=== PATIENT | male | born 1975 | race Caucasian/White ===

== ENCOUNTER 2017-06-08 05:24 | Inpatient (IN) | payer OTHER ==
--- NOTE | 2017-06-08 05:36 | HP ---
COWS - Scale Resting Pulse: 2= [place] 101-120 Sweatin=Flushed/Facial Moisture Restless Observation: 1= Difficult to Sit Still Pupil Size: 1= Pupils >than Normal Bone or Joint Aches: 4=Acute Joint/Muscle Pain Runny Nose/ Eye Tearin= Runny Nose/Eyes GI Upset > 30mins: 1= Stomach Cramp Tremor Observation: 4= Gross Tremor/Twitching Yawning Observation: 1= 1-2x During Session Anxiety or Irritability: 2=Irritable/Anxious Goose Flesh Skin: 0=Smooth Skin COWS Score: 20 CIWA Score - CIWA Score Nausea/Vomitin-No Nausea/No Vomiting Muscle Tremors: 4-Moderate,w/Arms Extend Anxiety: 4-Mod. Anxious/Guarded Agitation: 1-Slight > Activity Paroxysmal Sweats: 2 Orientation: 1-Uncertain about Date Tacttile Disturbances: 0-None Auditory Disturbances: 0-None Visual Disturbances: 0-None Headache: 5-Severe CIWA-Ar Total Score: 17 Admission [facility] - HPI Chief Complaint: Alcohol and heroin withdrawal symptoms Allergies/Adverse Reactions: Allergies Allergy/AdvReac Type Severity Reaction Status Date / Time augumentin Allergy Severe Difficulty Uncoded 06/08/17 05:36 Breathing History of Present Illness: 42 years old male with a long history of alcohol and heroin dependence is seeking admission to detox. Patient has been in previous detox and reports 2 years of sobriety. He has medical history of asthma, emphysema, HTN, seizure disorder, GERD, depression and anxiety. He denies suicide attempt and suicidal ideation at this time. This is his first admission to [facility]. Exam Limitations: Intoxication - Ebola screening Have you traveled outside of the country in the last 21 days: No Have you had contact with anyone from an Ebola affected area: No Have you been sick,other than usual withdrawal symptoms: No Do you have a fever: No - Review of Systems Constitutional: Chills, Loss of Appetite, Malaise, Night Sweats, Changes in sleep EENT: reports: No Symptoms Reported, Nose Congestion, Sinus Pressure Respiratory: reports: No Symptoms reported Cardiac: reports: No Symptoms Reported GI: reports: Poor Appetite, Poor Fluid Intake, Abdominal cramping : reports: No Symptoms Reported Musculoskeletal: reports: Back Pain, Joint Pain, Muscle Pain, Muscle Weakness Integumentary: reports: Dryness, Flushing, Sweating Neuro: reports: Headache, Tremors, Weakness Endocrine: reports: No Symptoms Reported Hematology: reports: No Symptoms Reported Psychiatric: reports: Agitated, Anxious, Depressed Other Systems: Reviewed and Negative Patient History - Patient Medical History Hx Anemia: No Hx Asthma: Yes Hx Chronic Obstructive Pulmonary Disease (COPD): Yes (emphysema) Hx Cancer: No Hx Cardiac Disorders: No Hx Congestive Heart Failure: No Hx Hypertension: Yes Hx Hypercholesterolemia: No Hx Pacemaker: No HX Cerebrovascular Accident: No Hx Seizures: Yes Hx Dementia: No Hx Diabetes: No Hx Gastrointestinal Disorders: Yes (GERD) Hx Liver Disease: No Hx Genitourinary Disorders: No Hx Sexually Transmitted Disorders: No Hx Renal Disease (ESRD): No Hx Thyroid Disease: No Hx Human Immunodeficiency Virus (HIV): No (Negative 2016) Hx Hepatitis C: No (Negative 2016) Hx Depression: Yes Hx Suicide Attempt: No (Denies suicidal ideation at this time) Hx Bipolar Disorder: No Hx Schizophrenia: No Other Medical History: ANXIETY DISORDER - Patient Surgical History Past Surgical History: Yes Hx Neurologic Surgery: No Hx Cataract Extraction: No Hx Cardiac Surgery: No Hx Lung Surgery: No Hx Abdominal Surgery: No Hx Appendectomy: No Hx Cholecystectomy: No Hx Genitourinary Surgery: No Hx Orthopedic Surgery: No Other Surgical History: right arm abscess surgery secondary to heroin use Anesthesia Reaction: No - PPD History Previous Implant?: Yes Documented Results: Negative w/o proof Implanted On Prior [facility] Admission?: No PPD to be Administered?: Yes - Reproductive History Patient is a Female of Child Bearing Age (11 -55 yrs old): No (MALE) - Smoking Cessation Smoking history: Current every day smoker Have you smoked in the past 12 months: Yes Aproximately how many cigarettes per day: 20 Hx Chewing Tobacco Use: No Initiated information on smoking cessation: Yes 'Breaking Loose' booklet given: 06/08/17 - Substance & Tx. History Hx Alcohol Use: Yes Hx Substance Use: Yes Substance Use Type: Heroin, Opiates Hx Substance Use Treatment: Yes ([facility]) - Substances Abused Alcohol Route: Oral Frequency: Daily Amount used: LIQUOR-25 oz Age of first use: 9 Date of Last Use: 06/07/17 Heroin Route: Injection Frequency: Daily Amount used: 5 bags Age of first use: 37 Date of Last Use: 06/07/17 Cocaine Route: Injection Frequency: 3-6 times per week Amount used: 1 GRAM Age of first use: 10 Date of Last Use: 06/07/17 Family Disease History - Family Disease History Family History: Denies Family Disease History: Other: Father (Alcoholic) Admission Physical Exam [facility] - Physical General Appearance: Yes: Moderate Distress, Tremorous, Irritable, Sweating, Anxious HEENTM: Yes: Normal Voice, ALEXANDRA, Nasal Congestion Respiratory: Yes: Lungs Clear, Normal Breath Sounds, No Respiratory Distress Neck: Yes: Supple Breast: Yes: Breast Exam Deferred Cardiology: Yes: Tachycardia Abdominal: Yes: Normal Bowel Sounds Genitourinary: Yes: Within Normal Limits Back: Yes: Normal Inspection Musculoskeletal: Yes: Back pain, Muscle Pain, Muscle weakness Extremities: Yes: Tremors Neurological: Yes: Alert, Normal Mood/Affect, Normal Response Integumentary: Yes: Warm Lymphatic: Yes: Within Normal Limits - Diagnostic (1) Alcohol dependence with uncomplicated withdrawal Current Visit: Yes Status: Chronic (2) Opioid dependence with withdrawal Current Visit: Yes Status: Chronic (3) Cocaine dependence with withdrawal Current Visit: Yes Status: Chronic (4) Emphysema lung Current Visit: Yes Status: Chronic (5) Seizures Current Visit: Yes Status: Chronic (6) GERD (gastroesophageal reflux disease) Current Visit: Yes Status: Chronic (7) HTN (hypertension) Current Visit: Yes Status: Chronic (8) Depression Current Visit: Yes Status: Chronic Qualifiers: Depression Type: unspecified Qualified Code(s): F32.9 - Major depressive disorder, single episode, unspecified Cleared for Admission [facility] - Detox or Rehab [facility] Level of Care: Medically Managed Detox Regimen/Protocol: Methadone/Librium [facility] Breath Alcohol Content Breath Alcohol Content: 0.224 Vital Signs - Vital Signs Vital Signs Refused: Yes Temperature: 97.8 F Temperature Source: Oral Pulse Rate: 105 Respiratory Rate: 20 Blood Pressure: 129/89 BP Location: Left Arm - Height Height: 5 ft 6 in - Weight Weight: 198 lb Weight Measurement Method: Standing Scale Body Mass Index (BMI): 31.9 - Bowel Function Bowel Movement: No Urine Drug Screen - Test Device Lot Number: [id number] Expiration Date: 01/30/19 - Control Is Test Valid: Yes - Results Drug Screen Negative: No Urine Drug Screen Results: JULIAN-Cocaine, OPI-Opiates, BZO-Benzodiazepines ( STATES HIS HEROIN MAY HAVE BEEN TAINTED WITH BENZO. DENIES BZO USE), TCA- Tricyclic Antidepress, OXY-Oxycodone
[2017-06-08] MEDS ORDERED: MENTHOL/PHENOL 1 EACH UD MM PRN (06:03)
[2017-06-08] MEDS ORDERED: IBUPROFEN 400 MG TABLET (FP) PO PRN (06:03)
[2017-06-08] MEDS ORDERED: LOPERAMIDE HCL 2 MG CAPSULE PO PRN (06:03)
[2017-06-08] MEDS ORDERED: MAGNESIUM HYDROX 2400MG/30ML ORAL SUSPENSION 30 ML CUP PO PRN (06:03)
[2017-06-08] MEDS ORDERED: METHADONE HCL 10 MG TABLET (FOR DETOX USE ONLY) PO ONE ×3 (06:03→23:00)
[2017-06-08] MEDS ORDERED: P-EPHED 60MG/TRIPROLIDI 2.5MG TABLET PO PRN (06:03)
[2017-06-08] MEDS ORDERED: guaiFENesin/D-METHORPHAN HB 10 ML UNIT-DOSE CUPS PO PRN (06:03)
[2017-06-08] MEDS ORDERED: MAGNESIUM CITRATE 300 ML BOTTLE PO PRN (06:03)
[2017-06-08] MEDS ORDERED: chlordiazePOXIDE HCL 25 MG CAPSULE PO ONE (06:03)
[2017-06-08] MEDS ORDERED: MAG HYDROX/AL HYDROX/SIMETH 30 ML UNIT-DOSE CUP PO PRN (06:03)
[2017-06-08 06:29] VITALS: BMI 31.9
--- NOTE | 2017-06-08 09:06 | EKG ---
Test Reason : Blood Pressure : / mmHG Vent. Rate : 092 BPM Atrial Rate : 092 BPM P-R Int : 160 ms QRS Dur : 084 ms QT Int : 342 ms P-R-T Axes : 065 034 044 degrees QTc Int : 422 ms NORMAL SINUS RHYTHM NONSPECIFIC T WAVE ABNORMALITY ABNORMAL ECG NO PREVIOUS ECGS AVAILABLE Confirmed by Clint Edwards ([id number]) on 06/08/2017 9:06:20 AM Referred By: Confirmed By:Clint Edwards
[2017-06-08] MEDS: ACETAMINOPHEN 325 MG TABLET (FP) PO PRN ×3 (09:16→22:43)
--- NOTE | 2017-06-08 09:56 | PN ---
S CIWA - CIWA Score Nausea/Vomitin-Mild Nausea/No Vomiting Muscle Tremors: 4-Moderate,w/Arms Extend Anxiety: 4-Mod. Anxious/Guarded Agitation: 4-Moderately Restless Paroxysmal Sweats: 1-Minimal Palms Moist Orientation: 0-Oriented Tacttile Disturbances: 0-None Auditory Disturbances: 0-None Visual Disturbances: 0-None Headache: 0-None Present CIWA-Ar Total Score: 14 [facility] COWS - Scale Resting Pulse: 1= [place] 81-100 Sweatin= Chills/Flushing Restless Observation: 3= Extraneous Movement Pupil Size: 0= Normal to Room Light Bone or Joint Aches: 2= Severe Diffuse Aches Runny Nose/ Eye Tearin= Runny Nose/Eyes GI Upset > 30mins: 2= Nausea/Diarrhea Tremor Observation of Outstretched Hands: 2= Slight Tremor Visible Yawning Observation: 1= 1-2x During Session Anxiety or Irritability: 2=Irritable/Anxious Goose Flesh Skin: 0=Smooth Skin COWS Score: 16 S Progress Note (SOAP) Subjective: joint ache sweat tremor chill yawning nausea headaches Objective: 06/08/17 09:56 Vital Signs Temperature 97.9 F 06/08/17 06:30 Pulse Rate 101 H 06/08/17 06:30 Respiratory Rate 20 06/08/17 06:30 Blood Pressure 140/98 06/08/17 06:30 O2 Sat by Pulse Oximetry (%) lab not available Assessment: 06/08/17 09:57 withdrawal sx Plan: continue detox
[2017-06-08 10:19] LABS: HEMATOCRIT 46.6 % (35.4-49); HEMOGLOBIN 15.4 GM/dL (11.7-16.9); MCH 28.8 pg (25.7-33.7); MEAN CELL VOLUME 87.4 fl (80-96); MEAN PLT VOLUME 8.5 fl (7.5-11.1); PLATELET COUNT 224 K/MM3 (134-434); RBC 5.33 M/mm3 (4.00-5.60); RDW 13.5 % (11.9-15.9); WHITE BLOOD COUNT 10.1 K/mm3 (4.0-10.0)
[2017-06-08 10:23] LABS: URINE APPEARANCE CLEAR; URINE BILIRUBIN NEGATIVE (NEGATIVE); URINE BLOOD NEGATIVE (NEGATIVE); URINE COLOR LTYELLOW; URINE GLUCOSE (UA) NEGATIVE (NEGATIVE); URINE KETONE NEGATIVE (NEGATIVE); URINE LEUK ESTERASE NEGATIVE (NEGATIVE); URINE NITRITE NEGATIVE (NEGATIVE); URINE PROTEIN NEGATIVE (NEGATIVE); URINE UROBILINOGEN NEGATIVE mg/dL (0.2-1.0)
[2017-06-08] MEDS: amLODIPine BESYLATE 5 MG TABLET (FP) PO SCH ×2 (10:30→22:29)
[2017-06-08] MEDS: chlordiazePOXIDE HCL 25 MG CAPSULE PO SCH ×3 (10:30→22:28)
[2017-06-08] MEDS: PRENATAL VITAMINS W/ FOLIC ACID TABLET (FP) PO SCH (10:30)
[2017-06-08] MEDS: NICOTINE 14 MG/24 HOURS TOPICAL PATCH TD SCH (10:30)
[2017-06-08 10:34] LABS: CHLORIDE 103 mmol/L (98-107); POTASSIUM 3.7 mmol/L (3.5-5.1); SODIUM 141 mmol/L (136-145)
[2017-06-08 10:55] LABS: ALBUMIN 4.1 g/dl (3.4-5.0); ALK PHOS 155 U/L (45-117); ANION GAP 11 (8-16); BILIRUBIN,TOTAL 0.4 mg/dL (0.2-1.0); BLOOD UREA NITROGEN 12 mg/dL (7-18); CALCIUM 9.2 mg/dL (8.5-10.1); CO2 27 mmol/L (21-32); CREATININE 1.1 mg/dL (0.7-1.3); GLUCOSE,RANDOM 102 mg/dL (74-106); SGOT/AST 25 U/L (15-37); SGPT/ALT 25 U/L (12-78); TOT PROT 7.6 g/dl (6.4-8.2)
[2017-06-08] MEDS ORDERED: GABAPENTIN 100 MG CAPSULE (FP) PO SCH (11:00)
--- NOTE | 2017-06-08 11:57 | CONSULT ---
[facility] Psychiatric Consult - Data Date of interview: 06/08/17 Admission source: [facility] Identifying data: Pt. is a 42 year old single male, without kids, unemployed and currently homeless. This is patient's first admission to [facility]. Pt. admitted to for alcohol, cocaine and opiate dependence. Substance Abuse History: Following information confirmed with Mr. Berman: - Smoking Cessation. Smoking history: Current every day smoker. Have you smoked in the past 12 months: Yes. Aproximately how many cigarettes per day: 20. Hx Chewing Tobacco Use: No. Initiated information on smoking cessation: Yes. ' Breaking Loose' booklet given: 06/08/17. - Substance & Tx. History. Hx Alcohol Use: Yes. Hx Substance Use: Yes. Substance Use Type: Heroin, Opiates. Hx Substance Use Treatment: Yes ([facility]). - Substances Abused. Alcohol. Route: Oral. Frequency: Daily. Amount used: LIQUOR-25 oz. Age of first use: 9. Date of Last Use: 06/07/17. Heroin. Route: Injection. Frequency: Daily. Amount used: 5 bags. Age of first use: 37. Date of Last Use: 06/07/17. Cocaine. Route: Injection. Frequency: 3-6 times per week. Amount used: 1 GRAM. Age of first use: 10. Date of Last Use: 06/07/17 Medical History: Emphysema, hypertension, and Seizures Psychiatric History: Pt. reports multiple psychiatric hospitalizations, most recent hospitalization occured in 1999. Pt unable to recall the facility. Currently, patient does not have an outpatient psychiatrist. Reports last seeing a psychitrist approximately 4-5 months ago. States he has a diagnosis of ADHD, CONCEPCION, and MDD. States he is prescribed traozodone 100mg, vistaril 50mg qhs , and is unable to recall the other medications. Pt. states he takes the trazodone "sporadically" and vistaril for sleep. Pt. denies h/o suicide attempt. Physical/Sexual Abuse/Trauma History: Denies. Mental Status Exam - Mental Status Exam Alert and Oriented to: Time, Place, Person Cognitive Function: Good Patient Appearance: Unkempt Mood: Withdrawn Affect: Mood Congruent Patient Behavior: Fatigued, Cooperative Speech Pattern: Delayed Voice Loudness: Normal Thought Process: Goal Oriented Thought Disorder: Not Present Hallucinations: Denies Suicidal Ideation: Denies Homicidal Ideation: Denies Insight/Judgement: Poor Sleep: Poorly Appetite: Fair Muscle strength/Tone: Normal Gait/Station: Other (Did not observe patient's gait.) Psychiatric Findings - Problem List ([place] 1, 2,3) (1) CONCEPCION (generalized anxiety disorder) Current Visit: Yes Status: Chronic Comment: Self reports. Will order vistaril for anxiety. (2) MDD (major depressive disorder) Current Visit: Yes Status: Chronic Comment: Self reports. Will order trazodone (3) ADHD Current Visit: No Status: Chronic Comment: Self reports. (4) Alcohol dependence with uncomplicated withdrawal Current Visit: Yes Status: Acute (5) Cocaine dependence with withdrawal Current Visit: Yes Status: Acute (6) Opioid dependence with withdrawal Current Visit: Yes Status: Acute - Initial Treatment Plan Initial Treatment Plan: Psychoeducation provided. Detoxification provided. Trazodone 100mg qhs + Vistaril 50mg q4h ordered. Benefits and side effects ( Priapism) discussed. Verbal consent given. Will continue to monitor.
[2017-06-08] MEDS ORDERED: PNEUMOCOCCAL 23 VACCINE 0.5 ML VIAL IM ONE (12:00)
[2017-06-08] MEDS ORDERED: PNEUMOC 13-VAL CONJ-DIP CRM/PF 0.5 ML DISP.SYRIN IM ONE (12:00)
[2017-06-08] MEDS: hydrOXYzine PAMOATE 50 MG CAPSULE (FP) PO PRN (12:23)
[2017-06-08] MEDS: RANITIDINE HCL 150 MG TABLET (FP) PO SCH ×2 (12:23→22:29)
[2017-06-08] MEDS: GABAPENTIN 100 MG CAPSULE (FP) PO SCH ×2 (14:21→22:29)
[2017-06-08] MEDS: chlordiazePOXIDE HCL 25 MG CAPSULE PO PRN (14:25)
[2017-06-08] MEDS ORDERED: traZODone HCL 50 MG TABLET (FP) PO SCH (22:00)
[2017-06-08] MEDS: traZODone HCL 50 MG TABLET (FP) PO SCH (22:29)
[2017-06-08] MEDS: THIAMINE HCL 100 MG TABLET (FP) PO SCH (22:30)
[2017-06-09] MEDS: GABAPENTIN 100 MG CAPSULE (FP) PO SCH ×3 (05:16→22:39)
[2017-06-09] MEDS: chlordiazePOXIDE HCL 25 MG CAPSULE PO SCH ×4 (05:16→22:41)
[2017-06-09] MEDS ORDERED: cloNIDine HCL 0.1 MG TABLET PO ONE (06:32)
--- NOTE | 2017-06-09 09:47 | PN ---
[facility] CIWA - CIWA Score Nausea/Vomitin-Mild Nausea/No Vomiting Muscle Tremors: 3 Anxiety: 4-Mod. Anxious/Guarded Agitation: 3 Paroxysmal Sweats: 1-Minimal Palms Moist Orientation: 0-Oriented Tacttile Disturbances: 0-None Auditory Disturbances: 0-None Visual Disturbances: 0-None Headache: 0-None Present CIWA-Ar Total Score: 12 [facility] COWS - Scale Resting Pulse: 0= [place] 80 or Below Sweatin= Chills/Flushing Restless Observation: 3= Extraneous Movement Pupil Size: 0= Normal to Room Light Bone or Joint Aches: 2= Severe Diffuse Aches Runny Nose/ Eye Tearin= Nasal Congestion GI Upset > 30mins: 2= Nausea/Diarrhea Tremor Observation of Outstretched Hands: 2= Slight Tremor Visible Yawning Observation: 1= 1-2x During Session Anxiety or Irritability: 1=Feels Anxious/Irritable Goose Flesh Skin: 0=Smooth Skin COWS Score: 13 [facility] Progress Note (SOAP) Subjective: sweat tremor anxiety irritability agitation gi distress running nose Objective: 06/09/17 09:41 Vital Signs Temperature 97.7 F 06/09/17 06:21 Pulse Rate 68 06/09/17 06:21 Respiratory Rate 16 06/09/17 06:21 Blood Pressure 155/110 06/09/17 06:21 O2 Sat by Pulse Oximetry (%) Laboratory Last Values WBC 10.1 K/mm3 (4.0-10.0) H 06/08/17 07:00 RBC 5.33 M/mm3 (4.00-5.60) 06/08/17 07:00 Hgb 15.4 GM/dL (11.7-16.9) 06/08/17 07:00 Hct 46.6 % (35.4-49) 06/08/17 07:00 MCV 87.4 fl (80-96) 06/08/17 07:00 MCH 28.8 pg (25.7-33.7) 06/08/17 07:00 MCHC 33.0 g/dl (32.0-35.9) 06/08/17 07:00 RDW 13.5 % (11.9-15.9) 06/08/17 07:00 Plt Count 224 K/MM3 (134-434) 06/08/17 07:00 MPV 8.5 fl (7.5-11.1) 06/08/17 07:00 Sodium 141 mmol/L (136-145) 06/08/17 07:00 Potassium 3.7 mmol/L (3.5-5.1) 06/08/17 07:00 Chloride 103 mmol/L (98-107) 06/08/17 07:00 Carbon Dioxide 27 mmol/L (21-32) 06/08/17 07:00 Anion Gap 11 (8-16) 06/08/17 07:00 BUN 12 mg/dL (7-18) 06/08/17 07:00 Creatinine 1.1 mg/dL (0.7-1.3) 06/08/17 07:00 Creat Clearance w eGFR > 60 (>60) 06/08/17 07:00 Random Glucose 102 mg/dL (74-106) 06/08/17 07:00 Calcium 9.2 mg/dL (8.5-10.1) 06/08/17 07:00 Total Bilirubin 0.4 mg/dL (0.2-1.0) 06/08/17 07:00 AST 25 U/L (15-37) 06/08/17 07:00 ALT 25 U/L (12-78) 06/08/17 07:00 Alkaline Phosphatase 155 U/L (45-117) H 06/08/17 07:00 Total Protein 7.6 g/dl (6.4-8.2) 06/08/17 07:00 Albumin 4.1 g/dl (3.4-5.0) 06/08/17 07:00 Urine Color Ltyellow 06/08/17 08:00 Urine Appearance Clear 06/08/17 08:00 Urine pH 5.0 (5.0-8.0) 06/08/17 08:00 Ur Specific [place] 1.014 (1.001-1.035) 06/08/17 08:00 Urine Protein Negative (NEGATIVE) 06/08/17 08:00 Urine Glucose (UA) Negative (NEGATIVE) 06/08/17 08:00 Urine Ketones Negative (NEGATIVE) 06/08/17 08:00 Urine Blood Negative (NEGATIVE) 06/08/17 08:00 Urine Nitrite Negative (NEGATIVE) 06/08/17 08:00 Urine Bilirubin Negative (NEGATIVE) 06/08/17 08:00 Urine Urobilinogen Negative mg/dL (0.2-1.0) 06/08/17 08:00 Ur Leukocyte Esterase Negative (NEGATIVE) 06/08/17 08:00 RPR Titer Nonreactive (NONREACTIVE) 06/08/17 07:00 Hepatitis C Antibody <0.1 s/co ratio (0.0-0.9) 06/08/17 07:00 HIV 1&2 Antibody Screen Negative 06/08/17 07:00 HIV P24 Antigen Negative 06/08/17 07:00 lab noted Assessment: 06/09/17 09:47 withdrawal sx rule out hypertension Plan: continue detox started amlodipin
[2017-06-09] MEDS ORDERED: METHADONE HCL 10 MG TABLET (FOR DETOX USE ONLY) PO SCH (10:00)
[2017-06-09] MEDS: LISINOPRIL 5 MG TABLET (FP) PO SCH ×2 (10:23→22:40)
[2017-06-09] MEDS: IBUPROFEN 400 MG TABLET (FP) PO PRN ×3 (10:23→22:40)
[2017-06-09] MEDS: PRENATAL VITAMINS W/ FOLIC ACID TABLET (FP) PO SCH (10:23)
[2017-06-09] MEDS: amLODIPine BESYLATE 5 MG TABLET (FP) PO SCH ×2 (10:23→22:39)
[2017-06-09] MEDS: NICOTINE 14 MG/24 HOURS TOPICAL PATCH TD SCH (10:24)
[2017-06-09] MEDS: chlordiazePOXIDE HCL 25 MG CAPSULE PO PRN ×2 (14:20→19:18)
[2017-06-09] MEDS: hydrOXYzine PAMOATE 50 MG CAPSULE (FP) PO PRN ×2 (14:20→22:39)
[2017-06-09] MEDS: ACETAMINOPHEN 325 MG TABLET (FP) PO PRN (19:19)
[2017-06-09] MEDS: traZODone HCL 50 MG TABLET (FP) PO SCH (22:39)
[2017-06-09] MEDS: THIAMINE HCL 100 MG TABLET (FP) PO SCH (22:39)
[2017-06-10] MEDS: chlordiazePOXIDE HCL 25 MG CAPSULE PO PRN ×3 (02:20→20:45)
[2017-06-10] MEDS: chlordiazePOXIDE HCL 25 MG CAPSULE PO SCH (07:38)
[2017-06-10] MEDS: GABAPENTIN 100 MG CAPSULE (FP) PO SCH ×3 (07:38→22:16)
[2017-06-10] MEDS: hydrOXYzine PAMOATE 50 MG CAPSULE (FP) PO PRN ×3 (08:54→22:17)
[2017-06-10] MEDS ORDERED: METHOCARBAMOL 500 MG TABLET PO ONE (08:54)
[2017-06-10] MEDS: IBUPROFEN 400 MG TABLET (FP) PO PRN ×3 (08:54→20:45)
--- NOTE | 2017-06-10 10:12 | PN ---
[facility] Progress Note (SOAP) Subjective: joint aches sweat tremor anxiety Objective: 06/10/17 10:11 Vital Signs Temperature 96.4 F L 06/10/17 07:30 Pulse Rate 57 L 06/10/17 07:30 Respiratory Rate 16 06/10/17 07:30 Blood Pressure 100/50 06/10/17 07:30 O2 Sat by Pulse Oximetry (%) Laboratory Last Values WBC 10.1 K/mm3 (4.0-10.0) H 06/08/17 07:00 RBC 5.33 M/mm3 (4.00-5.60) 06/08/17 07:00 Hgb 15.4 GM/dL (11.7-16.9) 06/08/17 07:00 Hct 46.6 % (35.4-49) 06/08/17 07:00 MCV 87.4 fl (80-96) 06/08/17 07:00 MCH 28.8 pg (25.7-33.7) 06/08/17 07:00 MCHC 33.0 g/dl (32.0-35.9) 06/08/17 07:00 RDW 13.5 % (11.9-15.9) 06/08/17 07:00 Plt Count 224 K/MM3 (134-434) 06/08/17 07:00 MPV 8.5 fl (7.5-11.1) 06/08/17 07:00 Sodium 141 mmol/L (136-145) 06/08/17 07:00 Potassium 3.7 mmol/L (3.5-5.1) 06/08/17 07:00 Chloride 103 mmol/L (98-107) 06/08/17 07:00 Carbon Dioxide 27 mmol/L (21-32) 06/08/17 07:00 Anion Gap 11 (8-16) 06/08/17 07:00 BUN 12 mg/dL (7-18) 06/08/17 07:00 Creatinine 1.1 mg/dL (0.7-1.3) 06/08/17 07:00 Creat Clearance w eGFR > 60 (>60) 06/08/17 07:00 Random Glucose 102 mg/dL (74-106) 06/08/17 07:00 Calcium 9.2 mg/dL (8.5-10.1) 06/08/17 07:00 Total Bilirubin 0.4 mg/dL (0.2-1.0) 06/08/17 07:00 AST 25 U/L (15-37) 06/08/17 07:00 ALT 25 U/L (12-78) 06/08/17 07:00 Alkaline Phosphatase 155 U/L (45-117) H 06/08/17 07:00 Total Protein 7.6 g/dl (6.4-8.2) 06/08/17 07:00 Albumin 4.1 g/dl (3.4-5.0) 06/08/17 07:00 Urine Color Ltyellow 06/08/17 08:00 Urine Appearance Clear 06/08/17 08:00 Urine pH 5.0 (5.0-8.0) 06/08/17 08:00 Ur Specific [place] 1.014 (1.001-1.035) 06/08/17 08:00 Urine Protein Negative (NEGATIVE) 06/08/17 08:00 Urine Glucose (UA) Negative (NEGATIVE) 06/08/17 08:00 Urine Ketones Negative (NEGATIVE) 06/08/17 08:00 Urine Blood Negative (NEGATIVE) 06/08/17 08:00 Urine Nitrite Negative (NEGATIVE) 06/08/17 08:00 Urine Bilirubin Negative (NEGATIVE) 06/08/17 08:00 Urine Urobilinogen Negative mg/dL (0.2-1.0) 06/08/17 08:00 Ur Leukocyte Esterase Negative (NEGATIVE) 06/08/17 08:00 RPR Titer Nonreactive (NONREACTIVE) 06/08/17 07:00 Hepatitis C Antibody <0.1 s/co ratio (0.0-0.9) 06/08/17 07:00 HIV 1&2 Antibody Screen Negative 06/08/17 07:00 HIV P24 Antigen Negative 06/08/17 07:00 lab noted Assessment: 06/10/17 10:12 withdrawal sx Plan: continue detox
[2017-06-10] MEDS: METHADONE HCL 5 MG TABLET (FOR DETOX USE ONLY) PO SCH (10:23)
[2017-06-10] MEDS: PRENATAL VITAMINS W/ FOLIC ACID TABLET (FP) PO SCH (10:24)
[2017-06-10] MEDS: NICOTINE 14 MG/24 HOURS TOPICAL PATCH TD SCH (10:24)
[2017-06-10] MEDS: chlordiazePOXIDE 5 MG CAPSULE PO SCH ×3 (10:25→22:16)
[2017-06-10] MEDS: amLODIPine BESYLATE 5 MG TABLET (FP) PO SCH (10:27)
[2017-06-10] MEDS: ACETAMINOPHEN 325 MG TABLET (FP) PO PRN (16:58)
[2017-06-10] MEDS: traZODone HCL 50 MG TABLET (FP) PO SCH (22:15)
[2017-06-10] MEDS: THIAMINE HCL 100 MG TABLET (FP) PO SCH (22:16)
[2017-06-11] MEDS: chlordiazePOXIDE 5 MG CAPSULE PO SCH (05:02)
[2017-06-11] MEDS: IBUPROFEN 400 MG TABLET (FP) PO PRN ×2 (05:02→16:27)
[2017-06-11] MEDS: GABAPENTIN 100 MG CAPSULE (FP) PO SCH ×3 (05:02→22:35)
[2017-06-11] MEDS ORDERED: ALBUTEROL SO4 0.083% IH SOL 2.5 MG/3 ML VIAL.NEB. NEB ONE (08:46)
[2017-06-11] MEDS: PRENATAL VITAMINS W/ FOLIC ACID TABLET (FP) PO SCH (10:08)
[2017-06-11] MEDS: METHADONE HCL 5 MG TABLET (FOR DETOX USE ONLY) PO SCH (10:08)
[2017-06-11] MEDS: METHOCARBAMOL 500 MG TABLET PO SCH ×4 (10:09→22:35)
[2017-06-11] MEDS: chlordiazePOXIDE HCL 10 MG CAPSULE PO SCH ×3 (10:09→22:35)
[2017-06-11] MEDS: hydrOXYzine PAMOATE 50 MG CAPSULE (FP) PO PRN ×4 (10:09→22:35)
--- NOTE | 2017-06-11 10:50 | PN ---
[facility] Progress Note (SOAP) Subjective: sweats muscle aches chest congestion body aches Objective: 06/11/17 10:48 Vital Signs Temperature 96.8 F L 06/11/17 06:10 Pulse Rate 64 06/11/17 06:10 Respiratory Rate 16 06/11/17 06:10 Blood Pressure 132/79 06/11/17 06:10 O2 Sat by Pulse Oximetry (%) Laboratory Tests 06/08/17 06/08/17 06/08/17 07:00 07:00 07:00 WBC 10.1 H RBC 5.33 Hgb 15.4 Hct 46.6 MCV 87.4 MCH 28.8 MCHC 33.0 RDW 13.5 Plt Count 224 MPV 8.5 Sodium 141 Potassium 3.7 Chloride 103 Carbon Dioxide 27 Anion Gap 11 BUN 12 Creatinine 1.1 Creat Clearance w eGFR > 60 Random Glucose 102 Calcium 9.2 Total Bilirubin 0.4 AST 25 ALT 25 Alkaline Phosphatase 155 H Total Protein 7.6 Albumin 4.1 Urine Color Urine Appearance Urine pH Ur Specific [place] Urine Protein Urine Glucose (UA) Urine Ketones Urine Blood Urine Nitrite Urine Bilirubin Urine Urobilinogen Ur Leukocyte Esterase RPR Titer Nonreactive Hepatitis C Antibody HIV 1&2 Antibody Screen HIV P24 Antigen 06/08/17 06/08/17 06/08/17 07:00 07:00 08:00 WBC RBC Hgb Hct MCV MCH MCHC RDW Plt Count MPV Sodium Potassium Chloride Carbon Dioxide Anion Gap BUN Creatinine Creat Clearance w eGFR Random Glucose Calcium Total Bilirubin AST ALT Alkaline Phosphatase Total Protein Albumin Urine Color Ltyellow Urine Appearance Clear Urine pH 5.0 Ur Specific [place] 1.014 Urine Protein Negative Urine Glucose (UA) Negative Urine Ketones Negative Urine Blood Negative Urine Nitrite Negative Urine Bilirubin Negative Urine Urobilinogen Negative Ur Leukocyte Esterase Negative RPR Titer Hepatitis C Antibody <0.1 HIV 1&2 Antibody Screen Negative HIV P24 Antigen Negative aaox3 ambulating no acute distress Assessment: 06/11/17 10:49 withdrawal sx Plan: continue detox increase fluids flexiril 10mg prn roboxin 500 mg qid
[2017-06-11] MEDS: NICOTINE 14 MG/24 HOURS TOPICAL PATCH TD SCH (11:05)
[2017-06-11] MEDS ORDERED: LIDOCAINE 5% TOPICAL PATCH TP ONE (12:30)
[2017-06-11] MEDS: NICOTINE POLACRILEX 2 MG GUM BC PRN (16:28)
[2017-06-11] MEDS: THIAMINE HCL 100 MG TABLET (FP) PO SCH (22:35)
[2017-06-11] MEDS: traZODone HCL 50 MG TABLET (FP) PO SCH (22:35)
[2017-06-11] MEDS: LIDOCAINE PATCH REMOVAL MC SCH (22:39)
[2017-06-12] MEDS: chlordiazePOXIDE HCL 10 MG CAPSULE PO SCH (05:31)
[2017-06-12] MEDS: GABAPENTIN 100 MG CAPSULE (FP) PO SCH ×3 (05:31→22:31)
[2017-06-12] MEDS: IBUPROFEN 400 MG TABLET (FP) PO PRN ×2 (09:03→15:59)
[2017-06-12] MEDS ORDERED: METHADONE HCL 10 MG TABLET (FOR DETOX USE ONLY) PO SCH (10:00)
[2017-06-12] MEDS: METHOCARBAMOL 500 MG TABLET PO SCH ×4 (10:20→22:31)
[2017-06-12] MEDS: NICOTINE 14 MG/24 HOURS TOPICAL PATCH TD SCH (10:20)
[2017-06-12] MEDS: NICOTINE POLACRILEX 2 MG GUM BC PRN ×3 (10:20→22:31)
[2017-06-12] MEDS: PRENATAL VITAMINS W/ FOLIC ACID TABLET (FP) PO SCH (10:20)
[2017-06-12] MEDS: hydrOXYzine PAMOATE 50 MG CAPSULE (FP) PO PRN ×4 (10:23→22:31)
[2017-06-12] MEDS ORDERED: chlordiazePOXIDE HCL 25 MG CAPSULE PO ONE ×2 (10:31→11:00)
--- NOTE | 2017-06-12 15:14 | PN ---
B[facility] Progress Note (SOAP) Subjective: generalized aches shakes Objective: 06/12/17 15:13 anxious irritable Vital Signs Temperature 98.4 F 06/12/17 14:52 Pulse Rate 84 06/12/17 14:52 Respiratory Rate 18 06/12/17 14:52 Blood Pressure 142/74 06/12/17 14:52 O2 Sat by Pulse Oximetry (%) Assessment: 06/12/17 15:13 withdrawal sx Plan: continue detox D/c for tomorrow
[2017-06-12] MEDS ORDERED: LIDOCAINE 5% TOPICAL PATCH TP ONE (15:59)
[2017-06-12] MEDS ORDERED: LIDOCAINE PATCH REMOVAL MC SCH (22:00)
[2017-06-12] MEDS: traZODone HCL 50 MG TABLET (FP) PO SCH (22:31)
[2017-06-12] MEDS: THIAMINE HCL 100 MG TABLET (FP) PO SCH (22:31)
[2017-06-12] MEDS: LIDOCAINE PATCH REMOVAL MC SCH (22:32)
[2017-06-13] MEDS: GABAPENTIN 100 MG CAPSULE (FP) PO SCH (05:40)
[2017-06-13] MEDS: hydrOXYzine PAMOATE 50 MG CAPSULE (FP) PO PRN (05:41)
[2017-06-13] MEDS ORDERED: METHADONE HCL 5 MG TABLET (FOR DETOX USE ONLY) PO SCH (06:00)
[2017-06-13 06:37] VITALS: BP 141/72; PULSE 64; TEMP 97.7
[2017-06-13] MEDS: IBUPROFEN 400 MG TABLET (FP) PO PRN (08:55)
--- NOTE | 2017-06-13 09:20 | DS ---
[facility] Detox Discharge Summary Admission Date: 06/08/17 Discharge Date: 06/13/17 - History Present History: Alcohol Dependence, Opioid Dependence - Physical Exam Results Vital Signs: Vital Signs Temperature 97.7 F 06/13/17 06:00 Pulse Rate 64 06/13/17 06:00 Respiratory Rate 18 06/13/17 06:00 Blood Pressure 141/72 06/13/17 06:00 O2 Sat by Pulse Oximetry (%) Pertinent Admission Physical Exam Findings: withdrawal sx Vital Signs Temperature 97.7 F 06/13/17 06:00 Pulse Rate 64 06/13/17 06:00 Respiratory Rate 18 06/13/17 06:00 Blood Pressure 141/72 06/13/17 06:00 O2 Sat by Pulse Oximetry (%) Laboratory Last Values WBC 10.1 K/mm3 (4.0-10.0) H 06/08/17 07:00 RBC 5.33 M/mm3 (4.00-5.60) 06/08/17 07:00 Hgb 15.4 GM/dL (11.7-16.9) 06/08/17 07:00 Hct 46.6 % (35.4-49) 06/08/17 07:00 MCV 87.4 fl (80-96) 06/08/17 07:00 MCH 28.8 pg (25.7-33.7) 06/08/17 07:00 MCHC 33.0 g/dl (32.0-35.9) 06/08/17 07:00 RDW 13.5 % (11.9-15.9) 06/08/17 07:00 Plt Count 224 K/MM3 (134-434) 06/08/17 07:00 MPV 8.5 fl (7.5-11.1) 06/08/17 07:00 Sodium 141 mmol/L (136-145) 06/08/17 07:00 Potassium 3.7 mmol/L (3.5-5.1) 06/08/17 07:00 Chloride 103 mmol/L (98-107) 06/08/17 07:00 Carbon Dioxide 27 mmol/L (21-32) 06/08/17 07:00 Anion Gap 11 (8-16) 06/08/17 07:00 BUN 12 mg/dL (7-18) 06/08/17 07:00 Creatinine 1.1 mg/dL (0.7-1.3) 06/08/17 07:00 Creat Clearance w eGFR > 60 (>60) 06/08/17 07:00 Random Glucose 102 mg/dL (74-106) 06/08/17 07:00 Calcium 9.2 mg/dL (8.5-10.1) 06/08/17 07:00 Total Bilirubin 0.4 mg/dL (0.2-1.0) 06/08/17 07:00 AST 25 U/L (15-37) 06/08/17 07:00 ALT 25 U/L (12-78) 06/08/17 07:00 Alkaline Phosphatase 155 U/L (45-117) H 06/08/17 07:00 Total Protein 7.6 g/dl (6.4-8.2) 06/08/17 07:00 Albumin 4.1 g/dl (3.4-5.0) 06/08/17 07:00 Urine Color Ltyellow 06/08/17 08:00 Urine Appearance Clear 06/08/17 08:00 Urine pH 5.0 (5.0-8.0) 06/08/17 08:00 Ur Specific [place] 1.014 (1.001-1.035) 06/08/17 08:00 Urine Protein Negative (NEGATIVE) 06/08/17 08:00 Urine Glucose (UA) Negative (NEGATIVE) 06/08/17 08:00 Urine Ketones Negative (NEGATIVE) 06/08/17 08:00 Urine Blood Negative (NEGATIVE) 06/08/17 08:00 Urine Nitrite Negative (NEGATIVE) 06/08/17 08:00 Urine Bilirubin Negative (NEGATIVE) 06/08/17 08:00 Urine Urobilinogen Negative mg/dL (0.2-1.0) 06/08/17 08:00 Ur Leukocyte Esterase Negative (NEGATIVE) 06/08/17 08:00 RPR Titer Nonreactive (NONREACTIVE) 06/08/17 07:00 Hepatitis C Antibody <0.1 s/co ratio (0.0-0.9) 06/08/17 07:00 HIV 1&2 Antibody Screen Negative 06/08/17 07:00 HIV P24 Antigen Negative 06/08/17 07:00 lab noted - Treatment Hospital Course: Detox Protocol Followed, Detoxed Safely, Responded well, Discharged Condition Good, Rehab Referral Accepted Patient has Accepted a Rehab Referral to: as per counselor arranged - Medication Discharge Medications: Ambulatory Orders Dextroamphetamine/Amphetamine [Adderall 10 mg Tablet] 10 mg PO DAILY 06/08/17 Trazodone HCl 50 mg PO HS 06/08/17 - Diagnosis (1) Alcohol dependence with uncomplicated withdrawal Current Visit: Yes Status: Acute (2) Opioid dependence with withdrawal Current Visit: Yes Status: Acute (3) ADHD Current Visit: Yes Status: Suspected Qualifiers: Attention deficit-hyperactivity disorder type: unspecified Qualified Code(s ): F90.9 - Attention-deficit hyperactivity disorder, unspecified type - AMA Did Patient Leave Against Medical Advice: No
== END 2017-06-13 09:11 | disposition home or self-care (01) | DRG 773 ==
LOC: YASAS 05:24 → Y6N 05:32
PROVIDERS: ADMIT Internal Medicine; ATTEND Internal Medicine
PROC: HZ2ZZZZ Detoxification Services for Substance Abuse Treatment (ICD-10-PCS; principal; 2017-06-08)
DX: F11.23 Opioid dependence with withdrawal (principal); F10.230 Alcohol dependence with withdrawal, uncomplicated; F14.20 Cocaine dependence, uncomplicated; F17.210 Nicotine dependence, cigarettes, uncomplicated; F90.9 Attention-deficit hyperactivity disorder, unspecified type; F33.9 Major depressive disorder, recurrent, unspecified; F41.1 Generalized anxiety disorder; J45.909 Unspecified asthma, uncomplicated; J43.9 Emphysema, unspecified; K21.9 Gastro-esophageal reflux disease without esophagitis; I10 Essential (primary) hypertension; G40.909 Epilepsy, unspecified, not intractable, without status epilepticus; R00.0 Tachycardia, unspecified; Z88.1 Allergy status to other antibiotic agents; Z59.0 Homelessness
CPT/HCPCS: 36415; 80053; 81003; 85027; 86593; 86803; 87389; 90732; 93005; 93010; 94640; G0009; J0735

== ENCOUNTER 2017-07-27 08:34 | Inpatient (IN) | payer OTHER ==
[2017-07-27 08:41] VITALS: BMI 32.1
[2017-07-27] MEDS ORDERED: guaiFENesin/D-METHORPHAN HB 10 ML UNIT-DOSE CUPS PO PRN (10:28)
[2017-07-27] MEDS ORDERED: MAGNESIUM HYDROX 2400MG/30ML ORAL SUSPENSION 30 ML CUP PO PRN (10:28)
[2017-07-27] MEDS ORDERED: P-EPHED 60MG/TRIPROLIDI 2.5MG TABLET PO PRN (10:28)
[2017-07-27] MEDS ORDERED: MAGNESIUM CITRATE 300 ML BOTTLE PO PRN (10:28)
[2017-07-27] MEDS ORDERED: MENTHOL/PHENOL 1 EACH UD MM PRN (10:28)
[2017-07-27] MEDS ORDERED: MAG HYDROX/AL HYDROX/SIMETH 30 ML UNIT-DOSE CUP PO PRN (10:28)
--- NOTE | 2017-07-27 10:28 | HP ---
COWS - Scale Resting Pulse: 0= [place] 80 or Below Sweatin= Chills/Flushing Restless Observation: 1= Difficult to Sit Still Pupil Size: 1= Pupils >than Normal Bone or Joint Aches: 1= Mild Discomfort Runny Nose/ Eye Tearin= Nasal Congestion GI Upset > 30mins: 5=Frequent Vomit/Diarrhea Tremor Observation: 1= Tremor [place], Not Seen Yawning Observation: 1= 1-2x During Session Anxiety or Irritability: 2=Irritable/Anxious Goose Flesh Skin: 3=Piloerection COWS Score: 17 Admission ROS S - [facility] Chief Complaint: herion and benzodiazepine withdrawal sx Allergies/Adverse Reactions: Allergies Allergy/AdvReac Type Severity Reaction Status Date / Time amoxicillin [From Augmentin] Allergy Severe Difficulty Verified 07/27/17 09:55 Breathing clavulanic acid Allergy Severe Difficulty Verified 07/27/17 09:55 [From Augmentin] Breathing Fish Containing Products Allergy Verified 07/27/17 09:55 augumentin Allergy Severe Difficulty Uncoded 07/27/17 09:55 Breathing History of Present Illness: 42 yo m with h/o opioid use diorder, severe and benzodiazepine dependence with h /o withdrawl sx, smokes 1PPD [id number] inpatient detoification because f withdrawawl sx. PMHX withdrwal seiures, anxiety, depression adn insomnia, thriisty. no DTs or SI. Exam Limitations: No Limitations - Ebola screening Have you traveled outside of the country in the last 21 days: No Have you had contact with anyone from an Ebola affected area: No Have you been sick,other than usual withdrawal symptoms: No Do you have a fever: No - Review of Systems Constitutional: Chills, Diaphoresis, Night Sweats, Changes in sleep, Weight Stable EENT: reports: Tearing, Nose Congestion Respiratory: reports: No Symptoms reported Cardiac: reports: No Symptoms Reported GI: reports: Diarrhea, Nausea, Poor Appetite, Poor Fluid Intake, Indigestion, Abdominal cramping : reports: No Symptoms Reported Musculoskeletal: reports: Back Pain, Joint Pain, Muscle Pain Integumentary: reports: Flushing, Sweating Neuro: reports: Numbness, Seizure (x1 from withdrwal last month, first), Tingling, Tremors Endocrine: reports: Increased Thirst Hematology: reports: No Symptoms Reported Psychiatric: reports: Judgement Intact, Mood/Affect Appropiate, Orientated x3, Anxious, Depressed Other Systems: Reviewed and Negative Patient History - Patient Medical History Hx Anemia: No Hx Asthma: No Hx Chronic Obstructive Pulmonary Disease (COPD): No Hx Cancer: No Hx Cardiac Disorders: No Hx Congestive Heart Failure: No Hx Hypertension: No Hx Hypercholesterolemia: No Hx Pacemaker: No HX Cerebrovascular Accident: No Hx Seizures: Yes (drug related once in 06/2017) Hx Dementia: No Hx Diabetes: No Hx Gastrointestinal Disorders: Yes (acid reflux) Hx Liver Disease: No Hx Genitourinary Disorders: No Hx Sexually Transmitted Disorders: No Hx Renal Disease (ESRD): No Hx Thyroid Disease: No Hx Human Immunodeficiency Virus (HIV): No (Negative 2016) Hx Hepatitis C: No (Negative 2016) Hx Depression: Yes (no si at this time reported) Hx Suicide Attempt: No Hx Bipolar Disorder: No Hx Schizophrenia: No - Patient Surgical History Past Surgical History: Yes Hx Neurologic Surgery: No Hx Cataract Extraction: No Hx Cardiac Surgery: No Hx Lung Surgery: No Hx Breast Surgery: No Hx Breast Biopsy: No Hx Abdominal Surgery: No Hx Appendectomy: No Hx Cholecystectomy: No Hx Genitourinary Surgery: No Hx Section: No Hx Orthopedic Surgery: No Other Surgical History: right arm abscess surgery secondary to heroin use Anesthesia Reaction: No - PPD History Previous Implant?: Yes Documented Results: Negative w/proof Implanted On Prior R Admission?: Yes Date: 06/10/17 Results: 0 mm PPD to be Administered?: No - Reproductive History Patient is a Female of Child Bearing Age (11 -55 yrs old): No Patient : No - Smoking Cessation Smoking history: Current every day smoker Have you smoked in the past 12 months: Yes Aproximately how many cigarettes per day: 20 Hx Chewing Tobacco Use: No Initiated information on smoking cessation: Yes 'Breaking Loose' booklet given: 07/27/17 - Substance & Tx. History Hx Alcohol Use: Yes Hx Substance Use: Yes Substance Use Type: Cocaine, Heroin, Opiates, Prescribed, Tranquilizers Hx Substance Use Treatment: Yes (previous detox [facility]) - Substances Abused Heroin Route: Injection Frequency: Daily Amount used: 5 bags Age of first use: 37 Date of Last Use: 07/26/17 Crack Route: Smoking Frequency: 3-6 times per week Amount used: $20 Age of first use: 31 Date of Last Use: 07/26/17 Klonopi or Xanax Route: Oral Frequency: 3-6 times per week Amount used: 4-6 mg. Age of first use: 41 Date of Last Use: 07/26/17 Family Disease History - Family Disease History Family Disease History: Other: Father (Alcoholic) Admission Physical Exam [facility] - Vital Signs Vital Signs: Vital Signs - 24 hr 07/27/17 08:40 Temperature 97 F L Pulse Rate 77 Respiratory 18 Rate Blood Pressure 142/72 - Physical General Appearance: Yes: Nourished, Appropriately Dressed, Disheveled, Mild Distress, Tremorous, Irritable, Sweating, Anxious HEENTM: Yes: EOMI, Hearing grossly Normal, Normocephalic, Normal Voice, ALEXANDRA, Pharynx Normal Respiratory: Yes: Within Normal Limits, Chest Non-Tender, Lungs Clear, Normal Breath Sounds, No Respiratory Distress, No Accessory Muscle Use Neck: Yes: Within Normal Limits, No masses,lesions,Nodules, Supple, Trachea in good position Breast: Yes: Breast Exam Deferred Cardiology: Yes: Within Normal Limits, Regular Rhythm, Regular Rate, S1, S2 Abdominal: Yes: Within Normal Limits, Normal Bowel Sounds, Non Tender, Soft, Increased Bowel Sounds, Protuberent, Distended Genitourinary: Yes: Within Normal Limits Back: Yes: Muscle Spasm Musculoskeletal: Yes: full range of Motion, Gait Steady, Pelvis Stable, Back pain, Muscle Pain Extremities: Yes: Normal Capillary Refill, Normal Range of Motion, Non-Tender, Tremors Neurological: Yes: cone baker machine II-XII NML intact, Fully Oriented, Alert, Motor Strength 5/5, Normal Response, Depressed Affect Integumentary: Yes: Normal Color, Warm, Diaphoresis, Moist, Track Poon (no infection noted), Other (scar from previous abscess left arm) Lymphatic: Yes: Within Normal Limits - Addiitonal Findings: withdrawal sx - Diagnostic (1) Opioid dependence with withdrawal Current Visit: No Status: Acute (2) CONCEPCION (generalized anxiety disorder) Current Visit: No Status: Chronic Comment: Self reports. Will order vistaril for anxiety. (3) GERD (gastroesophageal reflux disease) Current Visit: No Status: Chronic (4) MDD (major depressive disorder) Current Visit: No Status: Chronic Comment: Self reports. Will order trazodone (5) Seizures Current Visit: No Status: Chronic (6) ADHD Current Visit: No Status: Suspected Qualifiers: Attention deficit-hyperactivity disorder type: unspecified Qualified Code(s ): F90.9 - Attention-deficit hyperactivity disorder, unspecified type Comment: Self reports. (7) Cocaine dependence Current Visit: Yes Status: Acute (8) Sedative, hypnotic or anxiolytic dependence with withdrawal, uncomplicated Current Visit: Yes Status: Acute (9) Dehydration Current Visit: Yes Status: Acute Cleared for Admission S - Detox or Rehab [facility] Level of Care: Medically Managed Detox Regimen/Protocol: Methadone/Valium [facility] Breath Alcohol Content Breath Alcohol Content: 0 Urine Drug Screen - Results Drug Screen Negative: No Urine Drug Screen Results: JULIAN-Cocaine, OPI-Opiates
[2017-07-27] MEDS ORDERED: NICOTINE POLACRILEX 2 MG GUM BUC PRN (10:29)
[2017-07-27] MEDS ORDERED: diazePAM 5 MG TABLET PO ONE (11:05)
[2017-07-27] MEDS ORDERED: METHADONE HCL 10 MG TABLET (FOR DETOX USE ONLY) PO ONE ×2 (11:05→23:00)
[2017-07-27] MEDS: NICOTINE 14 MG/24 HOURS TOPICAL PATCH TD SCH (11:48)
[2017-07-27] MEDS: IBUPROFEN 400 MG TABLET (FP) PO PRN ×2 (12:18→17:47)
--- NOTE | 2017-07-27 12:47 | CONSULT ---
[facility] Psychiatric Consult - Data Date of interview: 07/27/17 Admission source: [facility] Identifying data: Readmission to [facility] for this 42 y/o male seeking detox treatment on for heroin,cocaine (crack) and benzodiazepine dependence.Patient is single without chidren,domiciled, unemployed and supported by relatives. Substance Abuse History: Discussed with the patient.Mr Berman endorses a 10+ year history of substabce abuse as detailled in the current [facility] report drawn on admission : Smoking history: Current every day smoker. Have you smoked in the past 12 months: Yes. Aproximately how many cigarettes per day: 20. Hx Chewing Tobacco Use: No. Initiated information on smoking cessation: Yes. 'Breaking Loose' booklet given: 07/27/17. - Substance & Tx. History. Hx Alcohol Use: Yes. Hx Substance Use: Yes. Substance Use Type: Cocaine, Heroin, Opiates, Prescribed, Tranquilizers. Hx Substance Use Treatment: Yes (previous detox [facility]). - Substances Abused. Heroin. Route: Injection. Frequency: Daily. Amount used: 5 bags. Age of first use: 37. Date of Last Use: 07/26/17. Crack. Route: Smoking. Frequency: 3-6 times per week. Amount used: $20. Age of first use: 31. Date of Last Use: 07/26/17. Klonopi or Xanax. Route: Oral. Frequency: 3-6 times per week. Amount used: 4-6 mg. Age of first use: 41. Date of Last Use: 07/26/17 Medical History: GERD,withdrawal-related seizures,hypertension and emphysema. Psychiatric History: Onset of psychiatric disturbances : age 11. Diagnosed with ADHD,MDD and Anxiety Disorder.Patient admits to a remote history of one psychiatric hospitalization, " 30 years ago ", for behavioral issues.Questionable historian in view of his approximate answers and variable self-reports to different clinicians (admitted to several hospitalizations to another desktop support consultant seen last month here at [facility]).No current affiliation with psychiatric OPD care providers.Mr Berman indicates that he last saw a psychiatrist, four months ago, at the [facility].Medicated with trazodone 100 mg/hs + vistaril 50 mg/hs.Last taken a month ago,as per self- report.Patient denies history of suicide attempts. Physical/Sexual Abuse/Trauma History: Patient denies. Additional Comment: Urine Drug Screen Results: JULIAN-Cocaine, OPI-Opiates.Noted. Mental Status Exam - Mental Status Exam Alert and Oriented to: Time, Place, Person Cognitive Function: Good Patient Appearance: Unkempt, Disheveled Mood: Nervous, Anxious Affect: Mood Congruent Patient Behavior: Fatigued, Cooperative (medication-seeking) Speech Pattern: Clear Voice Loudness: Normal Thought Process: Intact, Goal Oriented Thought Disorder: Not Present Hallucinations: Denies Suicidal Ideation: Denies Homicidal Ideation: Denies Insight/Judgement: Poor Sleep: Poorly, Difficulty falling asleep Appetite: Good Muscle strength/Tone: Normal Gait/Station: Normal Psychiatric Findings - Problem List ([place] 1, 2,3) (1) Opioid dependence with withdrawal Current Visit: Yes Status: Acute (2) Sedative, hypnotic or anxiolytic dependence with withdrawal, uncomplicated Current Visit: Yes Status: Acute (3) Cocaine dependence Current Visit: Yes Status: Acute (4) Nicotine dependence Current Visit: Yes Status: Acute (5) Substance induced mood disorder Current Visit: Yes Status: Acute (6) Insomnia Current Visit: Yes Status: Acute - Initial Treatment Plan Initial Treatment Plan: Records reviewed.Sleep hygiene.psychoeducation.Detoxification in progress.Trazodone 50 mg po hs.Ordered.Patient is made aware of risk of priapism." I never experienced that problem and I have used that medication for months." Consent (verbal) given.Observation.
[2017-07-27] MEDS: diazePAM 5 MG TABLET PO SCH ×2 (13:57→22:16)
[2017-07-27] MEDS: ACETAMINOPHEN 325 MG TABLET (FP) PO PRN ×2 (14:54→18:55)
[2017-07-27] MEDS: hydrOXYzine PAMOATE 50 MG CAPSULE (FP) PO PRN ×2 (15:51→19:59)
[2017-07-27 16:19] LABS: URINE APPEARANCE CLEAR; URINE BILIRUBIN NEGATIVE (<2.0 mg/dL); URINE BLOOD NEGATIVE (NEGATIVE); URINE COLOR YELLOW; URINE GLUCOSE (UA) NEGATIVE (NEGATIVE); URINE KETONE NEGATIVE (NEGATIVE); URINE LEUK ESTERASE NEGATIVE (NEGATIVE); URINE NITRITE NEGATIVE (NEGATIVE); URINE PROTEIN NEGATIVE (NEGATIVE); URINE UROBILINOGEN NEGATIVE mg/dL (0.2-1.0)
--- NOTE | 2017-07-27 16:44 | EKG ---
Test Reason : Blood Pressure : / mmHG Vent. Rate : 068 BPM Atrial Rate : 068 BPM P-R Int : 162 ms QRS Dur : 082 ms QT Int : 400 ms P-R-T Axes : 063 035 022 degrees QTc Int : 425 ms NORMAL SINUS RHYTHM WITH SINUS ARRHYTHMIA NONSPECIFIC T WAVE ABNORMALITY ABNORMAL ECG WHEN COMPARED WITH ECG OF 08-JUN-2017 06:41, NONSPECIFIC T WAVE ABNORMALITY NOW EVIDENT IN INFERIOR LEADS Confirmed by MD Any, Geovanny ([id number]) on 07/27/2017 4:43:39 PM Referred By: Confirmed By:Geovanny Agarwal MD
[2017-07-27] MEDS: diazePAM 5 MG TABLET PO PRN (17:47)
[2017-07-27] MEDS ORDERED: traZODone HCL 50 MG TABLET (FP) PO SCH (22:00)
[2017-07-27] MEDS: THIAMINE HCL 100 MG TABLET (FP) PO SCH (22:16)
[2017-07-27] MEDS: MELATONIN 5 MG TABLETS PO PRN (22:17)
[2017-07-28] MEDS: diazePAM 5 MG TABLET PO PRN ×4 (00:32→20:52)
[2017-07-28] MEDS: IBUPROFEN 400 MG TABLET (FP) PO PRN ×3 (00:33→20:52)
[2017-07-28] MEDS: hydrOXYzine PAMOATE 50 MG CAPSULE (FP) PO PRN ×2 (00:33→10:27)
[2017-07-28] MEDS: diazePAM 5 MG TABLET PO SCH ×3 (05:38→22:29)
[2017-07-28] MEDS ORDERED: METHADONE HCL 10 MG TABLET (FOR DETOX USE ONLY) PO SCH (10:00)
[2017-07-28] MEDS: PRENATAL VITAMINS W/ FOLIC ACID TABLET (FP) PO SCH (10:26)
[2017-07-28] MEDS: NICOTINE 14 MG/24 HOURS TOPICAL PATCH TD SCH (10:26)
[2017-07-28 10:28] LABS: CHLORIDE 106 mmol/L (98-107); POTASSIUM 4.1 mmol/L (3.5-5.1); SODIUM 139 mmol/L (136-145)
[2017-07-28 10:35] LABS: HEMATOCRIT 44.3 % (35.4-49); HEMOGLOBIN 14.8 GM/dL (11.7-16.9); MCHC 33.4 g/dl (32.0-35.9); MEAN CELL VOLUME 86.8 fl (80-96); MEAN PLT VOLUME 9.1 fl (7.5-11.1); PLATELET COUNT 212 K/MM3 (134-434); RDW 13.4 % (11.9-15.9); WHITE BLOOD COUNT 6.9 K/mm3 (4.0-10.0)
[2017-07-28 10:47] LABS: ALK PHOS 170 U/L (45-117); ANION GAP 11 (8-16); BILIRUBIN,TOTAL 0.3 mg/dL (0.2-1.0); BLOOD UREA NITROGEN 18 mg/dL (7-18); CALCIUM 9.3 mg/dL (8.5-10.1); CO2 22 mmol/L (21-32); CREATININE 1.3 mg/dL (0.7-1.3); GLUCOSE,RANDOM 87 mg/dL (74-106); SGOT/AST 23 U/L (15-37); SGPT/ALT 21 U/L (12-78); TOT PROT 7.9 g/dl (6.4-8.2)
--- NOTE | 2017-07-28 11:12 | PN ---
BHS COWS - Scale Resting Pulse: 0= [place] 80 or Below Sweatin= Chills/Flushing Restless Observation: 3= Extraneous Movement Pupil Size: 2= Moderately Dilated Bone or Joint Aches: 4=Acute Joint/Muscle Pain Runny Nose/ Eye Tearin= Nasal Congestion GI Upset > 30mins: 1= Stomach Cramp Tremor Observation of Outstretched Hands: 1= Tremor [place], Not Seen Yawning Observation: 1= 1-2x During Session Anxiety or Irritability: 2=Irritable/Anxious Goose Flesh Skin: 0=Smooth Skin COWS Score: 16 BHS Progress Note (SOAP) Subjective: ANXIETY,IRRITABILITY,RESTLESSNESS,MUSCLE ACHE/SPASMS,INSOMNIA. Objective: 07/28/17 11:10 Vital Signs Temperature 97.7 F 07/28/17 09:23 Pulse Rate 69 07/28/17 09:23 Respiratory Rate 18 07/28/17 09:23 Blood Pressure 133/85 07/28/17 09:23 O2 Sat by Pulse Oximetry (%) Laboratory Last Values WBC 6.9 K/mm3 (4.0-10.0) D 07/28/17 05:45 RBC 5.10 M/mm3 (4.00-5.60) 07/28/17 05:45 Hgb 14.8 GM/dL (11.7-16.9) 07/28/17 05:45 Hct 44.3 % (35.4-49) 07/28/17 05:45 MCV 86.8 fl (80-96) 07/28/17 05:45 MCH 29.0 pg (25.7-33.7) 07/28/17 05:45 MCHC 33.4 g/dl (32.0-35.9) 07/28/17 05:45 RDW 13.4 % (11.9-15.9) 07/28/17 05:45 Plt Count 212 K/MM3 (134-434) 07/28/17 05:45 MPV 9.1 fl (7.5-11.1) 07/28/17 05:45 Sodium 139 mmol/L (136-145) 07/28/17 05:45 Potassium 4.1 mmol/L (3.5-5.1) 07/28/17 05:45 Chloride 106 mmol/L (98-107) 07/28/17 05:45 Carbon Dioxide 22 mmol/L (21-32) 07/28/17 05:45 Anion Gap 11 (8-16) 07/28/17 05:45 BUN 18 mg/dL (7-18) D 07/28/17 05:45 Creatinine 1.3 mg/dL (0.7-1.3) 07/28/17 05:45 Creat Clearance w eGFR > 60 (>60) 07/28/17 05:45 Random Glucose 87 mg/dL (74-106) 07/28/17 05:45 Calcium 9.3 mg/dL (8.5-10.1) 07/28/17 05:45 Total Bilirubin 0.3 mg/dL (0.2-1.0) D 07/28/17 05:45 AST 23 U/L (15-37) 07/28/17 05:45 ALT 21 U/L (12-78) 07/28/17 05:45 Alkaline Phosphatase 170 U/L (45-117) H 07/28/17 05:45 Total Protein 7.9 g/dl (6.4-8.2) 07/28/17 05:45 Albumin 4.0 g/dl (3.4-5.0) 07/28/17 05:45 Urine Color Yellow 07/27/17 11:40 Urine Appearance Clear 07/27/17 11:40 Urine pH 6.0 (5.0-8.0) 07/27/17 11:40 Ur Specific [place] 1.026 (1.001-1.035) 07/27/17 11:40 Urine Protein Negative (NEGATIVE) 07/27/17 11:40 Urine Glucose (UA) Negative (NEGATIVE) 07/27/17 11:40 Urine Ketones Negative (NEGATIVE) 07/27/17 11:40 Urine Blood Negative (NEGATIVE) 07/27/17 11:40 Urine Nitrite Negative (NEGATIVE) 07/27/17 11:40 Urine Bilirubin Negative (<2.0 mg/dL) 07/27/17 11:40 Urine Urobilinogen Negative mg/dL (0.2-1.0) 07/27/17 11:40 Ur Leukocyte Esterase Negative (NEGATIVE) 07/27/17 11:40 HIV 1&2 Antibody Screen Negative 07/27/17 11:40 HIV P24 Antigen Negative 07/27/17 11:40 RPR PENDING Assessment: 07/28/17 11:10 WITHDRAWAL SX Plan: CONTINUE DETOX FLEXERIL DIRECTED FOR MUSCLE ACHE/SPASMS
[2017-07-28] MEDS: CYCLOBENZAPRINE HCL 10 MG TABLET (FP) PO SCH ×2 (13:07→22:29)
[2017-07-28] MEDS: LOPERAMIDE HCL 2 MG CAPSULE PO PRN ×2 (14:05→20:52)
[2017-07-28] MEDS: traZODone HCL 100 MG TABLET (FP) PO SCH (22:29)
[2017-07-28] MEDS: THIAMINE HCL 100 MG TABLET (FP) PO SCH (22:29)
[2017-07-29] MEDS: hydrOXYzine PAMOATE 50 MG CAPSULE (FP) PO PRN ×4 (00:02→22:32)
[2017-07-29] MEDS: diazePAM 5 MG TABLET PO PRN ×3 (05:40→17:16)
[2017-07-29] MEDS: CYCLOBENZAPRINE HCL 10 MG TABLET (FP) PO SCH ×3 (05:40→22:31)
[2017-07-29] MEDS: IBUPROFEN 400 MG TABLET (FP) PO PRN (08:42)
[2017-07-29] MEDS: NICOTINE 14 MG/24 HOURS TOPICAL PATCH TD SCH (10:16)
[2017-07-29] MEDS: PRENATAL VITAMINS W/ FOLIC ACID TABLET (FP) PO SCH (10:16)
[2017-07-29] MEDS: diazePAM 5 MG TABLET PO SCH ×2 (10:16→22:31)
[2017-07-29] MEDS: METHADONE HCL 5 MG TABLET (FOR DETOX USE ONLY) PO SCH (10:16)
[2017-07-29] MEDS: LIDOCAINE 5% TOPICAL PATCH TP SCH (10:17)
[2017-07-29] MEDS: NAPROXEN 500 MG TABLET (FP) PO SCH ×2 (10:17→22:30)
--- NOTE | 2017-07-29 11:08 | PN ---
S COWS - Scale Resting Pulse: 0= [place] 80 or Below Sweatin= Chills/Flushing Restless Observation: 3= Extraneous Movement Pupil Size: 2= Moderately Dilated Bone or Joint Aches: 4=Acute Joint/Muscle Pain Runny Nose/ Eye Tearin= None GI Upset > 30mins: 0= None Tremor Observation of Outstretched Hands: 1= Tremor [place], Not Seen Yawning Observation: 1= 1-2x During Session Anxiety or Irritability: 2=Irritable/Anxious Goose Flesh Skin: 0=Smooth Skin COWS Score: 14 BHS Progress Note (SOAP) Subjective: PT C/O BACKPAIN AND LOWER EXTREMETIES PAIN/SPASMS. VERY ANXIOUS AND OOB AROUND THE UNIT. Objective: 07/29/17 11:07 Vital Signs Temperature 97 F L 07/29/17 09:37 Pulse Rate 71 07/29/17 09:37 Respiratory Rate 18 07/29/17 09:37 Blood Pressure 126/78 07/29/17 09:37 O2 Sat by Pulse Oximetry (%) Laboratory Last Values WBC 6.9 K/mm3 (4.0-10.0) D 07/28/17 05:45 RBC 5.10 M/mm3 (4.00-5.60) 07/28/17 05:45 Hgb 14.8 GM/dL (11.7-16.9) 07/28/17 05:45 Hct 44.3 % (35.4-49) 07/28/17 05:45 MCV 86.8 fl (80-96) 07/28/17 05:45 MCH 29.0 pg (25.7-33.7) 07/28/17 05:45 MCHC 33.4 g/dl (32.0-35.9) 07/28/17 05:45 RDW 13.4 % (11.9-15.9) 07/28/17 05:45 Plt Count 212 K/MM3 (134-434) 07/28/17 05:45 MPV 9.1 fl (7.5-11.1) 07/28/17 05:45 Sodium 139 mmol/L (136-145) 07/28/17 05:45 Potassium 4.1 mmol/L (3.5-5.1) 07/28/17 05:45 Chloride 106 mmol/L (98-107) 07/28/17 05:45 Carbon Dioxide 22 mmol/L (21-32) 07/28/17 05:45 Anion Gap 11 (8-16) 07/28/17 05:45 BUN 18 mg/dL (7-18) D 07/28/17 05:45 Creatinine 1.3 mg/dL (0.7-1.3) 07/28/17 05:45 Creat Clearance w eGFR > 60 (>60) 07/28/17 05:45 Random Glucose 87 mg/dL (74-106) 07/28/17 05:45 Calcium 9.3 mg/dL (8.5-10.1) 07/28/17 05:45 Total Bilirubin 0.3 mg/dL (0.2-1.0) D 07/28/17 05:45 AST 23 U/L (15-37) 07/28/17 05:45 ALT 21 U/L (12-78) 07/28/17 05:45 Alkaline Phosphatase 170 U/L (45-117) H 07/28/17 05:45 Total Protein 7.9 g/dl (6.4-8.2) 07/28/17 05:45 Albumin 4.0 g/dl (3.4-5.0) 07/28/17 05:45 Urine Color Yellow 07/27/17 11:40 Urine Appearance Clear 07/27/17 11:40 Urine pH 6.0 (5.0-8.0) 07/27/17 11:40 Ur Specific [place] 1.026 (1.001-1.035) 07/27/17 11:40 Urine Protein Negative (NEGATIVE) 07/27/17 11:40 Urine Glucose (UA) Negative (NEGATIVE) 07/27/17 11:40 Urine Ketones Negative (NEGATIVE) 07/27/17 11:40 Urine Blood Negative (NEGATIVE) 07/27/17 11:40 Urine Nitrite Negative (NEGATIVE) 07/27/17 11:40 Urine Bilirubin Negative (<2.0 mg/dL) 07/27/17 11:40 Urine Urobilinogen Negative mg/dL (0.2-1.0) 07/27/17 11:40 Ur Leukocyte Esterase Negative (NEGATIVE) 07/27/17 11:40 RPR Titer Nonreactive (NONREACTIVE) 07/28/17 05:45 HIV 1&2 Antibody Screen Negative 07/27/17 11:40 HIV P24 Antigen Negative 07/27/17 11:40 Assessment: 07/29/17 11:07 WITHDRAWAL SX Plan: CONTINUE DETOX NAPROSYN A500 MG PO BID D/C IBUPROFEN LIDOCAINE PATCH 5% TD DAILY
--- NOTE | 2017-07-29 11:18 | PN ---
BHS CIWA - CIWA Score Nausea/Vomitin Muscle Tremors: 3 Anxiety: 3 Agitation: 3 Paroxysmal Sweats: 3 Orientation: 0-Oriented Tacttile Disturbances: 0-None Auditory Disturbances: 0-None Visual Disturbances: 0-None Headache: 0-None Present CIWA-Ar Total Score: 15
[2017-07-29] MEDS: ACETAMINOPHEN 325 MG TABLET (FP) PO PRN (14:17)
[2017-07-29] MEDS: THIAMINE HCL 100 MG TABLET (FP) PO SCH (22:30)
[2017-07-29] MEDS: traZODone HCL 100 MG TABLET (FP) PO SCH (22:30)
[2017-07-29] MEDS: LIDOCAINE PATCH REMOVAL MC SCH (23:02)
[2017-07-30] MEDS: diazePAM 5 MG TABLET PO PRN ×2 (01:39→05:50)
[2017-07-30] MEDS: CYCLOBENZAPRINE HCL 10 MG TABLET (FP) PO SCH ×3 (05:50→22:11)
[2017-07-30] MEDS: hydrOXYzine PAMOATE 50 MG CAPSULE (FP) PO PRN ×3 (08:56→22:12)
[2017-07-30] MEDS: NICOTINE 14 MG/24 HOURS TOPICAL PATCH TD SCH (10:23)
[2017-07-30] MEDS: diazePAM 5 MG TABLET PO SCH ×2 (10:23→22:12)
[2017-07-30] MEDS: PRENATAL VITAMINS W/ FOLIC ACID TABLET (FP) PO SCH (10:23)
[2017-07-30] MEDS: LIDOCAINE 5% TOPICAL PATCH TP SCH (10:23)
[2017-07-30] MEDS: NAPROXEN 500 MG TABLET (FP) PO SCH ×2 (10:23→22:11)
[2017-07-30] MEDS: METHADONE HCL 5 MG TABLET (FOR DETOX USE ONLY) PO SCH (10:23)
--- NOTE | 2017-07-30 11:38 | PN ---
BHS Progress Note (SOAP) Subjective: ANXIETY,IRRITABILITY,RESTLESSNESS,SWEATS,INTERMITTENT SLEEP. Objective: 07/30/17 11:37 Vital Signs Temperature 97.2 F L 07/30/17 09:16 Pulse Rate 80 07/30/17 09:16 Respiratory Rate 16 07/30/17 09:16 Blood Pressure 121/77 07/30/17 09:16 O2 Sat by Pulse Oximetry (%) Laboratory Last Values WBC 6.9 K/mm3 (4.0-10.0) D 07/28/17 05:45 RBC 5.10 M/mm3 (4.00-5.60) 07/28/17 05:45 Hgb 14.8 GM/dL (11.7-16.9) 07/28/17 05:45 Hct 44.3 % (35.4-49) 07/28/17 05:45 MCV 86.8 fl (80-96) 07/28/17 05:45 MCH 29.0 pg (25.7-33.7) 07/28/17 05:45 MCHC 33.4 g/dl (32.0-35.9) 07/28/17 05:45 RDW 13.4 % (11.9-15.9) 07/28/17 05:45 Plt Count 212 K/MM3 (134-434) 07/28/17 05:45 MPV 9.1 fl (7.5-11.1) 07/28/17 05:45 Sodium 139 mmol/L (136-145) 07/28/17 05:45 Potassium 4.1 mmol/L (3.5-5.1) 07/28/17 05:45 Chloride 106 mmol/L (98-107) 07/28/17 05:45 Carbon Dioxide 22 mmol/L (21-32) 07/28/17 05:45 Anion Gap 11 (8-16) 07/28/17 05:45 BUN 18 mg/dL (7-18) D 07/28/17 05:45 Creatinine 1.3 mg/dL (0.7-1.3) 07/28/17 05:45 Creat Clearance w eGFR > 60 (>60) 07/28/17 05:45 Random Glucose 87 mg/dL (74-106) 07/28/17 05:45 Calcium 9.3 mg/dL (8.5-10.1) 07/28/17 05:45 Total Bilirubin 0.3 mg/dL (0.2-1.0) D 07/28/17 05:45 AST 23 U/L (15-37) 07/28/17 05:45 ALT 21 U/L (12-78) 07/28/17 05:45 Alkaline Phosphatase 170 U/L (45-117) H 07/28/17 05:45 Total Protein 7.9 g/dl (6.4-8.2) 07/28/17 05:45 Albumin 4.0 g/dl (3.4-5.0) 07/28/17 05:45 Urine Color Yellow 07/27/17 11:40 Urine Appearance Clear 07/27/17 11:40 Urine pH 6.0 (5.0-8.0) 07/27/17 11:40 Ur Specific [place] 1.026 (1.001-1.035) 07/27/17 11:40 Urine Protein Negative (NEGATIVE) 07/27/17 11:40 Urine Glucose (UA) Negative (NEGATIVE) 07/27/17 11:40 Urine Ketones Negative (NEGATIVE) 07/27/17 11:40 Urine Blood Negative (NEGATIVE) 07/27/17 11:40 Urine Nitrite Negative (NEGATIVE) 07/27/17 11:40 Urine Bilirubin Negative (<2.0 mg/dL) 07/27/17 11:40 Urine Urobilinogen Negative mg/dL (0.2-1.0) 07/27/17 11:40 Ur Leukocyte Esterase Negative (NEGATIVE) 07/27/17 11:40 RPR Titer Nonreactive (NONREACTIVE) 07/28/17 05:45 HIV 1&2 Antibody Screen Negative 07/27/17 11:40 HIV P24 Antigen Negative 07/27/17 11:40 Assessment: 07/30/17 11:37 WITHDRAWAL SX Plan: CONTINUE DETOX
[2017-07-30] MEDS: traZODone HCL 100 MG TABLET (FP) PO SCH (22:11)
[2017-07-30] MEDS: LIDOCAINE PATCH REMOVAL MC SCH (22:12)
[2017-07-30] MEDS: THIAMINE HCL 100 MG TABLET (FP) PO SCH (22:13)
[2017-07-31] MEDS: hydrOXYzine PAMOATE 50 MG CAPSULE (FP) PO PRN ×3 (05:47→22:09)
[2017-07-31] MEDS: CYCLOBENZAPRINE HCL 10 MG TABLET (FP) PO SCH ×3 (05:47→22:08)
[2017-07-31] MEDS: NAPROXEN 500 MG TABLET (FP) PO SCH ×2 (09:57→22:08)
[2017-07-31] MEDS: PRENATAL VITAMINS W/ FOLIC ACID TABLET (FP) PO SCH (09:57)
[2017-07-31] MEDS ORDERED: diazePAM 5 MG TABLET PO SCH (10:00)
[2017-07-31] MEDS ORDERED: METHADONE HCL 10 MG TABLET (FOR DETOX USE ONLY) PO SCH (10:00)
[2017-07-31] MEDS: LIDOCAINE 5% TOPICAL PATCH TP SCH (10:06)
[2017-07-31] MEDS: NICOTINE 14 MG/24 HOURS TOPICAL PATCH TD SCH (10:06)
[2017-07-31] MEDS ORDERED: LIDOCAINE 5% TOPICAL PATCH TP SCH ×2 (13:00)
--- NOTE | 2017-07-31 15:26 | PN ---
BHS Progress Note (SOAP) Subjective: Anxious, Interrupted Sleep, Body Aches. Objective: PATIENT A & O X 3, OBSERVED AMBULATING ON UNIT. NO ACUTE DISTRESS. 07/31/17 15:24 Vital Signs Temperature 96.4 F L 07/31/17 14:24 Pulse Rate 89 07/31/17 14:24 Respiratory Rate 20 07/31/17 14:24 Blood Pressure 119/74 07/31/17 14:24 O2 Sat by Pulse Oximetry (%) Laboratory Tests 07/27/17 07/27/17 07/28/17 11:40 11:40 05:45 WBC 6.9 D RBC 5.10 Hgb 14.8 Hct 44.3 MCV 86.8 MCH 29.0 MCHC 33.4 RDW 13.4 Plt Count 212 MPV 9.1 Sodium Potassium Chloride Carbon Dioxide Anion Gap BUN Creatinine Creat Clearance w eGFR Random Glucose Calcium Total Bilirubin AST ALT Alkaline Phosphatase Total Protein Albumin Urine Color Yellow Urine Appearance Clear Urine pH 6.0 Ur Specific [place] 1.026 Urine Protein Negative Urine Glucose (UA) Negative Urine Ketones Negative Urine Blood Negative Urine Nitrite Negative Urine Bilirubin Negative Urine Urobilinogen Negative Ur Leukocyte Esterase Negative RPR Titer HIV 1&2 Antibody Screen Negative HIV P24 Antigen Negative 07/28/17 07/28/17 05:45 05:45 WBC RBC Hgb Hct MCV MCH MCHC RDW Plt Count MPV Sodium 139 Potassium 4.1 Chloride 106 Carbon Dioxide 22 Anion Gap 11 BUN 18 D Creatinine 1.3 Creat Clearance w eGFR > 60 Random Glucose 87 Calcium 9.3 Total Bilirubin 0.3 D AST 23 ALT 21 Alkaline Phosphatase 170 H Total Protein 7.9 Albumin 4.0 Urine Color Urine Appearance Urine pH Ur Specific [place] Urine Protein Urine Glucose (UA) Urine Ketones Urine Blood Urine Nitrite Urine Bilirubin Urine Urobilinogen Ur Leukocyte Esterase RPR Titer Nonreactive HIV 1&2 Antibody Screen HIV P24 Antigen LABS NOTED. Assessment: 07/31/17 15:24 WITHDRAWAL SYMPTOMS. Plan: CONTINUE DETOX. DUE TO PRESENCE / SEVERITY OF LINGERING DETOX SYMPTOMS, PATIENT PERMITTED TO REMAIN ON DETOX UNIT UNTIL 08/02/2017, AT WHICH TIME HE WILL BE DISCHARGED SO THAT HE MAY GO TO [facility] FOR AFTERCARE.
[2017-07-31] MEDS ORDERED: LIDOCAINE PATCH REMOVAL MC SCH ×2 (22:00)
[2017-07-31] MEDS: MELATONIN 5 MG TABLETS PO PRN (22:07)
[2017-07-31] MEDS: THIAMINE HCL 100 MG TABLET (FP) PO SCH (22:08)
[2017-07-31] MEDS: traZODone HCL 100 MG TABLET (FP) PO SCH (22:08)
[2017-07-31] MEDS: LIDOCAINE PATCH REMOVAL MC SCH (22:38)
[2017-08-01] MEDS: LIDOCAINE PATCH REMOVAL MC SCH (00:01)
[2017-08-01] MEDS: CYCLOBENZAPRINE HCL 10 MG TABLET (FP) PO SCH ×3 (05:46→21:57)
[2017-08-01] MEDS: hydrOXYzine PAMOATE 50 MG CAPSULE (FP) PO PRN ×4 (05:46→21:57)
[2017-08-01] MEDS ORDERED: METHADONE HCL 5 MG TABLET (FOR DETOX USE ONLY) PO SCH (06:00)
[2017-08-01] MEDS ORDERED: LIDOCAINE 5% TOPICAL PATCH TP SCH (10:00)
[2017-08-01] MEDS: NAPROXEN 500 MG TABLET (FP) PO SCH ×2 (10:04→21:57)
[2017-08-01] MEDS: PRENATAL VITAMINS W/ FOLIC ACID TABLET (FP) PO SCH (10:04)
[2017-08-01] MEDS: NICOTINE 14 MG/24 HOURS TOPICAL PATCH TD SCH (10:05)
--- NOTE | 2017-08-01 11:52 | PN ---
S Progress Note (SOAP) Subjective: achy knees Objective: 08/01/17 11:51 Vital Signs Temperature 96.7 F L 08/01/17 11:03 Pulse Rate 90 08/01/17 11:03 Respiratory Rate 20 08/01/17 11:03 Blood Pressure 140/86 08/01/17 11:03 O2 Sat by Pulse Oximetry (%) aaox3 ambulating no acute distress Assessment: 08/01/17 11:51 feeling good minimal withdrawals Plan: d/c in am lidocaine patches for both knees only
[2017-08-01] MEDS: traZODone HCL 100 MG TABLET (FP) PO SCH (21:57)
[2017-08-01] MEDS: THIAMINE HCL 100 MG TABLET (FP) PO SCH (21:57)
[2017-08-01] MEDS ORDERED: LIDOCAINE PATCH REMOVAL MC SCH (22:00)
[2017-08-02] MEDS: hydrOXYzine PAMOATE 50 MG CAPSULE (FP) PO PRN ×2 (02:17→07:06)
[2017-08-02] MEDS: CYCLOBENZAPRINE HCL 10 MG TABLET (FP) PO SCH (05:47)
[2017-08-02 06:19] VITALS: BP 119/75; PULSE 66; TEMP 97
--- NOTE | 2017-08-02 16:59 | PN ---
S Progress Note (SOAP) Subjective: Patient denies any current detox symptoms and reports that he is feeling well overall. Objective: PATIENT A & O X 3, OBSERVED AMBULATING ON UNIT. NO ACUTE DISTRESS. 08/02/17 16:57 Vital Signs Temperature 97.0 F L 08/02/17 06:19 Pulse Rate 66 08/02/17 06:19 Respiratory Rate 18 08/02/17 06:19 Blood Pressure 119/75 08/02/17 06:19 O2 Sat by Pulse Oximetry (%) Laboratory Tests 07/27/17 07/27/17 07/28/17 11:40 11:40 05:45 WBC 6.9 D RBC 5.10 Hgb 14.8 Hct 44.3 MCV 86.8 MCH 29.0 MCHC 33.4 RDW 13.4 Plt Count 212 MPV 9.1 Sodium Potassium Chloride Carbon Dioxide Anion Gap BUN Creatinine Creat Clearance w eGFR Random Glucose Calcium Total Bilirubin AST ALT Alkaline Phosphatase Total Protein Albumin Urine Color Yellow Urine Appearance Clear Urine pH 6.0 Ur Specific [place] 1.026 Urine Protein Negative Urine Glucose (UA) Negative Urine Ketones Negative Urine Blood Negative Urine Nitrite Negative Urine Bilirubin Negative Urine Urobilinogen Negative Ur Leukocyte Esterase Negative RPR Titer HIV 1&2 Antibody Screen Negative HIV P24 Antigen Negative 07/28/17 07/28/17 05:45 05:45 WBC RBC Hgb Hct MCV MCH MCHC RDW Plt Count MPV Sodium 139 Potassium 4.1 Chloride 106 Carbon Dioxide 22 Anion Gap 11 BUN 18 D Creatinine 1.3 Creat Clearance w eGFR > 60 Random Glucose 87 Calcium 9.3 Total Bilirubin 0.3 D AST 23 ALT 21 Alkaline Phosphatase 170 H Total Protein 7.9 Albumin 4.0 Urine Color Urine Appearance Urine pH Ur Specific [place] Urine Protein Urine Glucose (UA) Urine Ketones Urine Blood Urine Nitrite Urine Bilirubin Urine Urobilinogen Ur Leukocyte Esterase RPR Titer Nonreactive HIV 1&2 Antibody Screen HIV P24 Antigen LABS NOTED. Assessment: 08/02/17 16:58 COMPLETION OF DETOX REGIMEN. Plan: PATIENT SCHEDULED FOR DISCHARGE FROM DETOX TODAY. PATIENT SCHEDULED TO GO TO [facility] MMTP PROGRAM AND [facility] OUTPATIENT SUBSTANCE USE TREATMENT PROGRAM FOR AFTERCARE.
--- NOTE | 2017-08-02 17:02 | DS ---
[facility] Detox Discharge Summary Admission Date: 07/27/17 Discharge Date: 08/02/17 - History Present History: Cocaine Dependence, Opioid Dependence, Sedative Dependence Additional Comments: PATIENT SCHEDULED TO GO TO [facility] MMTP PROGRAM (Sarah JONES) AND [facility] OUTPATIENT SUBSTANCE USE TREATMENT PROGRAM (Frank JONES.) FOR AFTERCARE. PATIENT LEFT DETOX UNIT IN STABLE MEDICAL CONDITION. Pertinent Past History: Generalized Anxiety Disorder, Major Depressive disorder, Nicotine Dependence, GERD, Insomnia, Dehydration, ADHD. - Physical Exam Results Vital Signs: Vital Signs Temperature 97.0 F L 08/02/17 06:19 Pulse Rate 66 08/02/17 06:19 Respiratory Rate 18 08/02/17 06:19 Blood Pressure 119/75 08/02/17 06:19 O2 Sat by Pulse Oximetry (%) Pertinent Admission Physical Exam Findings: WITHDRAWAL SYMPTOMS. Laboratory Tests 07/27/17 07/27/17 07/28/17 11:40 11:40 05:45 WBC 6.9 D RBC 5.10 Hgb 14.8 Hct 44.3 MCV 86.8 MCH 29.0 MCHC 33.4 RDW 13.4 Plt Count 212 MPV 9.1 Sodium Potassium Chloride Carbon Dioxide Anion Gap BUN Creatinine Creat Clearance w eGFR Random Glucose Calcium Total Bilirubin AST ALT Alkaline Phosphatase Total Protein Albumin Urine Color Yellow Urine Appearance Clear Urine pH 6.0 Ur Specific [place] 1.026 Urine Protein Negative Urine Glucose (UA) Negative Urine Ketones Negative Urine Blood Negative Urine Nitrite Negative Urine Bilirubin Negative Urine Urobilinogen Negative Ur Leukocyte Esterase Negative RPR Titer HIV 1&2 Antibody Screen Negative HIV P24 Antigen Negative 07/28/17 07/28/17 05:45 05:45 WBC RBC Hgb Hct MCV MCH MCHC RDW Plt Count MPV Sodium 139 Potassium 4.1 Chloride 106 Carbon Dioxide 22 Anion Gap 11 BUN 18 D Creatinine 1.3 Creat Clearance w eGFR > 60 Random Glucose 87 Calcium 9.3 Total Bilirubin 0.3 D AST 23 ALT 21 Alkaline Phosphatase 170 H Total Protein 7.9 Albumin 4.0 Urine Color Urine Appearance Urine pH Ur Specific [place] Urine Protein Urine Glucose (UA) Urine Ketones Urine Blood Urine Nitrite Urine Bilirubin Urine Urobilinogen Ur Leukocyte Esterase RPR Titer Nonreactive HIV 1&2 Antibody Screen HIV P24 Antigen LABS NOTED. - Treatment Hospital Course: Detox Protocol Followed, Detoxed Safely, Responded well, Discharged Condition Good Patient has Accepted a Rehab Referral to: PT [facility] (Chucky JONES.Steffen.). - Medication Discharge Medications: Ambulatory Orders Trazodone HCl 50 mg PO HS 06/08/17 Trazodone HCl 100 mg PO HS #30 tablet 07/28/17 - Diagnosis (1) Cocaine dependence Status: Acute Qualifiers: Substance use status: uncomplicated Qualified Code(s): F14.20 - Cocaine dependence, uncomplicated (2) Dehydration Status: Acute (3) Insomnia Status: Acute Qualifiers: Insomnia type: unspecified Qualified Code(s): G47.00 - Insomnia, unspecified (4) Opioid dependence with withdrawal Status: Acute (5) GERD (gastroesophageal reflux disease) Status: Chronic Qualifiers: Esophagitis presence: esophagitis presence not specified Qualified Code(s) : K21.9 - Gastro-esophageal reflux disease without esophagitis (6) CONCEPCION (generalized anxiety disorder) Status: Chronic (7) Sedative, hypnotic or anxiolytic dependence with withdrawal, uncomplicated Status: Acute (8) MDD (major depressive disorder) Status: Chronic Qualifiers: Major depression recurrence: recurrent Active/Remission status: remission status unspecified Qualified Code(s): F33.9 - Major depressive disorder, recurrent, unspecified (9) ADHD Status: Suspected Qualifiers: Attention deficit-hyperactivity disorder type: unspecified Qualified Code(s ): F90.9 - Attention-deficit hyperactivity disorder, unspecified type (10) Substance induced mood disorder Status: Acute (11) Nicotine dependence Status: Acute Qualifiers: Nicotine product type: cigarettes Substance use status: in withdrawal Qualified Code(s): F17.213 - Nicotine dependence, cigarettes, with withdrawal - AMA Did Patient Leave Against Medical Advice: No
== END 2017-08-02 08:50 | disposition home or self-care (01) | DRG 773 ==
LOC: YASAS 08:34 → Y3N 11:01
PROVIDERS: ADMIT Internal Medicine; ATTEND Internal Medicine
PROC: HZ2ZZZZ Detoxification Services for Substance Abuse Treatment (ICD-10-PCS; principal; 2017-07-27)
DX: F11.23 Opioid dependence with withdrawal (principal); F13.230 Sedative, hypnotic or anxiolytic dependence with withdrawal, uncomplicated; F14.20 Cocaine dependence, uncomplicated; F17.210 Nicotine dependence, cigarettes, uncomplicated; F19.24 Other psychoactive substance dependence with psychoactive substance-induced mood disorder; F33.9 Major depressive disorder, recurrent, unspecified; F41.1 Generalized anxiety disorder; F90.9 Attention-deficit hyperactivity disorder, unspecified type; G47.00 Insomnia, unspecified; E86.0 Dehydration; G40.509 Epileptic seizures related to external causes, not intractable, without status epilepticus; K21.9 Gastro-esophageal reflux disease without esophagitis
CPT/HCPCS: 36415; 80053; 81003; 85027; 86593; 87389; 93005; 93010

== ENCOUNTER 2018-03-21 10:10 | Inpatient (IN) | payer OTHER ==
[2018-03-21 10:25] VITALS: BMI 28.8
--- NOTE | 2018-03-21 12:36 | HP ---
CIWA Score - Admission Criteria OASAS Guidelines: Admission for Medically Managed Detox: Requires at least one of the followin. CIWA greater than 12 2. Seizures within the past 24 hours 3. Delirium tremens within the past 24 hours 4. Hallucinations within the past 24 hours 5. Acute intervention needed for co occurring medical disorder 6. Acute intervention needed for co occurring psychiatric disorder 7. Severe withdrawal that cannot be handled at a lower level of care (continued vomiting, continued diarrhea, abnormal vital signs) requiring intravenous medication and/or fluids 8. Admission ROS S - HPI Chief Complaint: i need help to come in for rehab from heroin, Allergies/Adverse Reactions: Allergies Allergy/AdvReac Type Severity Reaction Status Date / Time amoxicillin [From Augmentin] Allergy Severe Difficulty Verified 03/21/18 11:55 Breathing clavulanic acid Allergy Severe Difficulty Verified 03/21/18 11:55 [From Augmentin] Breathing Fish Containing Products Allergy Severe Difficulty Verified 03/21/18 11:55 Breathing augumentin Allergy Severe Difficulty Uncoded 03/21/18 11:55 Breathing History of Present Illness: this 43 years old with heroin dependence,seeking rehab,used to be on methadone maintenance 70 mgs/day for 08/18 to 01/18. but went to senior living from from 01/14/18 to 03/16/18 not on methadone since then, fear of relapsing if not in control history of copd on albuterol inhaler nicotine dependence anxiety,depression,adhd last medicated wednesday under task pain in both knees and hands arthritis Exam Limitations: No Limitations - Ebola screening Have you traveled outside of the country in the last 21 days: No Have you been sick,other than usual withdrawal symptoms: No - Review of Systems Constitutional: No Symptoms Reported EENT: reports: No Symptoms Reported Respiratory: reports: No Symptoms reported Cardiac: reports: No Symptoms Reported GI: reports: No Symptoms Reported : reports: No Symptoms Reported Musculoskeletal: reports: No Symptoms Reported, Joint Pain Integumentary: reports: No Symptoms Reported Neuro: reports: No Symptoms reported Endocrine: reports: No Symptoms Reported Hematology: reports: No Symptoms Reported Psychiatric: reports: No Sypmtoms Reported, Judgement Intact, Mood/Affect Appropiate, Orientated x3, Anxious, Depressed (insomnia) Patient History - Patient Medical History Hx Anemia: No Hx Asthma: No Hx Chronic Obstructive Pulmonary Disease (COPD): No Hx Cancer: No Hx Cardiac Disorders: No Hx Congestive Heart Failure: No Hx Hypertension: No Hx Hypercholesterolemia: No Hx Pacemaker: No HX Cerebrovascular Accident: No Hx Seizures: No Hx Dementia: No Hx Diabetes: No Hx Gastrointestinal Disorders: Yes (acid reflux no med) Hx Liver Disease: No Hx Genitourinary Disorders: No Hx Sexually Transmitted Disorders: No Hx Renal Disease (ESRD): No Hx Thyroid Disease: No Hx Human Immunodeficiency Virus (HIV): No (01/18 negative) Hx Hepatitis C: No (negative in 01/18) Hx Depression: Yes (anxiety) Hx Suicide Attempt: No Hx Bipolar Disorder: No Hx Schizophrenia: No Other Medical History: no sucidal,no homicidal - Patient Surgical History Past Surgical History: Yes Hx Neurologic Surgery: No Hx Cataract Extraction: No Hx Cardiac Surgery: No Hx Lung Surgery: No Hx Breast Surgery: No Hx Breast Biopsy: No Hx Abdominal Surgery: No Hx Appendectomy: No Hx Cholecystectomy: No Hx Genitourinary Surgery: No Hx Section: No Hx Orthopedic Surgery: No Other Surgical History: left arm abscess surgery secondary to heroin use Anesthesia Reaction: No - PPD History Previous Implant?: Yes Documented Results: Negative w/proof Implanted On Prior [facility] Admission?: Yes Date: 06/10/17 Results: 0 mm PPD to be Administered?: No - Smoking Cessation Smoking history: Current every day smoker Have you smoked in the past 12 months: Yes Aproximately how many cigarettes per day: 20 Hx Chewing Tobacco Use: No Initiated information on smoking cessation: Yes 'Breaking Loose' booklet given: 03/21/18 - Substance & Tx. History Hx Alcohol Use: No Hx Substance Use: Yes Substance Use Type: Heroin Hx Substance Use Treatment: Yes ([facility] 07/27/17 to 08/02/17 completed) - Substances Abused Heroin Route: Injection Frequency: Daily Amount used: 4 bags Age of first use: 35 Date of Last Use: 01/23/18 Family Disease History - Family Disease History Family Disease History: Other: Father (Alcoholic) Admission Physical Exam S - Vital Signs Vital Signs: Vital Signs - 24 hr 03/21/18 10:23 Temperature 97.6 F Pulse Rate 90 Respiratory 18 Rate Blood Pressure 161/89 - Physical General Appearance: Yes: Within Normal Limits HEENTM: Yes: Normocephalic, ALEXANDRA, Pharynx Normal, Other (por dental hygiene upper) Respiratory: Yes: Lungs Clear, Normal Breath Sounds, No Respiratory Distress Neck: Yes: Within Normal Limits, Supple, Trachea in good position Breast: Yes: Within Normal Limits Cardiology: Yes: Within Normal Limits, Regular Rhythm, Regular Rate, S1, S2 Abdominal: Yes: Within Normal Limits, Normal Bowel Sounds, Non Tender, Flat, Soft Genitourinary: Yes: Within Normal Limits Back: Yes: Within Normal Limits Extremities: Yes: Within Normal Limits Neurological: Yes: national investigative [employer] II-XII NML intact, Fully Oriented, Alert, Motor Strength 5/5 Integumentary: Yes: Within Normal Limits, Track [place] Lymphatic: Yes: Within Normal Limits - Diagnostic (1) Opioid dependence Current Visit: Yes Status: Acute (2) Anxiety and depression Current Visit: Yes Status: Acute (3) Insomnia Current Visit: No Status: Acute Qualifiers: Insomnia type: unspecified Qualified Code(s): G47.00 - Insomnia, unspecified (4) Nicotine dependence Current Visit: No Status: Acute Qualifiers: Nicotine product type: cigarettes Substance use status: in withdrawal Qualified Code(s): F17.213 - Nicotine dependence, cigarettes, with withdrawal (5) ADHD Current Visit: No Status: Suspected Qualifiers: Attention deficit-hyperactivity disorder type: unspecified Qualified Code(s ): F90.9 - Attention-deficit hyperactivity disorder, unspecified type Comment: Patient's self report. Cleared for Admission [facility] - Detox or Rehab Claeared for Rehab Admission: Yes [facility] Breath Alcohol Content Breath Alcohol Content: 0 Urine Drug Screen - Results Drug Screen Negative: Yes Inpatient Rehab Admission - Initial Determination Are CD services needed?: Yes Free of communicable disease: Yes Not in need of hospitalization: Yes - Rehab Admission Criteria Previous failed treatment: Yes Poor recovery environment: Yes Comorbidities: Yes Lacks judgement: No Patient is meeting Inpatient Rehab admission criteria:: Yes
[2018-03-21] MEDS ORDERED: guaiFENesin/D-METHORPHAN HB 10 ML UNIT-DOSE CUPS PO PRN (12:49)
[2018-03-21] MEDS ORDERED: MAG HYDROX/AL HYDROX/SIMETH 30 ML UNIT-DOSE CUP PO PRN (12:49)
[2018-03-21] MEDS ORDERED: P-EPHED 60MG/TRIPROLIDI 2.5MG TABLET PO PRN (12:49)
[2018-03-21] MEDS ORDERED: MAGNESIUM HYDROX 2400MG/30ML ORAL SUSPENSION 30 ML CUP PO PRN (12:49)
[2018-03-21] MEDS ORDERED: MAGNESIUM CITRATE 300 ML BOTTLE PO PRN (12:49)
[2018-03-21] MEDS ORDERED: LOPERAMIDE HCL 2 MG CAPSULE PO PRN (12:49)
[2018-03-21] MEDS: NICOTINE 21 MG/24 HOURS TOPICAL PATCH TD SCH (14:55)
[2018-03-21] MEDS: IBUPROFEN 400 MG TABLET (FP) PO PRN (15:19)
[2018-03-21 16:01] LABS: ALK PHOS 143 U/L (45-117); ANION GAP 9 MMOL/L (8-16); BILIRUBIN,TOTAL 0.3 mg/dL (0.2-1); BLOOD UREA NITROGEN 16 mg/dL (7-18); CALCIUM 9.2 mg/dL (8.5-10.1); CHLORIDE 105 mmol/L (98-107); CO2 28 mmol/L (21-32); CREATININE 1.2 mg/dL (0.55-1.3); GLUCOSE,RANDOM 131 mg/dL (74-106); SGOT/AST 17 U/L (15-37); SGPT/ALT 35 U/L (13-61); SODIUM 142 mmol/L (136-145); TOT PROT 7.3 g/dl (6.4-8.2)
[2018-03-21 16:19] LABS: HEMATOCRIT 41.7 % (35.4-49); HEMOGLOBIN 14.5 GM/dL (11.7-16.9); MCH 29.8 pg (25.7-33.7); MCHC 34.9 g/dl (32.0-35.9); MEAN CELL VOLUME 85.3 fl (80-96); MEAN PLT VOLUME 8.5 fl (7.5-11.1); PLATELET COUNT 235 K/MM3 (134-434); RBC 4.88 M/mm3 (4.00-5.60); RDW 14.9 % (11.9-15.9); WHITE BLOOD COUNT 7.5 K/mm3 (4.0-10.0)
[2018-03-21 17:37] LABS: URINE APPEARANCE CLEAR; URINE BILIRUBIN NEGATIVE (<2.0 mg/dL); URINE COLOR YELLOW; URINE GLUCOSE (UA) NEGATIVE (NEGATIVE); URINE KETONE NEGATIVE (NEGATIVE); URINE LEUK ESTERASE NEGATIVE (NEGATIVE); URINE NITRITE NEGATIVE (NEGATIVE); URINE PROTEIN NEGATIVE (NEGATIVE); URINE UROBILINOGEN NEGATIVE mg/dL (0.2-1.0)
--- NOTE | 2018-03-21 18:49 | PN ---
JAMEES Progress Note Note: Called by nursing staff to order medication for patient. Medication reconciliation done and Trazadone 100 mg po HS ordered for patient
[2018-03-21] MEDS: THIAMINE HCL 100 MG TABLET (FP) PO SCH (21:21)
[2018-03-21] MEDS: traZODone HCL 100 MG TABLET (FP) PO SCH (21:21)
[2018-03-21] MEDS: hydrOXYzine PAMOATE 50 MG CAPSULE (FP) PO PRN (21:21)
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
[2018-03-22] MEDS: hydrOXYzine PAMOATE 50 MG CAPSULE (FP) PO PRN ×3 (09:52→21:28)
[2018-03-22] MEDS: NICOTINE 21 MG/24 HOURS TOPICAL PATCH TD SCH (09:52)
[2018-03-22] MEDS: PRENATAL VITAMINS W/ FOLIC ACID TABLET (FP) PO SCH (09:52)
[2018-03-22] MEDS: IBUPROFEN 400 MG TABLET (FP) PO PRN (09:52)
--- NOTE | 2018-03-22 10:34 | EKG ---
Test Reason : Blood Pressure : / mmHG Vent. Rate : 080 BPM Atrial Rate : 080 BPM P-R Int : 138 ms QRS Dur : 082 ms QT Int : 360 ms P-R-T Axes : 061 032 -31 degrees QTc Int : 415 ms NORMAL SINUS RHYTHM WITH SINUS ARRHYTHMIA POSSIBLE LEFT ATRIAL ENLARGEMENT T WAVE ABNORMALITY, CONSIDER INFERIOR ISCHEMIA ABNORMAL ECG WHEN COMPARED WITH ECG OF 27-JUL-2017 11:52, NO SIGNIFICANT CHANGE WAS FOUND Confirmed by Melo Moreau MD ([id number]) on 03/22/2018 10:34:14 AM Referred By: Confirmed By:Melo Moreau MD
[2018-03-22] MEDS: SERTRALINE HCL 50 MG TABLET (FP) PO SCH (13:09)
[2018-03-22] MEDS: traZODone HCL 100 MG TABLET (FP) PO SCH (21:26)
[2018-03-22] MEDS: THIAMINE HCL 100 MG TABLET (FP) PO SCH (21:26)
[2018-03-23] MEDS: hydrOXYzine PAMOATE 50 MG CAPSULE (FP) PO PRN ×2 (10:11→21:12)
[2018-03-23] MEDS: PRENATAL VITAMINS W/ FOLIC ACID TABLET (FP) PO SCH (10:11)
[2018-03-23] MEDS: SERTRALINE HCL 50 MG TABLET (FP) PO SCH (10:11)
[2018-03-23] MEDS: NICOTINE 21 MG/24 HOURS TOPICAL PATCH TD SCH (10:12)
[2018-03-23] MEDS: IBUPROFEN 400 MG TABLET (FP) PO PRN ×2 (10:12→21:12)
--- NOTE | 2018-03-23 10:33 | PN ---
S Progress Note Note: PT C/O ITCHY FACIAL RASH. REPORTS NOT A NEW OUTBREAK-STATES "I WENT TO LONG TERM AND SEE WHAT HAPPENED(SHOWING HIS FACE AND HAIRLINE)". Vital Signs 03/23/18 03/23/18 03:30 06:46 Temperature 97.6 F Pulse Rate 64 Respiratory 18 18 Rate Blood Pressure 138/88 FACE:SLIGHTLY RED PAPULAR RASH AROUND NOSE,CHEEKS AND FOREHEAD. RASH,UNSPECIFIED ERUPTION PLAN:HYDROCORTISONE CREAM 1% APPLY DIRECTED.
[2018-03-23] MEDS: HYDROCORTISONE 1% TOPICAL CREAM 30 GM TUBE TP SCH ×2 (10:42→22:11)
[2018-03-23] MEDS ORDERED: PT OWN MED DRAWER 7, Y5N ONE (14:57)
[2018-03-23] MEDS: THIAMINE HCL 100 MG TABLET (FP) PO SCH (21:11)
[2018-03-23] MEDS: traZODone HCL 100 MG TABLET (FP) PO SCH (21:11)
[2018-03-24] MEDS: SERTRALINE HCL 50 MG TABLET (FP) PO SCH (09:33)
[2018-03-24] MEDS: PRENATAL VITAMINS W/ FOLIC ACID TABLET (FP) PO SCH (09:33)
[2018-03-24] MEDS: HYDROCORTISONE 1% TOPICAL CREAM 30 GM TUBE TP SCH ×2 (09:33→21:42)
[2018-03-24] MEDS: NICOTINE 21 MG/24 HOURS TOPICAL PATCH TD SCH (09:33)
[2018-03-24] MEDS: hydrOXYzine PAMOATE 50 MG CAPSULE (FP) PO PRN ×3 (09:34→21:42)
[2018-03-24] MEDS: IBUPROFEN 400 MG TABLET (FP) PO PRN (14:22)
[2018-03-24] MEDS: THIAMINE HCL 100 MG TABLET (FP) PO SCH (21:41)
[2018-03-24] MEDS: traZODone HCL 100 MG TABLET (FP) PO SCH (21:42)
[2018-03-25] MEDS: PRENATAL VITAMINS W/ FOLIC ACID TABLET (FP) PO SCH (10:00)
[2018-03-25] MEDS: NICOTINE 21 MG/24 HOURS TOPICAL PATCH TD SCH (10:00)
[2018-03-25] MEDS: SERTRALINE HCL 50 MG TABLET (FP) PO SCH (10:00)
[2018-03-25] MEDS: hydrOXYzine PAMOATE 50 MG CAPSULE (FP) PO PRN ×3 (10:00→21:24)
[2018-03-25] MEDS ORDERED: PT OWN MED DRAWER 7, Y5N ONE (10:01)
[2018-03-25] MEDS: HYDROCORTISONE 1% TOPICAL CREAM 30 GM TUBE TP SCH ×2 (10:02→21:25)
--- NOTE | 2018-03-25 12:30 | PN ---
S Progress Note (SOAP) Subjective: C/o opiate cravings. States unable to tolerate CloNidine. States attempts w/ Suboxone treatment were a failure. Was on MMTP and was incarcerated in January. Currently discharged from [facility] M[facility]. States unable to be outside w/o relapsing with opiates. States methadone is only treatment that worked. Objective: A&O x 3. Vital Signs - 24 hr 03/25/18 03/25/18 03:30 07:09 Pulse Rate 81 Respiratory 16 18 Rate Blood Pressure 143/93 Laboratory Last Values WBC 7.5 K/mm3 (4.0-10.0) 03/21/18 13:14 RBC 4.88 M/mm3 (4.00-5.60) 03/21/18 13:14 Hgb 14.5 GM/dL (11.7-16.9) 03/21/18 13:14 Hct 41.7 % (35.4-49) 03/21/18 13:14 MCV 85.3 fl (80-96) 03/21/18 13:14 MCH 29.8 pg (25.7-33.7) 03/21/18 13:14 MCHC 34.9 g/dl (32.0-35.9) 03/21/18 13:14 RDW 14.9 % (11.9-15.9) D 03/21/18 13:14 Plt Count 235 K/MM3 (134-434) 03/21/18 13:14 MPV 8.5 fl (7.5-11.1) 03/21/18 13:14 Sodium 142 mmol/L (136-145) 03/21/18 13:14 Potassium 4.0 mmol/L (3.5-5.1) 03/21/18 13:14 Chloride 105 mmol/L (98-107) 03/21/18 13:14 Carbon Dioxide 28 mmol/L (21-32) 03/21/18 13:14 Anion Gap 9 MMOL/L (8-16) 03/21/18 13:14 BUN 16 mg/dL (7-18) 03/21/18 13:14 Creatinine 1.2 mg/dL (0.55-1.3) 03/21/18 13:14 Creat Clearance w eGFR > 60 (>60) 03/21/18 13:14 Random Glucose 131 mg/dL (74-106) H 03/21/18 13:14 Calcium 9.2 mg/dL (8.5-10.1) 03/21/18 13:14 Total Bilirubin 0.3 mg/dL (0.2-1) 03/21/18 13:14 AST 17 U/L (15-37) 03/21/18 13:14 ALT 35 U/L (13-61) 03/21/18 13:14 Alkaline Phosphatase 143 U/L (45-117) H 03/21/18 13:14 Total Protein 7.3 g/dl (6.4-8.2) 03/21/18 13:14 Albumin 4.0 g/dl (3.4-5.0) 03/21/18 13:14 Urine Color Yellow 03/21/18 15:23 Urine Appearance Clear 03/21/18 15:23 Urine pH 5.0 (5.0-8.0) 03/21/18 15:23 Ur Specific [place] 1.026 (1.010-1.035) 03/21/18 15:23 Urine Protein Negative (NEGATIVE) 03/21/18 15:23 Urine Glucose (UA) Negative (NEGATIVE) 03/21/18 15:23 Urine Ketones Negative (NEGATIVE) 03/21/18 15:23 Urine Blood Negative (NEGATIVE) 03/21/18 15:23 Urine Nitrite Negative (NEGATIVE) 03/21/18 15:23 Urine Bilirubin Negative (<2.0 mg/dL) 03/21/18 15:23 Urine Urobilinogen Negative mg/dL (0.2-1.0) 03/21/18 15:23 Ur Leukocyte Esterase Negative (NEGATIVE) 03/21/18 15:23 RPR Titer Nonreactive (NONREACTIVE) 03/21/18 13:14 HIV 1&2 Antibody Screen Negative 03/21/18 13:14 HIV P24 Antigen Negative 03/21/18 13:14 Labs reviewed. Assessment: Early opiate remission w/ continued cravings. Plan: Spoke w/ DELFINA Cain at [facility]. Patient has been discharged from program and states unable to be re-admitted at this time because of waiting list. Encourage patient to meet w/ counselor and continue to try to make arrangements for a hand-off to an MMTP upon discharge..
[2018-03-25] MEDS: THIAMINE HCL 100 MG TABLET (FP) PO SCH (21:24)
[2018-03-25] MEDS: traZODone HCL 100 MG TABLET (FP) PO SCH (21:24)
[2018-03-26] MEDS: NICOTINE 21 MG/24 HOURS TOPICAL PATCH TD SCH (10:28)
[2018-03-26] MEDS: PRENATAL VITAMINS W/ FOLIC ACID TABLET (FP) PO SCH (10:28)
[2018-03-26] MEDS: SERTRALINE HCL 50 MG TABLET (FP) PO SCH (10:28)
[2018-03-26] MEDS: hydrOXYzine PAMOATE 50 MG CAPSULE (FP) PO PRN ×3 (10:28→21:45)
[2018-03-26] MEDS: HYDROCORTISONE 1% TOPICAL CREAM 30 GM TUBE TP SCH ×2 (10:29→21:46)
[2018-03-26] MEDS: traZODone HCL 100 MG TABLET (FP) PO SCH (21:45)
[2018-03-26] MEDS: IBUPROFEN 400 MG TABLET (FP) PO PRN (21:45)
[2018-03-26] MEDS: THIAMINE HCL 100 MG TABLET (FP) PO SCH (21:46)
[2018-03-27] MEDS: PRENATAL VITAMINS W/ FOLIC ACID TABLET (FP) PO SCH (10:11)
[2018-03-27] MEDS: hydrOXYzine PAMOATE 50 MG CAPSULE (FP) PO PRN ×3 (10:11→21:26)
[2018-03-27] MEDS: HYDROCORTISONE 1% TOPICAL CREAM 30 GM TUBE TP SCH ×2 (10:11→21:27)
[2018-03-27] MEDS: SERTRALINE HCL 50 MG TABLET (FP) PO SCH (10:11)
[2018-03-27] MEDS: NICOTINE 21 MG/24 HOURS TOPICAL PATCH TD SCH (10:11)
[2018-03-27] MEDS: IBUPROFEN 400 MG TABLET (FP) PO PRN ×2 (14:11→21:26)
[2018-03-27] MEDS: traZODone HCL 100 MG TABLET (FP) PO SCH (21:26)
[2018-03-27] MEDS: THIAMINE HCL 100 MG TABLET (FP) PO SCH (21:26)
[2018-03-28] MEDS: HYDROCORTISONE 1% TOPICAL CREAM 30 GM TUBE TP SCH ×2 (10:33→21:24)
[2018-03-28] MEDS: PRENATAL VITAMINS W/ FOLIC ACID TABLET (FP) PO SCH (10:33)
[2018-03-28] MEDS: SERTRALINE HCL 50 MG TABLET (FP) PO SCH (10:33)
[2018-03-28] MEDS: NICOTINE 21 MG/24 HOURS TOPICAL PATCH TD SCH (10:33)
[2018-03-28] MEDS: hydrOXYzine PAMOATE 50 MG CAPSULE (FP) PO PRN ×2 (11:27→21:25)
[2018-03-28] MEDS: IBUPROFEN 400 MG TABLET (FP) PO PRN (15:19)
[2018-03-28] MEDS: THIAMINE HCL 100 MG TABLET (FP) PO SCH (21:24)
[2018-03-28] MEDS: traZODone HCL 100 MG TABLET (FP) PO SCH (21:24)
[2018-03-29] MEDS: SERTRALINE HCL 50 MG TABLET (FP) PO SCH (10:43)
[2018-03-29] MEDS: NICOTINE 21 MG/24 HOURS TOPICAL PATCH TD SCH (10:43)
[2018-03-29] MEDS: PRENATAL VITAMINS W/ FOLIC ACID TABLET (FP) PO SCH (10:43)
[2018-03-29] MEDS: HYDROCORTISONE 1% TOPICAL CREAM 30 GM TUBE TP SCH ×2 (10:43→21:56)
[2018-03-29] MEDS: hydrOXYzine PAMOATE 50 MG CAPSULE (FP) PO PRN ×2 (11:52→21:55)
[2018-03-29] MEDS: THIAMINE HCL 100 MG TABLET (FP) PO SCH (21:55)
[2018-03-29] MEDS: traZODone HCL 100 MG TABLET (FP) PO SCH (21:55)
[2018-03-30] MEDS: SERTRALINE HCL 50 MG TABLET (FP) PO SCH (10:07)
[2018-03-30] MEDS: PRENATAL VITAMINS W/ FOLIC ACID TABLET (FP) PO SCH (10:07)
[2018-03-30] MEDS: hydrOXYzine PAMOATE 50 MG CAPSULE (FP) PO PRN ×3 (10:07→21:31)
[2018-03-30] MEDS: NICOTINE 21 MG/24 HOURS TOPICAL PATCH TD SCH (10:07)
[2018-03-30] MEDS ORDERED: PT OWN MED DRAWER 7, Y5N ONE (10:08)
[2018-03-30] MEDS: HYDROCORTISONE 1% TOPICAL CREAM 30 GM TUBE TP SCH ×2 (10:08→21:30)
--- NOTE | 2018-03-30 11:43 | PN ---
Psychiatric Progress Note Vital Signs: Vital Signs Period Temp Pulse Resp BP Sys/Hancock Pulse Ox Last 24 Hr 97.5 F 67 18-20 133/90 Date of Session: 03/30/18 Chief Complaint:: " I feel depressed ". HPI: Referred for psychiatric follow-up to address complain of dysphoria and anhedonia. ROS: Visible on unit, ambulatory and sociable. Intact cognition. Current Medications: Active Medications Generic Name Dose Route Start Last Admin Trade Name Freq PRN Reason Stop Dose Admin Acetaminophen 650 mg 03/21/18 12:49 Tylenol - PO Q4H PRN FEVER Al Hydroxide/Mg Hydroxide 30 ml 03/21/18 12:49 Mylanta Oral Suspension - PO Q6H PRN DYSPEPSIA Eucalyptus/Menthol/Phenol/Sorbitol 1 each 03/21/18 12:49 Cepastat Lozenge - MM Q4H PRN SORE THROAT Guaifenesin 10 ml 03/21/18 12:49 Robitussin Dm - PO Q6H PRN COUGH Hydrocortisone 1 applic 03/23/18 10:30 03/30/18 10:08 Hytone 1% Cream - TP 1 applic BID ABIMAEL Administration Hydroxyzine Pamoate 50 mg 03/21/18 12:49 03/30/18 10:07 Vistaril - PO 50 mg Q4H PRN Administration AGITATION Ibuprofen 400 mg 03/21/18 12:49 03/28/18 15:19 Motrin - PO 400 mg Q6H PRN Administration Pain level 4-6 Loperamide HCl 4 mg 03/21/18 12:49 Imodium - PO Q6H PRN DIARRHEA Magnesium Citrate 300 ml 03/21/18 12:49 Citroma - PO Q48H PRN CONSTIPATION Magnesium Hydroxide 30 ml 03/21/18 12:49 Milk Of Magnesia - PO DAILY PRN CONSTIPATION Melatonin 5 mg 03/21/18 22:00 Melatonin PO HS PRN INSOMNIA Nicotine 21 mg 03/21/18 14:15 03/30/18 10:07 Nicoderm Patch - TD 21 mg DAILY ABIMAEL Administration Multivit/Folic Acid/Iron 1 tab 03/22/18 10:00 03/30/18 10:07 Vitamins (Sjr) - PO 1 tab DAILY ABIMAEL Administration Pseudoephedrine/Triprolidine 1 combo 03/21/18 12:49 Actifed - PO TID PRN NASAL CONGESTION Sertraline HCl 50 mg 03/22/18 13:00 03/30/18 10:07 Zoloft - PO 50 mg DAILY ABIMAEL Administration Thiamine HCl 100 mg 03/21/18 22:00 03/29/18 21:55 Vitamin B1 - PO 100 mg HS ABIMAEL Administration Trazodone HCl 100 mg 03/21/18 22:00 03/29/18 21:55 Desyrel - PO 100 mg HS ABIMAEL Administration Medication(s) Change(s): Sertraline is raised to 100 mg po daily. Side effects/ benefits discussed with the patient. Made aware of potential of sexual dysfunction and suicidal ideation. Patient endorses good tolerability to sertraline. Agrees to this careplan. Unit psychiatrist will follow response. Current Side Effect: No Lab tests ordered: No Lab tests reviewed: Yes Provider note:: Chart reviewed. Met with patient for therapy session and re- assessment of current mental status. Mr Berman is found to be a pleasant individual, well-related, coherent and goal-directed. Feels moderately depressed but denies experiencing suicidal or homicidal thoughts, intent/plan. Reports decent appetite and fair sleep. Motivation is self-reported as low. Personal hygiene remains acceptable. Adherence to treatment plan : optimal. Patient indicates that he used to be on a " higher " dose of sertraline. Agrees to titration to 100 mg (from 50 mg). Mental status remains stable. No evidence of signs heralding imminent decompensation. Unremarkable hospital course. Reassurance and support provided in this session. Sleep hygiene reinforced. Socialization + active participation in groups : encouraged. Patient is receptive to teaching. Progress under daily monitoring and SSRI dose will be adjusted as clinically indicated. Total face to face time:: 35 Mental Status Exam - Mental Status Exam Alert and Oriented to: Time, Place, Person Cognitive Function: Good Patient Appearance: Well Groomed Mood: Apprehensive, Hopeful Affect: Normal Range Patient Behavior: Appropriate, Cooperative Speech Pattern: Clear, Appropriate Voice Loudness: Normal Thought Process: Intact, Goal Oriented Thought Disorder: Not Present Hallucinations: Denies Suicidal Ideation: Denies Homicidal Ideation: Denies Insight/Judgement: Fair Sleep: Fair Appetite: Good Muscle strength/Tone: Normal Gait/Station: Normal Psychiatric Treatment Plan - Problem List (1) Opioid dependence Current Visit: Yes Comment: . (2) Sedative hypnotic or anxiolytic dependence Current Visit: Yes Comment: . (3) Cocaine dependence Current Visit: Yes Qualifiers: Substance use status: uncomplicated Qualified Code(s): F14.20 - Cocaine dependence, uncomplicated Comment: . (4) Substance induced mood disorder Current Visit: Yes Comment: . (5) Nicotine dependence Current Visit: Yes Qualifiers: Nicotine product type: cigarettes Substance use status: in withdrawal Qualified Code(s): F17.213 - Nicotine dependence, cigarettes, with withdrawal Comment: . (6) MDD (major depressive disorder) Current Visit: Yes Qualifiers: Major depression recurrence: recurrent Active/Remission status: remission status unspecified Qualified Code(s): F33.9 - Major depressive disorder, recurrent, unspecified Comment: .
[2018-03-30] MEDS: IBUPROFEN 400 MG TABLET (FP) PO PRN ×2 (15:05→21:31)
[2018-03-30] MEDS: traZODone HCL 100 MG TABLET (FP) PO SCH (21:29)
[2018-03-30] MEDS: THIAMINE HCL 100 MG TABLET (FP) PO SCH (21:29)
[2018-03-31] MEDS: hydrOXYzine PAMOATE 50 MG CAPSULE (FP) PO PRN ×3 (02:49→21:42)
[2018-03-31] MEDS: ACETAMINOPHEN 325 MG TABLET (FP) PO PRN ×2 (02:49→14:04)
[2018-03-31] MEDS: NICOTINE 21 MG/24 HOURS TOPICAL PATCH TD SCH (10:07)
[2018-03-31] MEDS: HYDROCORTISONE 1% TOPICAL CREAM 30 GM TUBE TP SCH ×2 (10:07→22:00)
[2018-03-31] MEDS: PRENATAL VITAMINS W/ FOLIC ACID TABLET (FP) PO SCH (10:07)
[2018-03-31] MEDS: SERTRALINE HCL 50 MG TABLET (FP) PO SCH (10:07)
[2018-03-31] MEDS: IBUPROFEN 400 MG TABLET (FP) PO PRN (10:07)
[2018-03-31] MEDS ORDERED: BENZOYL PEROXIDE 5% 60 GM GEL..GRAM. TP ONE (12:04)
[2018-03-31] MEDS: THIAMINE HCL 100 MG TABLET (FP) PO SCH (21:42)
[2018-03-31] MEDS: traZODone HCL 100 MG TABLET (FP) PO SCH (21:42)
[2018-03-31] MEDS: IBUPROFEN 600 MG TABLET (FP) PO PRN (21:43)
[2018-04-01] MEDS ORDERED: PT OWN MED DRAWER 7, Y5N ONE (08:39)
[2018-04-01] MEDS: NICOTINE 21 MG/24 HOURS TOPICAL PATCH TD SCH (10:24)
[2018-04-01] MEDS: IBUPROFEN 600 MG TABLET (FP) PO PRN ×3 (10:26→21:46)
[2018-04-01] MEDS: hydrOXYzine PAMOATE 50 MG CAPSULE (FP) PO PRN ×2 (10:28→21:44)
[2018-04-01] MEDS: PRENATAL VITAMINS W/ FOLIC ACID TABLET (FP) PO SCH (10:28)
[2018-04-01] MEDS: SERTRALINE HCL 50 MG TABLET (FP) PO SCH (10:28)
[2018-04-01] MEDS: BENZOYL PEROXIDE 5% 60 GM GEL..GRAM. TP SCH (10:29)
[2018-04-01] MEDS: HYDROCORTISONE 1% TOPICAL CREAM 30 GM TUBE TP SCH ×2 (10:29→21:48)
[2018-04-01] MEDS: ACETAMINOPHEN 325 MG TABLET (FP) PO PRN (18:48)
[2018-04-01] MEDS: traZODone HCL 100 MG TABLET (FP) PO SCH (21:44)
[2018-04-01] MEDS: THIAMINE HCL 100 MG TABLET (FP) PO SCH (21:44)
[2018-04-01] MEDS: MELATONIN 5 MG TABLETS PO PRN (21:47)
[2018-04-02] MEDS ORDERED: PT OWN MED DRAWER 7, Y5N ONE (08:33)
[2018-04-02] MEDS: PRENATAL VITAMINS W/ FOLIC ACID TABLET (FP) PO SCH (09:51)
[2018-04-02] MEDS: SERTRALINE HCL 50 MG TABLET (FP) PO SCH (09:51)
[2018-04-02] MEDS: NICOTINE 21 MG/24 HOURS TOPICAL PATCH TD SCH (09:51)
[2018-04-02] MEDS: hydrOXYzine PAMOATE 50 MG CAPSULE (FP) PO PRN ×3 (09:52→21:38)
[2018-04-02] MEDS: BENZOYL PEROXIDE 5% 60 GM GEL..GRAM. TP SCH (09:52)
[2018-04-02] MEDS: HYDROCORTISONE 1% TOPICAL CREAM 30 GM TUBE TP SCH ×2 (09:52→21:38)
[2018-04-02] MEDS: IBUPROFEN 600 MG TABLET (FP) PO PRN ×2 (09:52→21:38)
[2018-04-02] MEDS: traZODone HCL 100 MG TABLET (FP) PO SCH (21:37)
[2018-04-02] MEDS: THIAMINE HCL 100 MG TABLET (FP) PO SCH (21:37)
[2018-04-03] MEDS: hydrOXYzine PAMOATE 50 MG CAPSULE (FP) PO PRN ×3 (06:19→21:47)
[2018-04-03] MEDS: HYDROCORTISONE 1% TOPICAL CREAM 30 GM TUBE TP SCH ×2 (09:40→22:25)
[2018-04-03] MEDS: NICOTINE 21 MG/24 HOURS TOPICAL PATCH TD SCH (09:40)
[2018-04-03] MEDS: PRENATAL VITAMINS W/ FOLIC ACID TABLET (FP) PO SCH (09:40)
[2018-04-03] MEDS: SERTRALINE HCL 50 MG TABLET (FP) PO SCH (09:40)
[2018-04-03] MEDS: BENZOYL PEROXIDE 5% 60 GM GEL..GRAM. TP SCH (09:40)
[2018-04-03] MEDS: IBUPROFEN 600 MG TABLET (FP) PO PRN ×2 (09:41→21:30)
--- NOTE | 2018-04-03 13:40 | PN ---
[facility] Progress Note Note: pt c/o sores to mouth. Vit c tablets and viscous lidocaine ordered to facilitate healing
[2018-04-03] MEDS: ASCORBIC ACID 250 MG TABLET (FP) PO SCH ×2 (15:54→21:47)
[2018-04-03] MEDS: LIDOCAINE VISCOUS 2% ORAL/TOP 20 ML UNIT-DOSE CUP MM PRN (15:55)
[2018-04-03] MEDS: THIAMINE HCL 100 MG TABLET (FP) PO SCH (21:47)
[2018-04-03] MEDS: traZODone HCL 100 MG TABLET (FP) PO SCH (21:47)
[2018-04-03] MEDS: MENTHOL/PHENOL 1 EACH UD MM PRN (23:45)
[2018-04-04] MEDS: hydrOXYzine PAMOATE 50 MG CAPSULE (FP) PO PRN ×3 (02:38→21:39)
[2018-04-04] MEDS: ACETAMINOPHEN 325 MG TABLET (FP) PO PRN (02:38)
[2018-04-04] MEDS: ASCORBIC ACID 250 MG TABLET (FP) PO SCH ×2 (09:48→21:39)
[2018-04-04] MEDS: SERTRALINE HCL 50 MG TABLET (FP) PO SCH (09:48)
[2018-04-04] MEDS: PRENATAL VITAMINS W/ FOLIC ACID TABLET (FP) PO SCH (09:48)
[2018-04-04] MEDS: NICOTINE 21 MG/24 HOURS TOPICAL PATCH TD SCH (09:49)
--- NOTE | 2018-04-04 09:50 | PN ---
[facility] Progress Note Note: PATIENT SEEN FOR C/O PRODUCTIVE COUGH, SORE THROAT AND CHEST CONGESTION. PATIENT DENIES FEVER, CP AND SOB. HAS H/O NICOTINE USE. Vital Signs Temperature 97.6 F 04/04/18 06:58 Pulse Rate 70 04/04/18 06:58 Respiratory Rate 18 04/04/18 06:58 Blood Pressure 123/81 04/04/18 06:58 O2 Sat by Pulse Oximetry (%) Laboratory Tests 03/21/18 03/21/18 03/21/18 13:14 13:14 13:14 WBC 7.5 RBC 4.88 Hgb 14.5 Hct 41.7 MCV 85.3 MCH 29.8 MCHC 34.9 RDW 14.9 D Plt Count 235 MPV 8.5 Sodium 142 Potassium 4.0 Chloride 105 Carbon Dioxide 28 Anion Gap 9 BUN 16 Creatinine 1.2 Creat Clearance w eGFR > 60 Random Glucose 131 H Calcium 9.2 Total Bilirubin 0.3 AST 17 ALT 35 Alkaline Phosphatase 143 H Total Protein 7.3 Albumin 4.0 Urine Color Urine Appearance Urine pH Ur Specific [place] Urine Protein Urine Glucose (UA) Urine Ketones Urine Blood Urine Nitrite Urine Bilirubin Urine Urobilinogen Ur Leukocyte Esterase RPR Titer HIV 1&2 Antibody Screen Negative HIV P24 Antigen Negative 03/21/18 03/21/18 13:14 15:23 WBC RBC Hgb Hct MCV MCH MCHC RDW Plt Count MPV Sodium Potassium Chloride Carbon Dioxide Anion Gap BUN Creatinine Creat Clearance w eGFR Random Glucose Calcium Total Bilirubin AST ALT Alkaline Phosphatase Total Protein Albumin Urine Color Yellow Urine Appearance Clear Urine pH 5.0 Ur Specific [place] 1.026 Urine Protein Negative Urine Glucose (UA) Negative Urine Ketones Negative Urine Blood Negative Urine Nitrite Negative Urine Bilirubin Negative Urine Urobilinogen Negative Ur Leukocyte Esterase Negative RPR Titer Nonreactive HIV 1&2 Antibody Screen HIV P24 Antigen PE: SKIN WARM AND DRY HEENT: +PERRLA, EOMS INTACT BL, + CHANCRE SORES ON INNER BOTTOM AND UPPER LIPS, MOIST, PHARYNX PINK NO VISIBLE EXUDATE CAR S1S2 RESP MILD RHONCHI, CLEARS WITH COUGHING, NO CRACKLES OR WHEEZES EXT FULL ROM, NO EDEMA A/P: COUGH/CHEST CONGESTION WILL START ZPAK INCREASE ORAL FLUIDS CONTINUE VISCOUS LIDOCAINE FOR ORAL SORES PAIN RELIEF CONTINUE TO MONITOR CLINICALLY
[2018-04-04] MEDS: BENZOYL PEROXIDE 5% 60 GM GEL..GRAM. TP SCH (09:51)
[2018-04-04] MEDS ORDERED: PT OWN MED DRAWER 7, Y5N ONE (09:52)
[2018-04-04] MEDS: HYDROCORTISONE 1% TOPICAL CREAM 30 GM TUBE TP SCH ×2 (09:52→21:40)
[2018-04-04] MEDS ORDERED: AZITHROMYCIN 250 MG TABLET PO ONE (10:15)
[2018-04-04] MEDS: IBUPROFEN 600 MG TABLET (FP) PO PRN (20:11)
[2018-04-04] MEDS: THIAMINE HCL 100 MG TABLET (FP) PO SCH (21:39)
[2018-04-04] MEDS: traZODone HCL 100 MG TABLET (FP) PO SCH (21:39)
[2018-04-05] MEDS: PRENATAL VITAMINS W/ FOLIC ACID TABLET (FP) PO SCH (10:19)
[2018-04-05] MEDS: hydrOXYzine PAMOATE 50 MG CAPSULE (FP) PO PRN ×2 (10:19→21:25)
[2018-04-05] MEDS: NICOTINE 21 MG/24 HOURS TOPICAL PATCH TD SCH (10:19)
[2018-04-05] MEDS: ASCORBIC ACID 250 MG TABLET (FP) PO SCH ×2 (10:19→21:25)
[2018-04-05] MEDS: SERTRALINE HCL 50 MG TABLET (FP) PO SCH (10:19)
[2018-04-05] MEDS: BENZOYL PEROXIDE 5% 60 GM GEL..GRAM. TP SCH (10:22)
[2018-04-05] MEDS ORDERED: PT OWN MED DRAWER 7, Y5N ONE (10:22)
[2018-04-05] MEDS: HYDROCORTISONE 1% TOPICAL CREAM 30 GM TUBE TP SCH ×2 (10:22→21:26)
[2018-04-05] MEDS: AZITHROMYCIN 250 MG TABLET PO SCH (10:43)
[2018-04-05] MEDS: MENTHOL/PHENOL 1 EACH UD MM PRN ×2 (11:10→16:53)
[2018-04-05] MEDS: IBUPROFEN 600 MG TABLET (FP) PO PRN (21:25)
[2018-04-05] MEDS: THIAMINE HCL 100 MG TABLET (FP) PO SCH (21:25)
[2018-04-05] MEDS: traZODone HCL 100 MG TABLET (FP) PO SCH (21:25)
[2018-04-05] MEDS: MELATONIN 5 MG TABLETS PO PRN (23:55)
[2018-04-06] MEDS: SERTRALINE HCL 50 MG TABLET (FP) PO SCH (10:23)
[2018-04-06] MEDS: AZITHROMYCIN 250 MG TABLET PO SCH (10:24)
[2018-04-06] MEDS: NICOTINE 21 MG/24 HOURS TOPICAL PATCH TD SCH (10:24)
[2018-04-06] MEDS: ASCORBIC ACID 250 MG TABLET (FP) PO SCH ×2 (10:24→21:33)
[2018-04-06] MEDS: PRENATAL VITAMINS W/ FOLIC ACID TABLET (FP) PO SCH (10:24)
[2018-04-06] MEDS: BENZOYL PEROXIDE 5% 60 GM GEL..GRAM. TP SCH (10:25)
[2018-04-06] MEDS: HYDROCORTISONE 1% TOPICAL CREAM 30 GM TUBE TP SCH ×2 (10:25→21:33)
[2018-04-06] MEDS: IBUPROFEN 600 MG TABLET (FP) PO PRN ×2 (10:25→16:06)
[2018-04-06] MEDS ORDERED: PT OWN MED DRAWER 7, Y5N ONE (20:47)
[2018-04-06] MEDS: traZODone HCL 100 MG TABLET (FP) PO SCH (21:33)
[2018-04-06] MEDS: THIAMINE HCL 100 MG TABLET (FP) PO SCH (21:33)
[2018-04-06] MEDS: hydrOXYzine PAMOATE 50 MG CAPSULE (FP) PO SCH (21:34)
[2018-04-07] MEDS: BENZOYL PEROXIDE 5% 60 GM GEL..GRAM. TP SCH (09:43)
[2018-04-07] MEDS: ASCORBIC ACID 250 MG TABLET (FP) PO SCH ×2 (09:44→21:21)
[2018-04-07] MEDS: hydrOXYzine PAMOATE 50 MG CAPSULE (FP) PO SCH ×2 (09:44→21:21)
[2018-04-07] MEDS: IBUPROFEN 600 MG TABLET (FP) PO PRN ×2 (09:44→19:27)
[2018-04-07] MEDS: SERTRALINE HCL 50 MG TABLET (FP) PO SCH (09:46)
[2018-04-07] MEDS: MENTHOL/PHENOL 1 EACH UD MM PRN (09:47)
--- NOTE | 2018-04-07 09:51 | PN ---
[facility] Progress Note Note: PATIENT SEEN FOR C/O PAINFUL MOUTH SORES AND SWOLLEN GLANDS. CURRENTLY TREATED WITH Z DARIAN AND VISCOUS LIDOCAINE TREATMENT. PATIENT DENIES FEVER, COUGH, EARACHE AND NASAL CONGESTION. +C/O SORE THROAT. Vital Signs Temperature 97.6 F 04/07/18 06:27 Pulse Rate 68 04/07/18 06:27 Respiratory Rate 18 04/07/18 06:27 Blood Pressure 120/93 04/07/18 06:27 O2 Sat by Pulse Oximetry (%) Laboratory Tests 03/21/18 03/21/18 03/21/18 13:14 13:14 13:14 WBC 7.5 RBC 4.88 Hgb 14.5 Hct 41.7 MCV 85.3 MCH 29.8 MCHC 34.9 RDW 14.9 D Plt Count 235 MPV 8.5 Sodium 142 Potassium 4.0 Chloride 105 Carbon Dioxide 28 Anion Gap 9 BUN 16 Creatinine 1.2 Creat Clearance w eGFR > 60 Random Glucose 131 H Calcium 9.2 Total Bilirubin 0.3 AST 17 ALT 35 Alkaline Phosphatase 143 H Total Protein 7.3 Albumin 4.0 Urine Color Urine Appearance Urine pH Ur Specific [place] Urine Protein Urine Glucose (UA) Urine Ketones Urine Blood Urine Nitrite Urine Bilirubin Urine Urobilinogen Ur Leukocyte Esterase RPR Titer HIV 1&2 Antibody Screen Negative HIV P24 Antigen Negative 03/21/18 03/21/18 13:14 15:23 WBC RBC Hgb Hct MCV MCH MCHC RDW Plt Count MPV Sodium Potassium Chloride Carbon Dioxide Anion Gap BUN Creatinine Creat Clearance w eGFR Random Glucose Calcium Total Bilirubin AST ALT Alkaline Phosphatase Total Protein Albumin Urine Color Yellow Urine Appearance Clear Urine pH 5.0 Ur Specific [place] 1.026 Urine Protein Negative Urine Glucose (UA) Negative Urine Ketones Negative Urine Blood Negative Urine Nitrite Negative Urine Bilirubin Negative Urine Urobilinogen Negative Ur Leukocyte Esterase Negative RPR Titer Nonreactive HIV 1&2 Antibody Screen HIV P24 Antigen PE: ALERT AND ORIENTED X 3 SKIN WARM AND DRY ORAL MUCOSA AND PHARYNX PINK AND MOIST. + MULTIPLE SORES ON BOTTOM/ UPPER LIPS AND INNER CHEEKS. NO ACTIVE BLEEDING OR ULCERATIONS NOTED. A/P: URI/PHARYNGITIS: CONTINUE ZPAK AND VISCOUS LIDOCAINE ?CHANCRE SORE VS HSV TYPE 1: WILL ORDER HSV 1/2 AB AND IGG VALTREX 1GM BID X ONE DAY CONTINUE TO MONITOR CLINICALLY
[2018-04-07] MEDS: NICOTINE 21 MG/24 HOURS TOPICAL PATCH TD SCH (10:08)
[2018-04-07] MEDS: PRENATAL VITAMINS W/ FOLIC ACID TABLET (FP) PO SCH (10:08)
[2018-04-07] MEDS: HYDROCORTISONE 1% TOPICAL CREAM 30 GM TUBE TP SCH ×2 (10:08→21:22)
[2018-04-07] MEDS: AZITHROMYCIN 250 MG TABLET PO SCH (11:41)
[2018-04-07] MEDS: valACYclovir HCL 500 MG TABLET (FP) PO SCH ×2 (11:41→21:21)
[2018-04-07] MEDS: ACETAMINOPHEN 325 MG TABLET (FP) PO PRN (14:24)
[2018-04-07] MEDS: THIAMINE HCL 100 MG TABLET (FP) PO SCH (21:20)
[2018-04-07] MEDS: traZODone HCL 100 MG TABLET (FP) PO SCH (21:21)
[2018-04-07] MEDS: MELATONIN 5 MG TABLETS PO PRN (21:22)
[2018-04-07] MEDS: LIDOCAINE VISCOUS 2% ORAL/TOP 20 ML UNIT-DOSE CUP MM PRN (23:57)
[2018-04-08] MEDS: IBUPROFEN 600 MG TABLET (FP) PO PRN ×2 (02:11→10:01)
[2018-04-08] MEDS ORDERED: PT OWN MED DRAWER 7, Y5N ONE (08:33)
[2018-04-08] MEDS: BENZOYL PEROXIDE 5% 60 GM GEL..GRAM. TP SCH (09:59)
[2018-04-08] MEDS: HYDROCORTISONE 1% TOPICAL CREAM 30 GM TUBE TP SCH ×2 (09:59→21:41)
[2018-04-08] MEDS: PRENATAL VITAMINS W/ FOLIC ACID TABLET (FP) PO SCH (10:00)
[2018-04-08] MEDS: SERTRALINE HCL 50 MG TABLET (FP) PO SCH (10:00)
[2018-04-08] MEDS: ASCORBIC ACID 250 MG TABLET (FP) PO SCH ×2 (10:00→21:40)
[2018-04-08] MEDS: hydrOXYzine PAMOATE 50 MG CAPSULE (FP) PO SCH ×2 (10:00→21:40)
[2018-04-08] MEDS: AZITHROMYCIN 250 MG TABLET PO SCH (10:01)
[2018-04-08] MEDS: NICOTINE 21 MG/24 HOURS TOPICAL PATCH TD SCH (10:02)
[2018-04-08] MEDS: LIDOCAINE VISCOUS 2% ORAL/TOP 20 ML UNIT-DOSE CUP MM PRN (10:59)
[2018-04-08] MEDS: THIAMINE HCL 100 MG TABLET (FP) PO SCH (21:40)
[2018-04-08] MEDS: MELATONIN 5 MG TABLETS PO PRN (21:40)
[2018-04-08] MEDS: traZODone HCL 100 MG TABLET (FP) PO SCH (21:41)
[2018-04-09] MEDS: hydrOXYzine PAMOATE 50 MG CAPSULE (FP) PO SCH ×2 (10:17→21:25)
[2018-04-09] MEDS: ASCORBIC ACID 250 MG TABLET (FP) PO SCH ×2 (10:17→21:25)
[2018-04-09] MEDS: PRENATAL VITAMINS W/ FOLIC ACID TABLET (FP) PO SCH (10:17)
[2018-04-09] MEDS: SERTRALINE HCL 50 MG TABLET (FP) PO SCH (10:17)
[2018-04-09] MEDS: NICOTINE 21 MG/24 HOURS TOPICAL PATCH TD SCH (10:17)
[2018-04-09] MEDS: HYDROCORTISONE 1% TOPICAL CREAM 30 GM TUBE TP SCH ×2 (10:18→21:26)
[2018-04-09] MEDS: IBUPROFEN 600 MG TABLET (FP) PO PRN (10:18)
[2018-04-09] MEDS: BENZOYL PEROXIDE 5% 60 GM GEL..GRAM. TP SCH (10:18)
[2018-04-09] MEDS: traZODone HCL 100 MG TABLET (FP) PO SCH (21:25)
[2018-04-09] MEDS: MELATONIN 5 MG TABLETS PO PRN (21:25)
[2018-04-09] MEDS: THIAMINE HCL 100 MG TABLET (FP) PO SCH (21:25)
[2018-04-10] MEDS: PRENATAL VITAMINS W/ FOLIC ACID TABLET (FP) PO SCH (09:56)
[2018-04-10] MEDS: NICOTINE 21 MG/24 HOURS TOPICAL PATCH TD SCH (09:56)
[2018-04-10] MEDS: ASCORBIC ACID 250 MG TABLET (FP) PO SCH ×2 (09:56→21:31)
[2018-04-10] MEDS: hydrOXYzine PAMOATE 50 MG CAPSULE (FP) PO SCH ×2 (09:56→21:30)
[2018-04-10] MEDS: SERTRALINE HCL 50 MG TABLET (FP) PO SCH (09:56)
[2018-04-10] MEDS: BENZOYL PEROXIDE 5% 60 GM GEL..GRAM. TP SCH (09:57)
[2018-04-10] MEDS: HYDROCORTISONE 1% TOPICAL CREAM 30 GM TUBE TP SCH ×2 (09:57→21:31)
[2018-04-10] MEDS: IBUPROFEN 600 MG TABLET (FP) PO PRN (09:57)
[2018-04-10] MEDS: traZODone HCL 100 MG TABLET (FP) PO SCH (21:30)
[2018-04-10] MEDS: THIAMINE HCL 100 MG TABLET (FP) PO SCH (21:30)
[2018-04-10] MEDS: MELATONIN 5 MG TABLETS PO PRN (21:30)
[2018-04-10] MEDS ORDERED: PT OWN MED DRAWER 7, Y5N ONE (22:06)
[2018-04-11] MEDS: SERTRALINE HCL 50 MG TABLET (FP) PO SCH (10:17)
[2018-04-11] MEDS: PRENATAL VITAMINS W/ FOLIC ACID TABLET (FP) PO SCH (10:17)
[2018-04-11] MEDS: BENZOYL PEROXIDE 5% 60 GM GEL..GRAM. TP SCH (10:17)
[2018-04-11] MEDS: NICOTINE 21 MG/24 HOURS TOPICAL PATCH TD SCH (10:17)
[2018-04-11] MEDS: ASCORBIC ACID 250 MG TABLET (FP) PO SCH ×2 (10:18→21:11)
[2018-04-11] MEDS: HYDROCORTISONE 1% TOPICAL CREAM 30 GM TUBE TP SCH ×2 (10:18→21:12)
[2018-04-11] MEDS: hydrOXYzine PAMOATE 50 MG CAPSULE (FP) PO SCH ×2 (10:18→21:12)
--- NOTE | 2018-04-11 10:52 | PN ---
[facility] Progress Note Note: LABS BELOW APPRECIATED. NO FURTHER TREATMENT WARRANTED. Laboratory Tests 03/21/18 03/21/18 03/21/18 13:14 13:14 13:14 WBC 7.5 RBC 4.88 Hgb 14.5 Hct 41.7 MCV 85.3 MCH 29.8 MCHC 34.9 RDW 14.9 D Plt Count 235 MPV 8.5 Sodium 142 Potassium 4.0 Chloride 105 Carbon Dioxide 28 Anion Gap 9 BUN 16 Creatinine 1.2 Creat Clearance w eGFR > 60 Random Glucose 131 H Calcium 9.2 Total Bilirubin 0.3 AST 17 ALT 35 Alkaline Phosphatase 143 H Total Protein 7.3 Albumin 4.0 Urine Color Urine Appearance Urine pH Ur Specific [place] Urine Protein Urine Glucose (UA) Urine Ketones Urine Blood Urine Nitrite Urine Bilirubin Urine Urobilinogen Ur Leukocyte Esterase RPR Titer HSV I IgG Ab HSV II Inhibition IgG HIV 1&2 Antibody Screen Negative HIV P24 Antigen Negative 03/21/18 03/21/18 04/08/18 13:14 15:23 06:30 WBC RBC Hgb Hct MCV MCH MCHC RDW Plt Count MPV Sodium Potassium Chloride Carbon Dioxide Anion Gap BUN Creatinine Creat Clearance w eGFR Random Glucose Calcium Total Bilirubin AST ALT Alkaline Phosphatase Total Protein Albumin Urine Color Yellow Urine Appearance Clear Urine pH 5.0 Ur Specific [place] 1.026 Urine Protein Negative Urine Glucose (UA) Negative Urine Ketones Negative Urine Blood Negative Urine Nitrite Negative Urine Bilirubin Negative Urine Urobilinogen Negative Ur Leukocyte Esterase Negative RPR Titer Nonreactive HSV I IgG Ab 32.10 H HSV II Inhibition IgG <0.91 HIV 1&2 Antibody Screen HIV P24 Antigen
[2018-04-11] MEDS: traZODone HCL 100 MG TABLET (FP) PO SCH (21:11)
[2018-04-11] MEDS: THIAMINE HCL 100 MG TABLET (FP) PO SCH (21:11)
[2018-04-11] MEDS: MELATONIN 5 MG TABLETS PO PRN (21:12)
[2018-04-12] MEDS: BENZOYL PEROXIDE 5% 60 GM GEL..GRAM. TP SCH (09:33)
[2018-04-12] MEDS: PRENATAL VITAMINS W/ FOLIC ACID TABLET (FP) PO SCH (09:34)
[2018-04-12] MEDS: hydrOXYzine PAMOATE 50 MG CAPSULE (FP) PO SCH ×2 (09:34→21:49)
[2018-04-12] MEDS: SERTRALINE HCL 50 MG TABLET (FP) PO SCH (09:34)
[2018-04-12] MEDS: ASCORBIC ACID 250 MG TABLET (FP) PO SCH ×2 (09:34→21:49)
[2018-04-12] MEDS: NICOTINE 21 MG/24 HOURS TOPICAL PATCH TD SCH (09:35)
[2018-04-12] MEDS: HYDROCORTISONE 1% TOPICAL CREAM 30 GM TUBE TP SCH ×2 (09:37→21:50)
--- NOTE | 2018-04-12 11:19 | PN ---
[facility] Progress Note Note: NOTIFIED BY RN PATIENT CONTINUES TO C/O OF SORE THROAT DESPITE TREATMENT WITH ZPAK. WILL ORDER THROAT C/S, ENCOURAGE ORAL FLUIDS AND CONTINUE TO MONITOR CLINICALLY. Vital Signs Temperature 98 F 04/12/18 06:56 Pulse Rate 80 04/12/18 06:56 Respiratory Rate 18 04/12/18 06:56 Blood Pressure 142/78 04/12/18 06:56 O2 Sat by Pulse Oximetry (%)
[2018-04-12] MEDS: MELATONIN 5 MG TABLETS PO PRN (21:49)
[2018-04-12] MEDS: traZODone HCL 100 MG TABLET (FP) PO SCH (21:49)
[2018-04-12] MEDS: THIAMINE HCL 100 MG TABLET (FP) PO SCH (21:49)
[2018-04-13] MEDS ORDERED: PT OWN MED DRAWER 7, Y5N ONE ×2 (08:38→11:07)
[2018-04-13] MEDS: NICOTINE 21 MG/24 HOURS TOPICAL PATCH TD SCH (09:10)
[2018-04-13] MEDS: PRENATAL VITAMINS W/ FOLIC ACID TABLET (FP) PO SCH (09:10)
[2018-04-13] MEDS: SERTRALINE HCL 50 MG TABLET (FP) PO SCH (09:10)
[2018-04-13] MEDS: ASCORBIC ACID 250 MG TABLET (FP) PO SCH ×2 (09:10→21:11)
[2018-04-13] MEDS: hydrOXYzine PAMOATE 50 MG CAPSULE (FP) PO SCH ×2 (09:10→21:11)
[2018-04-13] MEDS: HYDROCORTISONE 1% TOPICAL CREAM 30 GM TUBE TP SCH ×2 (09:11→21:12)
[2018-04-13] MEDS: BENZOYL PEROXIDE 5% 60 GM GEL..GRAM. TP SCH (09:11)
[2018-04-13] MEDS: IBUPROFEN 600 MG TABLET (FP) PO PRN (09:12)
--- NOTE | 2018-04-13 11:16 | PN ---
[facility] Progress Note Note: PATIENT PRESENTS FOR LAB RESULTS. PATIENT HSV 1 32, HSV 2 0.91. PATIENT TREATED FOR COLD SORE OUT BREAK WITH VALTREX WHICH IMPROVED SYMPTOMS AND COLD SORE ON LIPS RESOLVED. CONTINUES TO C/O SORE THROAT AND THROAT C/S ORDERED. RESULTS PENDING. PATIENT DENIES COUGH, FEVER AND EARACHE. WILL FOLLOW UP RESULTS WHEN AVAILABLE. CONTINUE CEPASTAT AND SALT WATER GARGLES. Vital Signs Temperature 97.9 F 04/13/18 07:14 Pulse Rate 74 04/13/18 07:14 Respiratory Rate 18 04/13/18 07:14 Blood Pressure 130/75 04/13/18 07:14 O2 Sat by Pulse Oximetry (%)
[2018-04-13] MEDS: traZODone HCL 100 MG TABLET (FP) PO SCH (21:11)
[2018-04-13] MEDS: THIAMINE HCL 100 MG TABLET (FP) PO SCH (21:11)
[2018-04-13] MEDS: MELATONIN 5 MG TABLETS PO PRN (21:11)
[2018-04-14] MEDS: hydrOXYzine PAMOATE 50 MG CAPSULE (FP) PO SCH ×2 (10:51→21:32)
[2018-04-14] MEDS: PRENATAL VITAMINS W/ FOLIC ACID TABLET (FP) PO SCH (10:51)
[2018-04-14] MEDS: ASCORBIC ACID 250 MG TABLET (FP) PO SCH ×2 (10:51→21:31)
[2018-04-14] MEDS: HYDROCORTISONE 1% TOPICAL CREAM 30 GM TUBE TP SCH ×2 (10:51→22:03)
[2018-04-14] MEDS: BENZOYL PEROXIDE 5% 60 GM GEL..GRAM. TP SCH (10:51)
[2018-04-14] MEDS: SERTRALINE HCL 50 MG TABLET (FP) PO SCH (10:51)
[2018-04-14] MEDS: IBUPROFEN 600 MG TABLET (FP) PO PRN ×2 (10:52→16:57)
[2018-04-14] MEDS: NICOTINE 21 MG/24 HOURS TOPICAL PATCH TD SCH (10:52)
[2018-04-14] MEDS: BUPRENORPHINE/NALOXONE 2 MG/0.5 MG FILM PACKET SL SCH (11:28)
[2018-04-14] MEDS ORDERED: PT OWN MED DRAWER 7, Y5N ONE (11:28)
--- NOTE | 2018-04-14 12:55 | PN ---
[facility] COWS - Scale Resting Pulse: 0= [place] 80 or Below Sweatin= No chills or Flushing Restless Observation: 1= Difficult to Sit Still Pupil Size: 2= Moderately Dilated Bone or Joint Aches: 2= Severe Diffuse Aches Runny Nose/ Eye Tearin= Nasal Congestion GI Upset > 30mins: 0= None Tremor Observation of Outstretched Hands: 0= None Yawning Observation: 0= None Anxiety or Irritability: 2=Irritable/Anxious Goose Flesh Skin: 0=Smooth Skin COWS Score: 8 [facility] Progress Note (SOAP) Subjective: PATIENT REQUESTING TO BEGIN SUBOXONE MAT. PATIENT WAS IN MMTP IN PAST BUT RELAPSED AND LATER INCARCERATED. PATIENT REFERRED TO [facility] FOR COLOR CORRECTOR TREATMENT AND STATES " IF I LEAVE HERE TO A JAIL OR ON MY OWN I WILL RELAPSE ". Objective: 04/14/18 14:02 Vital Signs Temperature 97.9 F 04/14/18 06:50 Pulse Rate 71 04/14/18 06:50 Respiratory Rate 18 04/14/18 06:50 Blood Pressure 127/90 04/14/18 06:50 O2 Sat by Pulse Oximetry (%) PE: SKIN WARM AND DRY ALERT AND ORIENTED X 3 EXT FULL ROM, AMB AD JHONATAN ANXIOUS AND RESTLESS Assessment: 04/14/18 14:03 SUBOXONE MAT WITHDRAWAL SX Plan: WILL START INDUCTION TO SUBOXONE 2MG SL DAILY CONTINUE TO MONITOR CLINICALLY
[2018-04-14] MEDS: MELATONIN 5 MG TABLETS PO PRN (21:31)
[2018-04-14] MEDS: traZODone HCL 100 MG TABLET (FP) PO SCH (21:31)
[2018-04-14] MEDS: THIAMINE HCL 100 MG TABLET (FP) PO SCH (21:31)
[2018-04-15] MEDS ORDERED: PT OWN MED DRAWER 7, Y5N ONE (08:37)
[2018-04-15] MEDS: BENZOYL PEROXIDE 5% 60 GM GEL..GRAM. TP SCH (09:36)
[2018-04-15] MEDS: PRENATAL VITAMINS W/ FOLIC ACID TABLET (FP) PO SCH (09:36)
[2018-04-15] MEDS: hydrOXYzine PAMOATE 50 MG CAPSULE (FP) PO SCH ×2 (09:36→22:39)
[2018-04-15] MEDS: ASCORBIC ACID 250 MG TABLET (FP) PO SCH ×2 (09:36→22:39)
[2018-04-15] MEDS: NICOTINE 21 MG/24 HOURS TOPICAL PATCH TD SCH (09:36)
[2018-04-15] MEDS: SERTRALINE HCL 50 MG TABLET (FP) PO SCH (09:36)
[2018-04-15] MEDS: BUPRENORPHINE/NALOXONE 2 MG/0.5 MG FILM PACKET SL SCH (09:36)
[2018-04-15] MEDS: HYDROCORTISONE 1% TOPICAL CREAM 30 GM TUBE TP SCH ×2 (09:38→22:39)
[2018-04-15] MEDS: IBUPROFEN 600 MG TABLET (FP) PO PRN (13:42)
[2018-04-15] MEDS: MELATONIN 5 MG TABLETS PO PRN (22:39)
[2018-04-15] MEDS: traZODone HCL 100 MG TABLET (FP) PO SCH (22:39)
[2018-04-15] MEDS: THIAMINE HCL 100 MG TABLET (FP) PO SCH (22:39)
[2018-04-16] MEDS: PRENATAL VITAMINS W/ FOLIC ACID TABLET (FP) PO SCH (09:43)
[2018-04-16] MEDS: hydrOXYzine PAMOATE 50 MG CAPSULE (FP) PO SCH ×2 (09:43→21:40)
[2018-04-16] MEDS: BUPRENORPHINE/NALOXONE 2 MG/0.5 MG FILM PACKET SL SCH (09:43)
[2018-04-16] MEDS: SERTRALINE HCL 50 MG TABLET (FP) PO SCH (09:43)
[2018-04-16] MEDS: ASCORBIC ACID 250 MG TABLET (FP) PO SCH ×2 (09:44→21:39)
[2018-04-16] MEDS: IBUPROFEN 600 MG TABLET (FP) PO PRN (09:45)
[2018-04-16] MEDS: NICOTINE 21 MG/24 HOURS TOPICAL PATCH TD SCH (09:46)
[2018-04-16] MEDS: HYDROCORTISONE 1% TOPICAL CREAM 30 GM TUBE TP SCH ×2 (09:47→21:38)
[2018-04-16] MEDS: BENZOYL PEROXIDE 5% 60 GM GEL..GRAM. TP SCH (09:47)
[2018-04-16] MEDS ORDERED: FLU VACCINE QUAD 60 MCG/0.5 ML (MDV 18-19) IM ONE (12:47)
[2018-04-16] MEDS ORDERED: PT OWN MED DRAWER 7, Y5N ONE (19:37)
[2018-04-16] MEDS: traZODone HCL 100 MG TABLET (FP) PO SCH (21:39)
[2018-04-16] MEDS: ACETAMINOPHEN 325 MG TABLET (FP) PO PRN (21:40)
[2018-04-16] MEDS: MELATONIN 5 MG TABLETS PO PRN (21:40)
[2018-04-16] MEDS: THIAMINE HCL 100 MG TABLET (FP) PO SCH (21:40)
[2018-04-17] MEDS ORDERED: PT OWN MED DRAWER 7, Y5N ONE ×2 (08:36→20:22)
[2018-04-17] MEDS: NICOTINE 21 MG/24 HOURS TOPICAL PATCH TD SCH (09:50)
[2018-04-17] MEDS: BUPRENORPHINE/NALOXONE 2 MG/0.5 MG FILM PACKET SL SCH (09:50)
[2018-04-17] MEDS: ASCORBIC ACID 250 MG TABLET (FP) PO SCH ×2 (09:50→21:58)
[2018-04-17] MEDS: PRENATAL VITAMINS W/ FOLIC ACID TABLET (FP) PO SCH (09:51)
[2018-04-17] MEDS: hydrOXYzine PAMOATE 50 MG CAPSULE (FP) PO SCH ×2 (09:51→21:58)
[2018-04-17] MEDS: SERTRALINE HCL 50 MG TABLET (FP) PO SCH (09:51)
[2018-04-17] MEDS: HYDROCORTISONE 1% TOPICAL CREAM 30 GM TUBE TP SCH ×2 (09:51→22:00)
[2018-04-17] MEDS: BENZOYL PEROXIDE 5% 60 GM GEL..GRAM. TP SCH (09:51)
[2018-04-17] MEDS: IBUPROFEN 600 MG TABLET (FP) PO PRN ×2 (14:17→21:59)
[2018-04-17] MEDS: MELATONIN 5 MG TABLETS PO PRN (21:57)
[2018-04-17] MEDS: THIAMINE HCL 100 MG TABLET (FP) PO SCH (21:58)
[2018-04-17] MEDS: traZODone HCL 100 MG TABLET (FP) PO SCH (21:58)
[2018-04-18] MEDS ORDERED: PT OWN MED DRAWER 7, Y5N ONE (08:54)
[2018-04-18] MEDS: BENZOYL PEROXIDE 5% 60 GM GEL..GRAM. TP SCH (09:38)
[2018-04-18] MEDS: ASCORBIC ACID 250 MG TABLET (FP) PO SCH ×2 (09:38→21:46)
[2018-04-18] MEDS: hydrOXYzine PAMOATE 50 MG CAPSULE (FP) PO SCH ×2 (09:38→21:46)
[2018-04-18] MEDS: HYDROCORTISONE 1% TOPICAL CREAM 30 GM TUBE TP SCH ×2 (09:38→21:46)
[2018-04-18] MEDS: SERTRALINE HCL 50 MG TABLET (FP) PO SCH (09:38)
[2018-04-18] MEDS: BUPRENORPHINE/NALOXONE 2 MG/0.5 MG FILM PACKET SL SCH (09:38)
[2018-04-18] MEDS: NICOTINE 21 MG/24 HOURS TOPICAL PATCH TD SCH (09:38)
[2018-04-18] MEDS: PRENATAL VITAMINS W/ FOLIC ACID TABLET (FP) PO SCH (09:38)
[2018-04-18] MEDS: IBUPROFEN 600 MG TABLET (FP) PO PRN (16:59)
[2018-04-18] MEDS: THIAMINE HCL 100 MG TABLET (FP) PO SCH (21:46)
[2018-04-18] MEDS: traZODone HCL 100 MG TABLET (FP) PO SCH (21:46)
[2018-04-18] MEDS: MELATONIN 5 MG TABLETS PO PRN (21:47)
[2018-04-19] MEDS: SERTRALINE HCL 50 MG TABLET (FP) PO SCH (09:37)
[2018-04-19] MEDS: hydrOXYzine PAMOATE 50 MG CAPSULE (FP) PO SCH ×2 (09:37→21:10)
[2018-04-19] MEDS: PRENATAL VITAMINS W/ FOLIC ACID TABLET (FP) PO SCH (09:37)
[2018-04-19] MEDS: NICOTINE 21 MG/24 HOURS TOPICAL PATCH TD SCH (09:38)
[2018-04-19] MEDS: BENZOYL PEROXIDE 5% 60 GM GEL..GRAM. TP SCH (09:38)
[2018-04-19] MEDS: HYDROCORTISONE 1% TOPICAL CREAM 30 GM TUBE TP SCH ×2 (09:38→21:56)
[2018-04-19] MEDS: ASCORBIC ACID 250 MG TABLET (FP) PO SCH ×2 (09:38→21:11)
[2018-04-19] MEDS: BUPRENORPHINE/NALOXONE 2 MG/0.5 MG FILM PACKET SL SCH ×2 (09:38→17:20)
--- NOTE | 2018-04-19 13:30 | PN ---
[facility] COWS - Scale Resting Pulse: 0= [place] 80 or Below Sweatin= Chills/Flushing Restless Observation: 1= Difficult to Sit Still Pupil Size: 0= Normal to Room Light Bone or Joint Aches: 1= Mild Discomfort Runny Nose/ Eye Tearin= None GI Upset > 30mins: 0= None Tremor Observation of Outstretched Hands: 0= None Yawning Observation: 0= None Anxiety or Irritability: 1=Feels Anxious/Irritable Goose Flesh Skin: 0=Smooth Skin COWS Score: 4 [facility] Progress Note (SOAP) Subjective: PT REPORTS CRAVINGS AND REQUESTING INCREASED SUBOXONE DOSE. Objective: 04/19/18 13:33 Vital Signs 04/19/18 06:54 Temperature 98 F Pulse Rate 73 Respiratory 18 Rate Blood Pressure 107/74 Assessment: 04/19/18 13:33 WITHDRAWAL SX Plan: INCREASE SUBOXONE TO 4 MG/1 MG SL BID RE-EVALUATE PT NEEDED.
[2018-04-19] MEDS: IBUPROFEN 600 MG TABLET (FP) PO PRN ×2 (13:46→21:12)
[2018-04-19] MEDS: THIAMINE HCL 100 MG TABLET (FP) PO SCH (21:10)
[2018-04-19] MEDS: MELATONIN 5 MG TABLETS PO PRN (21:11)
[2018-04-19] MEDS: traZODone HCL 100 MG TABLET (FP) PO SCH (21:11)
[2018-04-20] MEDS: ASCORBIC ACID 250 MG TABLET (FP) PO SCH ×2 (09:55→21:55)
[2018-04-20] MEDS: PRENATAL VITAMINS W/ FOLIC ACID TABLET (FP) PO SCH (09:55)
[2018-04-20] MEDS: SERTRALINE HCL 50 MG TABLET (FP) PO SCH (09:55)
[2018-04-20] MEDS: NICOTINE 21 MG/24 HOURS TOPICAL PATCH TD SCH (09:56)
[2018-04-20] MEDS: hydrOXYzine PAMOATE 50 MG CAPSULE (FP) PO SCH ×2 (09:56→21:55)
[2018-04-20] MEDS: BUPRENORPHINE/NALOXONE 2 MG/0.5 MG FILM PACKET SL SCH ×2 (09:56→17:38)
[2018-04-20] MEDS: BENZOYL PEROXIDE 5% 60 GM GEL..GRAM. TP SCH (09:56)
[2018-04-20] MEDS: HYDROCORTISONE 1% TOPICAL CREAM 30 GM TUBE TP SCH ×2 (09:56→21:56)
[2018-04-20] MEDS: IBUPROFEN 600 MG TABLET (FP) PO PRN ×2 (15:39→21:54)
[2018-04-20] MEDS ORDERED: PT OWN MED DRAWER 7, Y5N ONE (19:21)
[2018-04-20] MEDS: MELATONIN 5 MG TABLETS PO PRN (21:54)
[2018-04-20] MEDS: THIAMINE HCL 100 MG TABLET (FP) PO SCH (21:55)
[2018-04-20] MEDS: traZODone HCL 100 MG TABLET (FP) PO SCH (21:55)
--- NOTE | 2018-04-21 08:02 | PN ---
Psychiatric Progress Note Vital Signs: Vital Signs Period Temp Pulse Resp BP Sys/Hancock Pulse Ox Last 24 Hr 97.8 F 73 16-18 122/75 Date of Session: 04/21/18 Chief Complaint:: Discharge Note HPI: Patient addressing Opioid, Cocaine and Sedative Dependence comorbid with Nicotine Dependence, ADHD and Mood Disorder ROS: GERD, COPD, Arthritis both hands 7 both knees Current Medications: Active Medications Generic Name Dose Route Start Last Admin Trade Name Freq PRN Reason Stop Dose Admin Acetaminophen 650 mg 03/21/18 12:49 04/16/18 21:40 Tylenol - PO 650 mg Q4H PRN Administration FEVER Al Hydroxide/Mg Hydroxide 30 ml 03/21/18 12:49 Mylanta Oral Suspension - PO Q6H PRN DYSPEPSIA Ascorbic Acid 250 mg 04/03/18 13:45 04/20/18 21:55 Vitamin C - PO 250 mg BID ABIMAEL Administration Benzoyl Peroxide 1 applic 04/01/18 10:00 04/20/18 09:56 Benzoyl Peroxide 5% Gel - TP Not Given DAILY ABIMAEL Buprenorphine/Naloxone 2 each 04/19/18 18:00 04/20/18 17:38 Suboxone 2mg/0.5mg Sl Film - SL 2 each BID@1000,1800 ABIMAEL Administration Eucalyptus/Menthol/Phenol/Sorbitol 1 each 03/21/18 12:49 04/07/18 09:47 Cepastat Lozenge - MM 1 each Q4H PRN Administration SORE THROAT Guaifenesin 10 ml 03/21/18 12:49 Robitussin Dm - PO Q6H PRN COUGH Hydrocortisone 1 applic 03/23/18 10:30 04/20/18 21:56 Hytone 1% Cream - TP Not Given BID ABIMAEL Hydroxyzine Pamoate 50 mg 04/07/18 10:00 04/20/18 09:56 Vistaril - PO 50 mg DAILY ABIMAEL Administration Hydroxyzine Pamoate 100 mg 04/06/18 22:00 04/20/18 21:55 Vistaril - PO 100 mg HS ABIMAEL Administration Ibuprofen 600 mg 03/31/18 12:05 04/20/18 21:54 Motrin - PO 600 mg Q6H PRN Administration Pain level 4-6 Lidocaine HCl 20 ml 04/03/18 13:37 04/08/18 10:59 Xylocaine 2% Viscous Oral - MM 20 ml Q6HPO PRN Administration ORAL PAIN/MOUTH SORES Loperamide HCl 4 mg 03/21/18 12:49 Imodium - PO Q6H PRN DIARRHEA Magnesium Citrate 300 ml 03/21/18 12:49 Citroma - PO Q48H PRN CONSTIPATION Magnesium Hydroxide 30 ml 03/21/18 12:49 Milk Of Magnesia - PO DAILY PRN CONSTIPATION Melatonin 5 mg 03/21/18 22:00 04/20/18 21:54 Melatonin PO 5 mg HS PRN Administration INSOMNIA Nicotine 21 mg 03/21/18 14:15 04/20/18 09:56 Nicoderm Patch - TD 21 mg DAILY ABIMAEL Administration Multivit/Folic Acid/Iron 1 tab 03/22/18 10:00 04/20/18 09:55 Vitamins (Sjr) - PO 1 tab DAILY ABIMAEL Administration Pseudoephedrine/Triprolidine 1 combo 03/21/18 12:49 Actifed - PO TID PRN NASAL CONGESTION Sertraline HCl 100 mg 03/31/18 10:00 04/20/18 09:55 Zoloft - PO 100 mg DAILY ABIMAEL Administration Thiamine HCl 100 mg 03/21/18 22:00 04/20/18 21:55 Vitamin B1 - PO 100 mg HS ABIMAEL Administration Trazodone HCl 100 mg 03/21/18 22:00 04/20/18 21:55 Desyrel - PO 100 mg HS ABIMAEL Administration Current Side Effect: No Lab tests ordered: Yes Lab tests reviewed: Yes Provider note:: Patient will complete this program on 04/22/18. He has met his treatment goals and will continue to address his issues in extermination inspector residential treatment at [facility]. Told check writer that from his participation in this program, he has learned the importance of making meetings and get a sponsor. He responded well to Zoloft 100 mg po daily and Trazadone 100 mg po HS. Scripts for 30 days supply of these medications will be electronically transmitted to [facility] at [address] [place] [address]. He is stable for disharge on 04/22/18 Total face to face time:: 35 Mental Status Exam - Mental Status Exam Alert and Oriented to: Time, Place, Person Cognitive Function: Fair Patient Appearance: Well Groomed Mood: Hopeful, Euthymic Affect: Appropriate Patient Behavior: Cooperative Speech Pattern: Garbled Voice Loudness: Normal Thought Process: Intact, Goal Oriented Thought Disorder: Not Present Hallucinations: Denies Suicidal Ideation: Denies Homicidal Ideation: Denies Insight/Judgement: Fair Sleep: Fair Appetite: Good Muscle strength/Tone: Normal Gait/Station: Normal Psychiatric Treatment Plan - Problem List (1) Opioid dependence Current Visit: Yes Comment: . (2) Cocaine dependence Current Visit: Yes Qualifiers: Substance use status: uncomplicated Qualified Code(s): F14.20 - Cocaine dependence, uncomplicated Comment: . (3) Sedative hypnotic or anxiolytic dependence Current Visit: Yes Comment: . (4) Nicotine dependence Current Visit: Yes Qualifiers: Nicotine product type: cigarettes Substance use status: in withdrawal Qualified Code(s): F17.213 - Nicotine dependence, cigarettes, with withdrawal Comment: . (5) ADHD (attention deficit hyperactivity disorder) Current Visit: Yes (6) Mood disorder Current Visit: Yes (7) MDD (major depressive disorder) Current Visit: Yes Qualifiers: Major depression recurrence: recurrent Active/Remission status: remission status unspecified Qualified Code(s): F33.9 - Major depressive disorder, recurrent, unspecified Comment: . (8) CONCEPCION (generalized anxiety disorder) Current Visit: No Comment: As per records. (9) GERD (gastroesophageal reflux disease) Current Visit: Yes (10) COPD (chronic obstructive pulmonary disease) Current Visit: Yes (11) Arthritis of both hands Current Visit: Yes (12) Arthritis of both knees Current Visit: Yes Initial treatment plan: Patient will be discharged tomorrow and referred to [facility] for extermination inspector residential treatment
[2018-04-21] MEDS: ASCORBIC ACID 250 MG TABLET (FP) PO SCH ×2 (09:16→21:51)
[2018-04-21] MEDS: SERTRALINE HCL 50 MG TABLET (FP) PO SCH (09:16)
[2018-04-21] MEDS: IBUPROFEN 600 MG TABLET (FP) PO PRN (09:16)
[2018-04-21] MEDS: hydrOXYzine PAMOATE 50 MG CAPSULE (FP) PO SCH ×2 (09:16→21:51)
[2018-04-21] MEDS: PRENATAL VITAMINS W/ FOLIC ACID TABLET (FP) PO SCH (09:16)
[2018-04-21] MEDS: NICOTINE 21 MG/24 HOURS TOPICAL PATCH TD SCH (09:17)
[2018-04-21] MEDS: BUPRENORPHINE/NALOXONE 2 MG/0.5 MG FILM PACKET SL SCH ×2 (09:17→17:25)
[2018-04-21] MEDS: HYDROCORTISONE 1% TOPICAL CREAM 30 GM TUBE TP SCH ×2 (11:00→21:52)
[2018-04-21] MEDS: BENZOYL PEROXIDE 5% 60 GM GEL..GRAM. TP SCH (11:00)
[2018-04-21] MEDS: THIAMINE HCL 100 MG TABLET (FP) PO SCH (21:51)
[2018-04-21] MEDS: MELATONIN 5 MG TABLETS PO PRN (21:51)
[2018-04-21] MEDS: traZODone HCL 100 MG TABLET (FP) PO SCH (21:51)
[2018-04-22 06:40] VITALS: BP 143/78; PULSE 79; TEMP 97.6
--- NOTE | 2018-04-22 12:12 | PN ---
[facility] Progress Note Note: REHAB COMPLETED. DISCHARGED TODAY AND REFERRED TO [facility]. Vital Signs 04/22/18 06:39 Temperature 97.6 F Pulse Rate 79 Respiratory 18 Rate Blood Pressure 143/78 NAD PLAN;FOLLOW UP WITH AFTERCARE RECOMMENDED. RX FOR SUBOXONE DIRECTED FOR 7 DAYS SENT TO [facility]NAGER.
== END 2018-04-22 08:35 | disposition home or self-care (01) | DRG 772 ==
LOC: YASAS 10:10 → Y3W 13:14
PROVIDERS: ADMIT Psychiatry & Neurology Psychiatry; ATTEND Psychiatry & Neurology Psychiatry
PROC: HZ42ZZZ Group Counseling for Substance Abuse Treatment, Cognitive-Behavioral (ICD-10-PCS; principal; 2018-04-20)
DX: F11.20 Opioid dependence, uncomplicated (principal); F13.20 Sedative, hypnotic or anxiolytic dependence, uncomplicated; F14.20 Cocaine dependence, uncomplicated; F17.213 Nicotine dependence, cigarettes, with withdrawal; F90.9 Attention-deficit hyperactivity disorder, unspecified type; F39 Unspecified mood [affective] disorder; F33.9 Major depressive disorder, recurrent, unspecified; F41.1 Generalized anxiety disorder; F19.24 Other psychoactive substance dependence with psychoactive substance-induced mood disorder; I10 Essential (primary) hypertension; K21.9 Gastro-esophageal reflux disease without esophagitis; J43.9 Emphysema, unspecified; R21 Rash and other nonspecific skin eruption; M13.842 Other specified arthritis, left hand; M13.841 Other specified arthritis, right hand; M17.0 Bilateral primary osteoarthritis of knee; G47.00 Insomnia, unspecified; J02.9 Acute pharyngitis, unspecified; K13.79 Other lesions of oral mucosa; R05 Cough; J06.9 Acute upper respiratory infection, unspecified; Z86.69 Personal history of other diseases of the nervous system and sense organs; Z91.013 Allergy to seafood; Z88.1 Allergy status to other antibiotic agents
CPT/HCPCS: 36415; 80053; 81003; 85027; 86593; 86695; 86696; 87070; 87389; 90688; 93005; 93010

== ENCOUNTER 2018-05-03 08:58 | Inpatient (IN) | payer OTHER ==
[2018-05-03 09:37] VITALS: BMI 34.2
--- NOTE | 2018-05-03 10:01 | HP ---
COWS - Scale Resting Pulse: 1= NM 81-100 Sweatin= Chills/Flushing Restless Observation: 1= Difficult to Sit Still Pupil Size: 1= Pupils >than Normal Bone or Joint Aches: 2= Severe Diffuse Aches Runny Nose/ Eye Tearin= Runny Nose/Eyes GI Upset > 30mins: 2= Nausea/Diarrhea Tremor Observation: 2= Slight Tremor Visible Yawning Observation: 1= 1-2x During Session Anxiety or Irritability: 2=Irritable/Anxious Goose Flesh Skin: 0=Smooth Skin COWS Score: 15 CIWA Score - Admission Criteria OASAS Guidelines: Admission for Medically Managed Detox: Requires at least one of the followin. CIWA greater than 12 2. Seizures within the past 24 hours 3. Delirium tremens within the past 24 hours 4. Hallucinations within the past 24 hours 5. Acute intervention needed for co occurring medical disorder 6. Acute intervention needed for co occurring psychiatric disorder 7. Severe withdrawal that cannot be handled at a lower level of care (continued vomiting, continued diarrhea, abnormal vital signs) requiring intravenous medication and/or fluids 8. Admission ROS [facility] Chief Complaint: I need help to stop using heroin and crack Allergies/Adverse Reactions: Allergies Allergy/AdvReac Type Severity Reaction Status Date / Time amoxicillin [From Augmentin] Allergy Severe Difficulty Verified 05/03/18 10:18 Breathing clavulanic acid Allergy Severe Difficulty Verified 05/03/18 10:18 [From Augmentin] Breathing Fish Containing Products Allergy Severe Difficulty Verified 05/03/18 10:18 Breathing augumentin Allergy Severe Difficulty Uncoded 05/03/18 10:18 Breathing History of Present Illness: This 43 years old male with heroin and crack dependence,seeking detox, withdrawal symptom,last treatment in [facility]hab 03/21/18 to 04/22/18 has legal issue ,mandate to go for treatment seizure 30 years ago nicotine dependence anxiety,depression,adhd on suboxone sl 8mgs/2mgs sl film for 7 days from 04/22/18 longest period of sobriety 2 years Exam Limitations: No Limitations - Ebola screening Have you traveled outside of the country in the last 21 days: No (N) Have you had contact with anyone from an Ebola affected area: No Have you been sick,other than usual withdrawal symptoms: No Do you have a fever: No - Review of Systems Constitutional: Chills, Loss of Appetite, Malaise, Night Sweats, Changes in sleep, Weakness EENT: reports: Tearing, Nose Congestion Respiratory: reports: No Symptoms reported Cardiac: reports: No Symptoms Reported GI: reports: Nausea, Poor Appetite, Vomiting, Abdominal cramping : reports: No Symptoms Reported Musculoskeletal: reports: Back Pain, Joint Pain, Muscle Pain, Joint Stiffness Integumentary: reports: Dryness Neuro: reports: Headache, Tremors Endocrine: reports: No Symptoms Reported Hematology: reports: No Symptoms Reported Psychiatric: reports: No Sypmtoms Reported, Judgement Intact, Mood/Affect Appropiate, Orientated x3, Anxious (adhd), Depressed, other Patient History - Patient Medical History Hx Anemia: No Hx Asthma: No Hx Chronic Obstructive Pulmonary Disease (COPD): No Hx Cancer: No Hx Cardiac Disorders: No Hx Congestive Heart Failure: No Hx Hypertension: No Hx Hypercholesterolemia: No Hx Pacemaker: No HX Cerebrovascular Accident: No Hx Seizures: No Hx Dementia: No Hx Diabetes: No Hx Gastrointestinal Disorders: Yes (acid reflux no med) Hx Liver Disease: No Hx Genitourinary Disorders: No Hx Sexually Transmitted Disorders: No Hx Renal Disease (ESRD): No Hx Thyroid Disease: No Hx Human Immunodeficiency Virus (HIV): No (01/18 negative) Hx Hepatitis C: No (negative in 01/18) Hx Depression: Yes (anxiety) Hx Suicide Attempt: No Hx Bipolar Disorder: No Hx Schizophrenia: No Other Medical History: adhd,no suicidal,no homicidal,coughing with yellowish mucous for 1 week - Patient Surgical History Past Surgical History: Yes Hx Neurologic Surgery: No Hx Cataract Extraction: No Hx Cardiac Surgery: No Hx Lung Surgery: No Hx Breast Surgery: No Hx Breast Biopsy: No Hx Abdominal Surgery: No Hx Appendectomy: No Hx Cholecystectomy: No Hx Genitourinary Surgery: No Hx Section: No Hx Orthopedic Surgery: No Other Surgical History: left arm abscess surgery secondary to heroin use Anesthesia Reaction: No - PPD History Previous Implant?: Yes Documented Results: Negative w/proof Implanted On Prior [facility] Admission?: Yes Date: 06/10/17 Results: 0 mm PPD to be Administered?: No - Smoking Cessation Smoking history: Current every day smoker Have you smoked in the past 12 months: Yes Aproximately how many cigarettes per day: 20 Hx Chewing Tobacco Use: No Initiated information on smoking cessation: Yes 'Breaking Loose' booklet given: 05/03/18 - Substance & Tx. History Hx Alcohol Use: No Hx Substance Use: Yes Substance Use Type: Cocaine, Heroin Hx Substance Use Treatment: Yes ([facility] 03/21/18 to 04/22/18) - Substances Abused Heroin Route: Injection Frequency: Daily Amount used: 3 bags Age of first use: 35 Date of Last Use: 05/02/18 Cocaine Route: Smoking Frequency: 1-3 times last 30 days Amount used: 100$ Age of first use: 31 Date of Last Use: 05/01/18 Family Disease History - Family Disease History Family Disease History: Other: Father (Alcoholic,) Admission Physical Exam BHS - Vital Signs Vital Signs: Vital Signs - 24 hr 05/03/18 09:28 Temperature 98.4 F Pulse Rate 98 H Respiratory 20 Rate Blood Pressure 115/74 - Physical General Appearance: Yes: Moderate Distress, Tremorous, Irritable, Sweating, Anxious HEENTM: Yes: Normal ENT Inspection, ALEXANDRA, Pharynx Normal Respiratory: Yes: Lungs Clear, Normal Breath Sounds, No Respiratory Distress Neck: Yes: Within Normal Limits, Supple, Trachea in good position Breast: Yes: Within Normal Limits Cardiology: Yes: Within Normal Limits, Regular Rhythm, Regular Rate, S1, S2 Abdominal: Yes: Within Normal Limits, Normal Bowel Sounds, Non Tender, Flat, Soft Genitourinary: Yes: Within Normal Limits Back: Yes: Muscle Spasm Musculoskeletal: Yes: full range of Motion, Back pain, Joint Stiffness, Muscle Pain Extremities: Yes: Within Normal Limits, Normal Range of Motion, Tremors Neurological: Yes: timber rider II-XII NML intact, Fully Oriented, Alert, Motor Strength 5/5 Integumentary: Yes: Dry, Track Poon, Other (scar in left forearm) Lymphatic: Yes: Within Normal Limits - Diagnostic (1) Opioid dependence with withdrawal Current Visit: No Status: Acute (2) Anxiety and depression Current Visit: No Status: Acute (3) Cocaine dependence Current Visit: No Status: Acute Qualifiers: Substance use status: uncomplicated Qualified Code(s): F14.20 - Cocaine dependence, uncomplicated Comment: . (4) Dehydration Current Visit: No Status: Acute (5) ADHD (attention deficit hyperactivity disorder) Current Visit: No Status: Chronic (6) Nicotine dependence Current Visit: No Status: Chronic Qualifiers: Nicotine product type: cigarettes Substance use status: in withdrawal Qualified Code(s): F17.213 - Nicotine dependence, cigarettes, with withdrawal Comment: . (7) COPD (chronic obstructive pulmonary disease) Current Visit: No Status: Chronic (8) Seizures Current Visit: No Status: Suspected (9) Bronchitis Current Visit: Yes Status: Acute Cleared for Admission S - Detox or Rehab S Level of Care: Medically Managed Detox Regimen/Protocol: Methadone S Breath Alcohol Content Breath Alcohol Content: 0 Urine Drug Screen - Results Drug Screen Negative: No Urine Drug Screen Results: OPI-Opiates, BAR-Barbiturates, FEN-Fentanyl, BUP- Suboxone
[2018-05-03] MEDS ORDERED: LOPERAMIDE HCL 2 MG CAPSULE PO PRN (10:15)
[2018-05-03] MEDS ORDERED: MAGNESIUM HYDROX 2400MG/30ML ORAL SUSPENSION 30 ML CUP PO PRN (10:15)
[2018-05-03] MEDS ORDERED: ACETAMINOPHEN 325 MG TABLET (FP) PO PRN (10:15)
[2018-05-03] MEDS ORDERED: MAGNESIUM CITRATE 300 ML BOTTLE PO PRN (10:15)
[2018-05-03] MEDS ORDERED: P-EPHED 60MG/TRIPROLIDI 2.5MG TABLET PO PRN (10:15)
[2018-05-03] MEDS ORDERED: guaiFENesin/D-METHORPHAN HB 10 ML UNIT-DOSE CUPS PO PRN (10:15)
[2018-05-03] MEDS ORDERED: MENTHOL/PHENOL 1 EACH UD MM PRN (10:15)
[2018-05-03] MEDS ORDERED: MAG HYDROX/AL HYDROX/SIMETH 30 ML UNIT-DOSE CUP PO PRN (10:15)
[2018-05-03] MEDS ORDERED: AZITHROMYCIN 500 MG TABLET PO ONE (10:19)
[2018-05-03] MEDS ORDERED: ALBUTEROL SO4 8 GM HFA INHALER IH PRN (10:21)
[2018-05-03] MEDS ORDERED: AZITHROMYCIN 250 MG TABLET PO ONE (10:30)
[2018-05-03] MEDS ORDERED: METHADONE HCL 10 MG TABLET (FOR DETOX USE ONLY) PO ONE ×2 (10:30→23:00)
[2018-05-03] MEDS: diazePAM 5 MG TABLET PO PRN ×2 (11:49→19:40)
[2018-05-03] MEDS: NICOTINE 21 MG/24 HOURS TOPICAL PATCH TD SCH (11:49)
[2018-05-03] MEDS: MELATONIN 5 MG TABLETS PO PRN (22:14)
[2018-05-03] MEDS: THIAMINE HCL 100 MG TABLET (FP) PO SCH (22:14)
[2018-05-04] MEDS: diazePAM 5 MG TABLET PO PRN ×6 (01:20→22:59)
[2018-05-04] MEDS ORDERED: METHADONE HCL 10 MG TABLET (FOR DETOX USE ONLY) PO ONE (10:00)
[2018-05-04 10:03] LABS: HEMATOCRIT 38.9 % (35.4-49); HEMOGLOBIN 12.8 GM/dL (11.7-16.9); MCH 28.6 pg (25.7-33.7); MEAN CELL VOLUME 86.8 fl (80-96); MEAN PLT VOLUME 7.8 fl (7.5-11.1); PLATELET COUNT 218 K/MM3 (134-434); RBC 4.48 M/mm3 (4.00-5.60); RDW 14.2 % (11.9-15.9)
[2018-05-04] MEDS: NICOTINE 21 MG/24 HOURS TOPICAL PATCH TD SCH (10:25)
[2018-05-04] MEDS: AZITHROMYCIN 250 MG TABLET PO SCH (10:25)
[2018-05-04] MEDS: PRENATAL VITAMINS W/ FOLIC ACID TABLET (FP) PO SCH (10:25)
--- NOTE | 2018-05-04 10:28 | PN ---
S COWS - Scale Resting Pulse: 0= RI 80 or Below Sweatin= Chills/Flushing Restless Observation: 1= Difficult to Sit Still Pupil Size: 1= Pupils >than Normal Bone or Joint Aches: 2= Severe Diffuse Aches Runny Nose/ Eye Tearin= Nasal Congestion GI Upset > 30mins: 2= Nausea/Diarrhea Tremor Observation of Outstretched Hands: 2= Slight Tremor Visible Yawning Observation: 1= 1-2x During Session Anxiety or Irritability: 1=Feels Anxious/Irritable Goose Flesh Skin: 0=Smooth Skin COWS Score: 12 S Progress Note (SOAP) Subjective: muscle crampig joints pain tremor sweat Objective: 05/04/18 12:06 Vital Signs Temperature 97.4 F L 05/04/18 10:51 Pulse Rate 73 05/04/18 10:51 Respiratory Rate 18 05/04/18 10:51 Blood Pressure 98/55 L 05/04/18 10:51 O2 Sat by Pulse Oximetry (%) Laboratory Last Values WBC 5.0 K/mm3 (4.0-10.0) 05/04/18 08:00 RBC 4.48 M/mm3 (4.00-5.60) 05/04/18 08:00 Hgb 12.8 GM/dL (11.7-16.9) 05/04/18 08:00 Hct 38.9 % (35.4-49) 05/04/18 08:00 MCV 86.8 fl (80-96) 05/04/18 08:00 MCH 28.6 pg (25.7-33.7) 05/04/18 08:00 MCHC 33.0 g/dl (32.0-35.9) 05/04/18 08:00 RDW 14.2 % (11.9-15.9) 05/04/18 08:00 Plt Count 218 K/MM3 (134-434) 05/04/18 08:00 MPV 7.8 fl (7.5-11.1) 05/04/18 08:00 Sodium 141 mmol/L (136-145) 05/04/18 08:00 Potassium 4.0 mmol/L (3.5-5.1) 05/04/18 08:00 Chloride 106 mmol/L (98-107) 05/04/18 08:00 Carbon Dioxide 28 mmol/L (21-32) 05/04/18 08:00 Anion Gap 6 MMOL/L (8-16) L 05/04/18 08:00 BUN 10 mg/dL (7-18) 05/04/18 08:00 Creatinine 1.0 mg/dL (0.55-1.3) 05/04/18 08:00 Creat Clearance w eGFR > 60 (>60) 05/04/18 08:00 Random Glucose 87 mg/dL (74-106) 05/04/18 08:00 Calcium 8.1 mg/dL (8.5-10.1) L 05/04/18 08:00 Total Bilirubin 0.3 mg/dL (0.2-1) 05/04/18 08:00 AST 25 U/L (15-37) 05/04/18 08:00 ALT 29 U/L (13-61) 05/04/18 08:00 Alkaline Phosphatase 121 U/L (45-117) H 05/04/18 08:00 Total Protein 6.1 g/dl (6.4-8.2) L 05/04/18 08:00 Albumin 3.3 g/dl (3.4-5.0) L 05/04/18 08:00 RPR Titer Nonreactive (NONREACTIVE) 05/04/18 08:00 lab noted low ca++ 05/04/18 12:07 Assessment: 05/04/18 12:07 withdrawal sx hypocalcemia Plan: continue detox oscal bid
[2018-05-04 11:28] LABS: ALBUMIN 3.3 g/dl (3.4-5.0); ALK PHOS 121 U/L (45-117); ANION GAP 6 MMOL/L (8-16); BILIRUBIN,TOTAL 0.3 mg/dL (0.2-1); BLOOD UREA NITROGEN 10 mg/dL (7-18); CALCIUM 8.1 mg/dL (8.5-10.1); CHLORIDE 106 mmol/L (98-107); CO2 28 mmol/L (21-32); GLUCOSE,RANDOM 87 mg/dL (74-106); SGOT/AST 25 U/L (15-37); SGPT/ALT 29 U/L (13-61); SODIUM 141 mmol/L (136-145); TOT PROT 6.1 g/dl (6.4-8.2)
[2018-05-04] MEDS: IBUPROFEN 400 MG TABLET (FP) PO PRN (12:51)
[2018-05-04] MEDS: CALCIUM 250MG/VIT-D 125 UNITS 1 COMBO TABLET PO SCH ×2 (15:08→22:24)
[2018-05-04] MEDS: THIAMINE HCL 100 MG TABLET (FP) PO SCH (22:24)
[2018-05-04] MEDS: MELATONIN 5 MG TABLETS PO PRN (22:59)
[2018-05-05] MEDS: diazePAM 5 MG TABLET PO PRN ×5 (03:03→22:10)
--- NOTE | 2018-05-05 09:43 | CONSULT ---
[facility] Psychiatric Consult - Data Date of interview: 05/05/17 Admission source: [facility] Identifying data: Patient is a 43 year old single male, without children, unemployed, homeless, and not receiving financial assistance. This is one of multiple admissions for patient. Patient admitted to for opiate dependence. Substance Abuse History: Smoking Cessation. Smoking history: Current every day smoker. Have you smoked in the past 12 months: Yes. Aproximately how many cigarettes per day: 20. Hx Chewing Tobacco Use: No. Initiated information on smoking cessation: Yes. 'Breaking Loose' booklet given: 05/03/18. - Substance & Tx. History. Hx Alcohol Use: No. Hx Substance Use: Yes. Substance Use Type : Cocaine, Heroin. Hx Substance Use Treatment: Yes ([facility] 03/21/18 to ). - Substances Abused. Heroin. Route: Injection. Frequency: Daily. Amount used: 3 bags. Age of first use: 35. Date of Last Use: 05/02/18. Cocaine. Route: Smoking. Frequency: 1-3 times last 30 days. Amount used: 100$ . Age of first use: 31. Date of Last Use: 05/01/18 Medical History: Significant for GERD, withdrawal-related seizures, hypertension and emphysema, arthritis both hands/knees and history of surgery for I&D left arm abscess due to heroin use Psychiatric History: Patient denies h/o psychiatric hospitalizations. He reports sporadic psychiatric outpatient treatment throughout the years. Mr. Berman has a chronic history of nonadherence to medications and outpatient psychiatric care. He was recently discharged from rehab on 3W on 04/21/18 and was prescribed zoloft 100mg and Trazodone 100mg. H/O ADHD. Most recent outpatient psychiatric care was provided by Dr. jean in the methadone clinic several month ago. Patient denies h/o suicide attempt. Physical/Sexual Abuse/Trauma History: Denies. Mental Status Exam - Mental Status Exam Alert and Oriented to: Time, Place, Person Cognitive Function: Good Patient Appearance: Well Groomed Mood: Euthymic Affect: Mood Congruent Patient Behavior: Cooperative Speech Pattern: Appropriate Voice Loudness: Normal Thought Process: Intact, Goal Oriented Thought Disorder: Not Present Hallucinations: Denies Suicidal Ideation: Denies Homicidal Ideation: Denies Insight/Judgement: Poor Sleep: Poorly Appetite: Fair Muscle strength/Tone: Normal Gait/Station: Normal Psychiatric Findings - Problem List ([place] 1, 2,3) (1) Opioid dependence with withdrawal Current Visit: Yes Status: Acute (2) ADHD (attention deficit hyperactivity disorder) Current Visit: No Status: Chronic (3) Mood disorder Current Visit: Yes Status: Chronic (4) Substance-induced sleep disorder Current Visit: Yes Status: Acute - Initial Treatment Plan Initial Treatment Plan: Psychoeducation provided. Detoxification in progress. Will order Zoloft 100mg + Trazodone 100mg HS. Benefits and side effects discussed. Patient made aware of the risk of pripasim. Verbal consent given.
[2018-05-05] MEDS ORDERED: METHADONE HCL 5 MG TABLET (FOR DETOX USE ONLY) PO ONE (10:00)
[2018-05-05] MEDS: PRENATAL VITAMINS W/ FOLIC ACID TABLET (FP) PO SCH (10:08)
[2018-05-05] MEDS: AZITHROMYCIN 250 MG TABLET PO SCH (10:08)
[2018-05-05] MEDS: CALCIUM 250MG/VIT-D 125 UNITS 1 COMBO TABLET PO SCH ×2 (10:08→22:09)
[2018-05-05] MEDS: NICOTINE 21 MG/24 HOURS TOPICAL PATCH TD SCH (10:10)
--- NOTE | 2018-05-05 10:49 | PN ---
BHS COWS - Scale Resting Pulse: 0= [place] 80 or Below Sweatin= Chills/Flushing Restless Observation: 0= Sits Still Pupil Size: 1= Pupils >than Normal Bone or Joint Aches: 1= Mild Discomfort Runny Nose/ Eye Tearin= Nasal Congestion GI Upset > 30mins: 1= Stomach Cramp Tremor Observation of Outstretched Hands: 2= Slight Tremor Visible Yawning Observation: 2= >3x During Session Anxiety or Irritability: 1=Feels Anxious/Irritable Goose Flesh Skin: 0=Smooth Skin COWS Score: 10 BHS Progress Note (SOAP) Subjective: body ache muscle cramp tremor sweat poor concentration low energy Objective: 05/05/18 10:51 Vital Signs Temperature 97.4 F L 05/05/18 09:06 Pulse Rate 65 05/05/18 09:06 Respiratory Rate 18 05/05/18 09:06 Blood Pressure 122/79 05/05/18 09:06 O2 Sat by Pulse Oximetry (%) Laboratory Last Values WBC 5.0 K/mm3 (4.0-10.0) 05/04/18 08:00 RBC 4.48 M/mm3 (4.00-5.60) 05/04/18 08:00 Hgb 12.8 GM/dL (11.7-16.9) 05/04/18 08:00 Hct 38.9 % (35.4-49) 05/04/18 08:00 MCV 86.8 fl (80-96) 05/04/18 08:00 MCH 28.6 pg (25.7-33.7) 05/04/18 08:00 MCHC 33.0 g/dl (32.0-35.9) 05/04/18 08:00 RDW 14.2 % (11.9-15.9) 05/04/18 08:00 Plt Count 218 K/MM3 (134-434) 05/04/18 08:00 MPV 7.8 fl (7.5-11.1) 05/04/18 08:00 Sodium 141 mmol/L (136-145) 05/04/18 08:00 Potassium 4.0 mmol/L (3.5-5.1) 05/04/18 08:00 Chloride 106 mmol/L (98-107) 05/04/18 08:00 Carbon Dioxide 28 mmol/L (21-32) 05/04/18 08:00 Anion Gap 6 MMOL/L (8-16) L 05/04/18 08:00 BUN 10 mg/dL (7-18) 05/04/18 08:00 Creatinine 1.0 mg/dL (0.55-1.3) 05/04/18 08:00 Creat Clearance w eGFR > 60 (>60) 05/04/18 08:00 Random Glucose 87 mg/dL (74-106) 05/04/18 08:00 Calcium 8.1 mg/dL (8.5-10.1) L 05/04/18 08:00 Total Bilirubin 0.3 mg/dL (0.2-1) 05/04/18 08:00 AST 25 U/L (15-37) 05/04/18 08:00 ALT 29 U/L (13-61) 05/04/18 08:00 Alkaline Phosphatase 121 U/L (45-117) H 05/04/18 08:00 Total Protein 6.1 g/dl (6.4-8.2) L 05/04/18 08:00 Albumin 3.3 g/dl (3.4-5.0) L 05/04/18 08:00 RPR Titer Nonreactive (NONREACTIVE) 05/04/18 08:00 lab noted ca++ rich food Assessment: 05/05/18 10:52 withdrawal sx Plan: continue detox
[2018-05-05] MEDS: SERTRALINE HCL 50 MG TABLET (FP) PO SCH (11:53)
[2018-05-05] MEDS: IBUPROFEN 400 MG TABLET (FP) PO PRN (13:26)
[2018-05-05 17:24] LABS: URINE APPEARANCE CLEAR; URINE BILIRUBIN NEGATIVE (<2.0 mg/dL); URINE COLOR LTYELLOW; URINE GLUCOSE (UA) NEGATIVE (NEGATIVE); URINE KETONE NEGATIVE (NEGATIVE); URINE LEUK ESTERASE NEGATIVE (NEGATIVE); URINE NITRITE NEGATIVE (NEGATIVE); URINE PROTEIN NEGATIVE (NEGATIVE); URINE UROBILINOGEN NEGATIVE mg/dL (0.2-1.0)
[2018-05-05] MEDS: traZODone HCL 100 MG TABLET (FP) PO SCH (22:09)
[2018-05-05] MEDS: THIAMINE HCL 100 MG TABLET (FP) PO SCH (22:09)
[2018-05-05] MEDS: MELATONIN 5 MG TABLETS PO PRN (22:10)
[2018-05-06] MEDS: diazePAM 5 MG TABLET PO PRN ×2 (05:15→10:06)
[2018-05-06] MEDS ORDERED: METHADONE HCL 5 MG TABLET (FOR DETOX USE ONLY) PO ONE (10:00)
[2018-05-06] MEDS: CALCIUM 250MG/VIT-D 125 UNITS 1 COMBO TABLET PO SCH ×2 (10:06→22:39)
[2018-05-06] MEDS: AZITHROMYCIN 250 MG TABLET PO SCH (10:06)
[2018-05-06] MEDS: PRENATAL VITAMINS W/ FOLIC ACID TABLET (FP) PO SCH (10:06)
[2018-05-06] MEDS: SERTRALINE HCL 50 MG TABLET (FP) PO SCH (10:06)
[2018-05-06] MEDS: NICOTINE 21 MG/24 HOURS TOPICAL PATCH TD SCH (10:06)
--- NOTE | 2018-05-06 10:46 | PN ---
BHS Progress Note (SOAP) Subjective: alert,irritable,anxious,interrupted sleep,tremor,pain in the body and back Objective: 05/06/18 10:45 Vital Signs Temperature 97.2 F L 05/06/18 09:51 Pulse Rate 61 05/06/18 09:51 Respiratory Rate 16 05/06/18 09:51 Blood Pressure 94/62 05/06/18 09:51 O2 Sat by Pulse Oximetry (%) Assessment: 05/06/18 10:46 withdrawal symptom Plan: continue detox
[2018-05-06] MEDS: IBUPROFEN 400 MG TABLET (FP) PO PRN (11:59)
[2018-05-06] MEDS ORDERED: hydrOXYzine PAMOATE 50 MG CAPSULE (FP) PO PRN (14:45)
[2018-05-06] MEDS: traZODone HCL 100 MG TABLET (FP) PO SCH (22:39)
[2018-05-06] MEDS: THIAMINE HCL 100 MG TABLET (FP) PO SCH (22:39)
[2018-05-07] MEDS ORDERED: METHADONE HCL 10 MG TABLET (FOR DETOX USE ONLY) PO ONE (10:00)
[2018-05-07] MEDS: SERTRALINE HCL 50 MG TABLET (FP) PO SCH (10:20)
[2018-05-07] MEDS: PRENATAL VITAMINS W/ FOLIC ACID TABLET (FP) PO SCH (10:20)
[2018-05-07] MEDS: CALCIUM 250MG/VIT-D 125 UNITS 1 COMBO TABLET PO SCH ×2 (10:20→22:12)
[2018-05-07] MEDS: NICOTINE 21 MG/24 HOURS TOPICAL PATCH TD SCH (10:21)
--- NOTE | 2018-05-07 12:20 | PN ---
BHS Progress Note (SOAP) Subjective: C/O SWEATS, LEG SPASMS. Objective: 05/07/18 12:20 Vital Signs 05/07/18 05/07/18 05/07/18 06:09 06:30 09:56 Temperature 97 F L 98.6 F Pulse Rate 68 82 Respiratory 18 18 20 Rate Blood Pressure 107/71 107/69 Laboratory Tests 05/04/18 05/04/18 05/04/18 08:00 08:00 08:00 WBC 5.0 RBC 4.48 Hgb 12.8 Hct 38.9 MCV 86.8 MCH 28.6 MCHC 33.0 RDW 14.2 Plt Count 218 MPV 7.8 Sodium 141 Potassium 4.0 Chloride 106 Carbon Dioxide 28 Anion Gap 6 L BUN 10 Creatinine 1.0 Creat Clearance w eGFR > 60 Random Glucose 87 Calcium 8.1 L Total Bilirubin 0.3 AST 25 ALT 29 Alkaline Phosphatase 121 H Total Protein 6.1 L Albumin 3.3 L Urine Color Urine Appearance Urine pH Ur Specific [place] Urine Protein Urine Glucose (UA) Urine Ketones Urine Blood Urine Nitrite Urine Bilirubin Urine Urobilinogen Ur Leukocyte Esterase RPR Titer Nonreactive 05/05/18 12:49 WBC RBC Hgb Hct MCV MCH MCHC RDW Plt Count MPV Sodium Potassium Chloride Carbon Dioxide Anion Gap BUN Creatinine Creat Clearance w eGFR Random Glucose Calcium Total Bilirubin AST ALT Alkaline Phosphatase Total Protein Albumin Urine Color Ltyellow Urine Appearance Clear Urine pH 8.0 D Ur Specific [place] 1.011 Urine Protein Negative Urine Glucose (UA) Negative Urine Ketones Negative Urine Blood Negative Urine Nitrite Negative Urine Bilirubin Negative Urine Urobilinogen Negative Ur Leukocyte Esterase Negative RPR Titer Assessment: 05/07/18 12:20 WITHDRAWAL SX Plan: CONTINUE DETOX
[2018-05-07] MEDS: traZODone HCL 100 MG TABLET (FP) PO SCH (22:12)
[2018-05-07] MEDS: THIAMINE HCL 100 MG TABLET (FP) PO SCH (22:12)
[2018-05-07] MEDS: MELATONIN 5 MG TABLETS PO PRN (22:13)
[2018-05-08] MEDS ORDERED: METHADONE HCL 5 MG TABLET (FOR DETOX USE ONLY) PO ONE (06:00)
[2018-05-08 06:08] VITALS: BP 112/65; PULSE 66; TEMP 97
--- NOTE | 2018-05-08 12:35 | DS ---
[facility] Detox Discharge Summary Admission Date: 05/03/18 Discharge Date: 05/08/18 - History Present History: Cocaine Dependence, Opioid Dependence Additional Comments: Patient completed detox successfully and was discharged safely. Pertinent Past History: Axiety and depression Opioid dependence Cocaine dependence Nicotine dependence COPD Seizure disorder Acute bronchitis - Physical Exam Results Vital Signs: Vital Signs Temperature 97 F L 05/08/18 06:07 Pulse Rate 66 05/08/18 06:07 Respiratory Rate 18 05/08/18 06:07 Blood Pressure 112/65 05/08/18 06:07 O2 Sat by Pulse Oximetry (%) Pertinent Admission Physical Exam Findings: Withdrawal symptoms Laboratory Tests 05/04/18 05/04/18 05/04/18 08:00 08:00 08:00 WBC 5.0 RBC 4.48 Hgb 12.8 Hct 38.9 MCV 86.8 MCH 28.6 MCHC 33.0 RDW 14.2 Plt Count 218 MPV 7.8 Sodium 141 Potassium 4.0 Chloride 106 Carbon Dioxide 28 Anion Gap 6 L BUN 10 Creatinine 1.0 Creat Clearance w eGFR > 60 Random Glucose 87 Calcium 8.1 L Total Bilirubin 0.3 AST 25 ALT 29 Alkaline Phosphatase 121 H Total Protein 6.1 L Albumin 3.3 L Urine Color Urine Appearance Urine pH Ur Specific [place] Urine Protein Urine Glucose (UA) Urine Ketones Urine Blood Urine Nitrite Urine Bilirubin Urine Urobilinogen Ur Leukocyte Esterase RPR Titer Nonreactive 05/05/18 12:49 WBC RBC Hgb Hct MCV MCH MCHC RDW Plt Count MPV Sodium Potassium Chloride Carbon Dioxide Anion Gap BUN Creatinine Creat Clearance w eGFR Random Glucose Calcium Total Bilirubin AST ALT Alkaline Phosphatase Total Protein Albumin Urine Color Ltyellow Urine Appearance Clear Urine pH 8.0 D Ur Specific [place] 1.011 Urine Protein Negative Urine Glucose (UA) Negative Urine Ketones Negative Urine Blood Negative Urine Nitrite Negative Urine Bilirubin Negative Urine Urobilinogen Negative Ur Leukocyte Esterase Negative RPR Titer Labs reviewed - Treatment Hospital Course: Detox Protocol Followed, Detoxed Safely, Responded well, Discharged Condition Good - Medication Discharge Medications: Ambulatory Orders Sertraline HCl [Zoloft -] 50 mg PO DAILY 03/21/18 Buprenorphine/Naloxone [Suboxone 8Mg/2Mg Sl Film -] 1 each SL DAILY #7 packet MDD 1 04/21/18 Sertraline HCl [Zoloft] 100 mg PO DAILY #30 tablet 04/21/18 hydrOXYzine PAMOATE [Vistaril -] 50 mg PO DAILY #30 capsule 04/21/18 traZODone HCL [Desyrel -] 100 mg PO HS #30 tablet 04/21/18 - Diagnosis (1) Anxiety and depression Status: Acute (2) Bronchitis Status: Acute (3) Cocaine dependence Status: Chronic Qualifiers: Substance use status: uncomplicated Qualified Code(s): F14.20 - Cocaine dependence, uncomplicated (4) Nicotine dependence Status: Chronic Qualifiers: Nicotine product type: cigarettes Substance use status: in withdrawal Qualified Code(s): F17.213 - Nicotine dependence, cigarettes, with withdrawal (5) Opioid dependence with withdrawal Status: Acute (6) COPD (chronic obstructive pulmonary disease) Status: Chronic (7) Seizures Status: Chronic - AMA Did Patient Leave Against Medical Advice: No (F/U with PCP within 1-2 weeks)
== END 2018-05-08 08:15 | disposition home or self-care (01) | DRG 773 ==
LOC: YASAS 08:58 → Y3N 10:19
PROC: HZ2ZZZZ Detoxification Services for Substance Abuse Treatment (ICD-10-PCS; principal; 2018-05-03)
DX: F11.23 Opioid dependence with withdrawal (principal); F14.20 Cocaine dependence, uncomplicated; F17.213 Nicotine dependence, cigarettes, with withdrawal; F39 Unspecified mood [affective] disorder; F19.282 Other psychoactive substance dependence with psychoactive substance-induced sleep disorder; F41.8 Other specified anxiety disorders; F90.9 Attention-deficit hyperactivity disorder, unspecified type; E86.0 Dehydration; J20.9 Acute bronchitis, unspecified; J44.9 Chronic obstructive pulmonary disease, unspecified; G40.909 Epilepsy, unspecified, not intractable, without status epilepticus; E83.51 Hypocalcemia
CPT/HCPCS: 36415; 71046-TC-FY; 80053; 81003; 85027; 86593

== ENCOUNTER 2020-03-23 18:34 | Inpatient (IN) | payer OTHER ==
[2020-03-23 19:58] VITALS: BMI 32.1
[2020-03-23] MEDS ORDERED: cloNIDine HCL 0.1 MG TABLET PO PRN (21:12)
[2020-03-23] MEDS ORDERED: METHADONE HCL 10 MG TABLET (FOR DETOX USE ONLY) PO ONE (21:12)
[2020-03-23] MEDS ORDERED: MAGNESIUM HYDROX 2400MG/30ML ORAL SUSPENSION 30 ML CUP PO PRN (21:12)
[2020-03-23] MEDS ORDERED: NICOTINE POLACRILEX 2 MG GUM BUC PRN (21:12)
[2020-03-23] MEDS ORDERED: MAG HYDROX/AL HYDROX/SIMETH 30 ML UNIT-DOSE CUP PO PRN (21:12)
[2020-03-23] MEDS ORDERED: MENTHOL/PHENOL 1 EACH UD MM PRN (21:12)
[2020-03-23] MEDS ORDERED: MAGNESIUM CITRATE 300 ML BOTTLE PO PRN (21:12)
[2020-03-23] MEDS ORDERED: ACETAMINOPHEN 325 MG TABLET (FP) PO PRN (21:12)
[2020-03-23] MEDS ORDERED: traZODone HCL 50 MG TABLET (FP) PO ONE (22:00)
[2020-03-23] MEDS: MELATONIN 5 MG TABLETS PO SCH (22:45)
[2020-03-23] MEDS: diazePAM 5 MG TABLET PO PRN (22:45)
[2020-03-23] MEDS: THIAMINE HCL 100 MG TABLET (FP) PO SCH (22:45)
[2020-03-23] MEDS ORDERED: ALBUTEROL SO4 HFA INHALER IH PRN (23:11)
[2020-03-24] MEDS: CEPHALEXIN MONOHYDRATE 500 MG CAPSULE (UD) PO SCH ×3 (06:06→17:27)
[2020-03-24] MEDS: diazePAM 5 MG TABLET PO PRN ×3 (06:06→17:27)
[2020-03-24] MEDS ORDERED: METHADONE HCL 5 MG TABLET (FOR DETOX USE ONLY) ONE (09:37)
[2020-03-24] MEDS ORDERED: METHADONE HCL 10 MG TABLET (FOR DETOX USE ONLY) ONE (09:37)
[2020-03-24] MEDS ORDERED: METHADONE (DETOX) 20 MG, METHADONE (DETOX) 5 MG PO ONE (10:00)
[2020-03-24] MEDS: PANTOPRAZOLE 40 MG TABLET PO SCH (10:26)
[2020-03-24] MEDS: NICOTINE 14 MG/24 HOURS TOPICAL PATCH TD SCH (10:27)
[2020-03-24] MEDS: PRENATAL VITAMINS W/ FOLIC ACID TABLET (FP) PO SCH (10:27)
[2020-03-24] MEDS: hydrOXYzine PAMOATE 50 MG CAPSULE (FP) PO PRN (10:28)
[2020-03-24] MEDS: METHOCARBAMOL 500 MG TABLET PO PRN ×2 (10:28→17:27)
[2020-03-24] MEDS: BISMUTH SUBSALICYLATE 524 MG/30 ML UD PO PRN (10:41)
[2020-03-24 12:29] LABS: HEMATOCRIT 43.1 % (35.4-49); HEMOGLOBIN 14.2 GM/dL (11.7-16.9); MCH 28.1 pg (25.7-33.7); MCHC 32.9 g/dl (32.0-35.9); MEAN CELL VOLUME 85.4 fl (80-96); MEAN PLT VOLUME 8.6 fl (7.5-11.1); PLATELET COUNT 254 K/MM3 (134-434); RBC 5.04 M/mm3 (4.00-5.60); RDW 14.7 % (11.9-15.9); WHITE BLOOD COUNT 8.2 K/mm3 (4.0-10.0)
[2020-03-24 12:49] LABS: POTASSIUM 3.9 mmol/L (3.5-5.1)
[2020-03-24 13:06] LABS: ALBUMIN 3.8 g/dl (3.4-5.0); BLOOD UREA NITROGEN 18.4 mg/dL (7-18); CALCIUM 9.4 mg/dL (8.5-10.1)
[2020-03-24 13:09] LABS: CREATININE 1.3 mg/dL (0.55-1.3)
[2020-03-24 13:11] LABS: BILIRUBIN,TOTAL 0.5 mg/dL (0.2-1); TOT PROT 7.5 g/dl (6.4-8.2)
[2020-03-24 13:50] LABS: HIV INTERPRETATION NEGATIVE (NEGATIVE)
[2020-03-24] MEDS ORDERED: LOPERAMIDE HCL 2 MG CAPSULE PO ONE (14:09)
[2020-03-24] MEDS: ACETAMINOPHEN 325 MG TABLET (FP) PO PRN ×2 (14:11→20:35)
[2020-03-24] MEDS: IBUPROFEN 400 MG TABLET (FP) PO PRN (16:34)
[2020-03-24] MEDS: THIAMINE HCL 100 MG TABLET (FP) PO SCH (22:32)
[2020-03-24] MEDS: traZODone HCL 100 MG TABLET (FP) PO SCH (22:32)
[2020-03-24] MEDS: MELATONIN 5 MG TABLETS PO SCH (22:32)
[2020-03-25] MEDS: CEPHALEXIN MONOHYDRATE 500 MG CAPSULE (UD) PO SCH ×5 (01:48→23:00)
[2020-03-25] MEDS: diazePAM 5 MG TABLET PO PRN ×4 (04:47→22:13)
[2020-03-25] MEDS ORDERED: METHADONE HCL 10 MG TABLET (FOR DETOX USE ONLY) PO ONE (10:00)
[2020-03-25] MEDS: PANTOPRAZOLE 40 MG TABLET PO SCH (10:03)
[2020-03-25] MEDS: PRENATAL VITAMINS W/ FOLIC ACID TABLET (FP) PO SCH (10:04)
[2020-03-25] MEDS: NICOTINE 14 MG/24 HOURS TOPICAL PATCH TD SCH (10:04)
[2020-03-25] MEDS ORDERED: METHOCARBAMOL 750 MG TAB PO ONE (11:00)
[2020-03-25] MEDS: IBUPROFEN 400 MG TABLET (FP) PO PRN (11:00)
[2020-03-25] MEDS ORDERED: LOPERAMIDE HCL 2 MG CAPSULE PO ONE (11:00)
[2020-03-25] MEDS: METHYL SALICYLATE/MENTHOL OINT 30 GM TUBE TP SCH ×2 (13:45→22:13)
[2020-03-25] MEDS: ONDANSETRON *ODT* 4 MG TABLET SL PRN (16:06)
[2020-03-25] MEDS: traZODone HCL 100 MG TABLET (FP) PO SCH (22:14)
[2020-03-25] MEDS: MELATONIN 5 MG TABLETS PO SCH (22:14)
[2020-03-25] MEDS: THIAMINE HCL 100 MG TABLET (FP) PO SCH (22:14)
[2020-03-25] MEDS: hydrOXYzine PAMOATE 50 MG CAPSULE (FP) PO PRN (22:14)
[2020-03-26] MEDS: diazePAM 5 MG TABLET PO PRN (05:40)
[2020-03-26] MEDS: CEPHALEXIN MONOHYDRATE 500 MG CAPSULE (UD) PO SCH (05:40)
[2020-03-26] MEDS: ONDANSETRON *ODT* 4 MG TABLET SL PRN (08:34)
[2020-03-26] MEDS: BISMUTH SUBSALICYLATE 524 MG/30 ML UD PO PRN (08:34)
[2020-03-26] MEDS ORDERED: METHADONE HCL 5 MG TABLET (FOR DETOX USE ONLY) ONE (08:52)
[2020-03-26] MEDS ORDERED: METHADONE HCL 10 MG TABLET (FOR DETOX USE ONLY) ONE (08:52)
[2020-03-26] MEDS ORDERED: LOPERAMIDE HCL 2 MG CAPSULE PO ONE (09:07)
[2020-03-26] MEDS ORDERED: DICYCLOMINE HCL 10 MG CAPSULE PO ONE (09:07)
[2020-03-26 09:37] VITALS: BP 112/59; PULSE 97; TEMP 97.5
[2020-03-26] MEDS: METHOCARBAMOL 500 MG TABLET PO PRN (09:58)
[2020-03-26] MEDS: PANTOPRAZOLE 40 MG TABLET PO SCH (09:58)
[2020-03-26] MEDS: METHYL SALICYLATE/MENTHOL OINT 30 GM TUBE TP SCH (09:58)
[2020-03-26] MEDS: PRENATAL VITAMINS W/ FOLIC ACID TABLET (FP) PO SCH (09:58)
[2020-03-26] MEDS: NICOTINE 14 MG/24 HOURS TOPICAL PATCH TD SCH (10:00)
[2020-03-26] MEDS ORDERED: METHADONE (DETOX) 10 MG, METHADONE (DETOX) 5 MG PO ONE (10:00)
[2020-03-27] MEDS ORDERED: METHADONE HCL 10 MG TABLET (FOR DETOX USE ONLY) PO ONE (10:00)
[2020-03-28] MEDS ORDERED: METHADONE HCL 5 MG TABLET (FOR DETOX USE ONLY) PO ONE (06:00)
== END 2020-03-26 10:06 | disposition home or self-care (01) | DRG 773 ==
LOC: YASAS 18:34 → Y3N 21:38
PROVIDERS: ADMIT Allergy & Immunology; ATTEND Allergy & Immunology
PROC: HZ2ZZZZ Detoxification Services for Substance Abuse Treatment (ICD-10-PCS; principal; 2020-03-23)
DX: F11.23 Opioid dependence with withdrawal (principal); F13.10 Sedative, hypnotic or anxiolytic abuse, uncomplicated; F17.210 Nicotine dependence, cigarettes, uncomplicated; F19.282 Other psychoactive substance dependence with psychoactive substance-induced sleep disorder; F19.24 Other psychoactive substance dependence with psychoactive substance-induced mood disorder; F90.9 Attention-deficit hyperactivity disorder, unspecified type; I10 Essential (primary) hypertension; J43.0 Unilateral pulmonary emphysema [MacLeod's syndrome]; K21.9 Gastro-esophageal reflux disease without esophagitis; L03.114 Cellulitis of left upper limb; M17.0 Bilateral primary osteoarthritis of knee; M19.041 Primary osteoarthritis, right hand; M19.042 Primary osteoarthritis, left hand; M54.89 Other dorsalgia; Z56.0 Unemployment, unspecified; Z59.0 Homelessness; Z88.0 Allergy status to penicillin; Z88.1 Allergy status to other antibiotic agents; Z91.013 Allergy to seafood
CPT/HCPCS: 36415; 80053; 85027; 86780; 87389; 93005; 93010; C9803; J0735; Q0162; U0003

== ENCOUNTER 2020-04-05 12:54 | Inpatient (IN) | payer OTHER ==
[2020-04-05] MEDS ORDERED: MENTHOL/PHENOL 1 EACH UD MM PRN (13:18)
[2020-04-05] MEDS ORDERED: guaiFENesin 200 MG/10 ML 10 ML UNIT-DOSE CUPS PO PRN (13:18)
[2020-04-05] MEDS ORDERED: NICOTINE POLACRILEX 2 MG GUM BUC PRN (13:18)
[2020-04-05] MEDS ORDERED: P-EPHED 60MG/TRIPROLIDI 2.5MG TABLET PO PRN (13:18)
[2020-04-05] MEDS ORDERED: LOPERAMIDE HCL 2 MG CAPSULE PO PRN (13:18)
[2020-04-05] MEDS ORDERED: MAGNESIUM CITRATE 300 ML BOTTLE PO PRN (13:18)
[2020-04-05] MEDS ORDERED: hydrOXYzine PAMOATE 25 MG CAPSULE (FP) PO PRN (13:18)
[2020-04-05] MEDS ORDERED: MAG HYDROX/AL HYDROX/SIMETH 30 ML UNIT-DOSE CUP PO PRN (13:18)
[2020-04-05] MEDS ORDERED: IBUPROFEN 400 MG TABLET (FP) PO PRN (13:18)
[2020-04-05] MEDS ORDERED: MAGNESIUM HYDROX 2400MG/30ML ORAL SUSPENSION 30 ML CUP PO PRN (13:18)
[2020-04-05] MEDS ORDERED: ACETAMINOPHEN 325 MG TABLET (FP) PO PRN (13:18)
[2020-04-05] MEDS ORDERED: ALBUTEROL SO4 HFA INHALER IH PRN (13:19)
[2020-04-05] MEDS: METHOCARBAMOL 750 MG TABLET PO SCH ×3 (14:54→21:23)
[2020-04-05] MEDS: LIDOCAINE 5% TOPICAL PATCH TP SCH (14:54)
[2020-04-05 21:56] VITALS: TEMP 97.3
[2020-04-05] MEDS ORDERED: THIAMINE HCL 100 MG TABLET (FP) PO SCH (22:00)
[2020-04-05] MEDS ORDERED: LIDOCAINE PATCH REMOVAL MC SCH ×2 (22:00)
[2020-04-05] MEDS ORDERED: traZODone HCL 100 MG TABLET (FP) PO SCH (22:00)
[2020-04-05] MEDS ORDERED: MELATONIN 5 MG TABLETS PO SCH (22:00)
[2020-04-06 07:09] VITALS: BP 134/74; PULSE 79
[2020-04-06] MEDS ORDERED: PT OWN MED DRAWER 7, Y5N ONE ×2 (08:52→13:32)
[2020-04-06] MEDS: METHOCARBAMOL 750 MG TABLET PO SCH ×2 (09:54→13:36)
[2020-04-06] MEDS: LIDOCAINE 5% TOPICAL PATCH TP SCH (09:54)
[2020-04-06] MEDS ORDERED: PRENATAL VITAMINS W/ FOLIC ACID TABLET (FP) PO SCH (10:00)
[2020-04-06] MEDS ORDERED: LIDOCAINE 5% TOPICAL PATCH TP SCH (10:00)
[2020-04-06] MEDS ORDERED: hydrOXYzine PAMOATE 25 MG CAPSULE (FP) PO SCH (10:00)
[2020-04-06] MEDS ORDERED: NICOTINE 7 MG/24 HOURS TOPICAL PATCH TD SCH (10:00)
== END 2020-04-06 15:40 | disposition left against medical advice (07) | DRG 770 ==
LOC: YASAS 12:54 → Y3W 12:56
PROVIDERS: ADMIT Allergy & Immunology; ATTEND Allergy & Immunology
PROC: HZ42ZZZ Group Counseling for Substance Abuse Treatment, Cognitive-Behavioral (ICD-10-PCS; principal; 2020-04-05)
DX: F11.20 Opioid dependence, uncomplicated (principal); F13.20 Sedative, hypnotic or anxiolytic dependence, uncomplicated; F14.20 Cocaine dependence, uncomplicated; F17.210 Nicotine dependence, cigarettes, uncomplicated; F33.9 Major depressive disorder, recurrent, unspecified; J43.0 Unilateral pulmonary emphysema [MacLeod's syndrome]; G47.00 Insomnia, unspecified; Z88.1 Allergy status to other antibiotic agents; Z91.013 Allergy to seafood; Z86.69 Personal history of other diseases of the nervous system and sense organs

== ENCOUNTER 2020-04-10 09:16 | Inpatient (IN) | payer OTHER ==
[2020-04-10 10:03] VITALS: BMI 32.9
[2020-04-10] MEDS ORDERED: MAGNESIUM CITRATE 300 ML BOTTLE PO PRN (13:50)
[2020-04-10] MEDS ORDERED: ONDANSETRON *ODT* 4 MG TABLET SL PRN (13:50)
[2020-04-10] MEDS ORDERED: MAGNESIUM HYDROX 2400MG/30ML ORAL SUSPENSION 30 ML CUP PO PRN (13:50)
[2020-04-10] MEDS ORDERED: MENTHOL/PHENOL 1 EACH UD MM PRN (13:50)
[2020-04-10] MEDS ORDERED: ACETAMINOPHEN 325 MG TABLET (FP) PO PRN ×2 (13:50)
[2020-04-10] MEDS ORDERED: NICOTINE POLACRILEX 2 MG GUM BUC PRN (13:50)
[2020-04-10] MEDS ORDERED: cloNIDine HCL 0.1 MG TABLET PO PRN (13:50)
[2020-04-10] MEDS ORDERED: METHADONE HCL 10 MG TABLET (FOR DETOX USE ONLY) PO ONE (13:50)
[2020-04-10] MEDS ORDERED: hydrOXYzine PAMOATE 25 MG CAPSULE (FP) PO SCH (14:00)
[2020-04-10] MEDS: IBUPROFEN 400 MG TABLET (FP) PO PRN (15:49)
[2020-04-10] MEDS: NICOTINE 14 MG/24 HOURS TOPICAL PATCH TD SCH (15:49)
[2020-04-10 17:57] LABS: POTASSIUM 3.7 mmol/L (3.5-5.1)
[2020-04-10] MEDS: BISMUTH SUBSALICYLATE 524 MG/30 ML UD PO PRN (17:58)
[2020-04-10 18:00] LABS: ALBUMIN 3.6 g/dl (3.4-5.0); BLOOD UREA NITROGEN 13.9 mg/dL (7-18); CALCIUM 8.6 mg/dL (8.5-10.1); HEMOGLOBIN 12.9 GM/dL (11.7-16.9); MCH 27.4 pg (25.7-33.7); MCHC 32.4 g/dl (32.0-35.9); MEAN CELL VOLUME 84.7 fl (80-96); PLATELET COUNT 186 K/MM3 (134-434); RBC 4.72 M/mm3 (4.00-5.60); RDW 14.8 % (11.9-15.9); WHITE BLOOD COUNT 6.2 K/mm3 (4.0-10.0)
[2020-04-10 18:04] LABS: CREATININE 1.2 mg/dL (0.55-1.3)
[2020-04-10 18:05] LABS: BILIRUBIN,TOTAL 0.7 mg/dL (0.2-1)
[2020-04-10] MEDS: hydrOXYzine PAMOATE 25 MG CAPSULE (FP) PO PRN (22:20)
[2020-04-10] MEDS: METHOCARBAMOL 500 MG TABLET PO PRN (22:20)
[2020-04-10] MEDS: MELATONIN 5 MG TABLETS PO SCH (22:20)
[2020-04-10] MEDS: THIAMINE HCL 100 MG TABLET (FP) PO SCH (22:20)
[2020-04-11] MEDS: hydrOXYzine PAMOATE 25 MG CAPSULE (FP) PO PRN (07:58)
[2020-04-11] MEDS ORDERED: METHADONE HCL 10 MG TABLET (FOR DETOX USE ONLY) ONE (09:10)
[2020-04-11] MEDS ORDERED: METHADONE HCL 5 MG TABLET (FOR DETOX USE ONLY) ONE (09:10)
[2020-04-11] MEDS ORDERED: METHADONE (DETOX) 20 MG, METHADONE (DETOX) 5 MG PO ONE (10:00)
[2020-04-11] MEDS: METHOCARBAMOL 500 MG TABLET PO PRN (10:16)
[2020-04-11] MEDS: PRENATAL VITAMINS W/ FOLIC ACID TABLET (FP) PO SCH (10:16)
[2020-04-11] MEDS: IBUPROFEN 400 MG TABLET (FP) PO PRN (10:16)
[2020-04-11] MEDS: NICOTINE 14 MG/24 HOURS TOPICAL PATCH TD SCH (10:16)
[2020-04-11] MEDS: BISMUTH SUBSALICYLATE 524 MG/30 ML UD PO PRN ×2 (10:17→11:22)
[2020-04-11] MEDS: diazePAM 5 MG TABLET PO SCH ×3 (11:19→22:29)
[2020-04-11] MEDS: diazePAM 5 MG TABLET PO PRN ×2 (13:16→20:00)
[2020-04-11] MEDS: MELATONIN 5 MG TABLETS PO SCH (22:29)
[2020-04-11] MEDS: traZODone HCL 100 MG TABLET (FP) PO SCH (22:29)
[2020-04-11] MEDS: THIAMINE HCL 100 MG TABLET (FP) PO SCH (22:29)
[2020-04-12] MEDS: diazePAM 5 MG TABLET PO PRN ×4 (01:48→18:59)
[2020-04-12] MEDS: diazePAM 5 MG TABLET PO SCH ×3 (06:24→22:22)
[2020-04-12] MEDS ORDERED: METHADONE HCL 10 MG TABLET (FOR DETOX USE ONLY) PO ONE (10:00)
[2020-04-12] MEDS: NICOTINE 14 MG/24 HOURS TOPICAL PATCH TD SCH (10:41)
[2020-04-12] MEDS: PRENATAL VITAMINS W/ FOLIC ACID TABLET (FP) PO SCH (10:41)
[2020-04-12] MEDS: METHOCARBAMOL 750 MG TAB PO PRN (10:42)
[2020-04-12] MEDS: traZODone HCL 100 MG TABLET (FP) PO SCH (22:22)
[2020-04-12] MEDS: MELATONIN 5 MG TABLETS PO SCH (22:22)
[2020-04-12] MEDS: THIAMINE HCL 100 MG TABLET (FP) PO SCH (22:22)
[2020-04-13] MEDS: diazePAM 5 MG TABLET PO PRN (01:32)
[2020-04-13] MEDS: diazePAM 5 MG TABLET PO SCH ×4 (05:39→22:28)
[2020-04-13] MEDS ORDERED: METHADONE HCL 10 MG TABLET (FOR DETOX USE ONLY) ONE (08:55)
[2020-04-13] MEDS ORDERED: METHADONE HCL 5 MG TABLET (FOR DETOX USE ONLY) ONE (08:55)
[2020-04-13] MEDS ORDERED: METHADONE (DETOX) 10 MG, METHADONE (DETOX) 5 MG PO ONE (10:00)
[2020-04-13] MEDS: METHOCARBAMOL 750 MG TAB PO PRN ×2 (10:08→22:27)
[2020-04-13] MEDS: hydrOXYzine PAMOATE 50 MG CAPSULE (FP) PO PRN ×3 (10:08→18:25)
[2020-04-13] MEDS: PRENATAL VITAMINS W/ FOLIC ACID TABLET (FP) PO SCH (10:08)
[2020-04-13] MEDS: NICOTINE 14 MG/24 HOURS TOPICAL PATCH TD SCH (10:08)
[2020-04-13] MEDS: MAG HYDROX/AL HYDROX/SIMETH 30 ML UNIT-DOSE CUP PO PRN (11:42)
[2020-04-13] MEDS: IBUPROFEN 400 MG TABLET (FP) PO PRN ×2 (13:00→18:25)
[2020-04-13] MEDS: NYSTATIN 100,000 UNIT/GM TOPICAL CREAM 15 GM TUBE TP SCH ×2 (14:51→22:56)
[2020-04-13] MEDS: THIAMINE HCL 100 MG TABLET (FP) PO SCH (22:27)
[2020-04-13] MEDS: traZODone HCL 100 MG TABLET (FP) PO SCH (22:27)
[2020-04-13] MEDS: MELATONIN 5 MG TABLETS PO SCH (22:28)
[2020-04-14] MEDS: diazePAM 5 MG TABLET PO SCH ×2 (06:19→17:48)
[2020-04-14] MEDS: MAG HYDROX/AL HYDROX/SIMETH 30 ML UNIT-DOSE CUP PO PRN (06:48)
[2020-04-14] MEDS ORDERED: METHADONE HCL 10 MG TABLET (FOR DETOX USE ONLY) PO ONE (10:00)
[2020-04-14] MEDS: METHOCARBAMOL 750 MG TAB PO PRN ×2 (10:22→22:30)
[2020-04-14] MEDS: PRENATAL VITAMINS W/ FOLIC ACID TABLET (FP) PO SCH (10:22)
[2020-04-14] MEDS: NYSTATIN 100,000 UNIT/GM TOPICAL CREAM 15 GM TUBE TP SCH ×2 (10:22→22:31)
[2020-04-14] MEDS: hydrOXYzine PAMOATE 50 MG CAPSULE (FP) PO PRN ×3 (10:22→22:28)
[2020-04-14] MEDS: NICOTINE 14 MG/24 HOURS TOPICAL PATCH TD SCH (10:23)
[2020-04-14] MEDS: THIAMINE HCL 100 MG TABLET (FP) PO SCH (22:29)
[2020-04-14] MEDS: MELATONIN 5 MG TABLETS PO SCH (22:29)
[2020-04-14] MEDS: traZODone HCL 100 MG TABLET (FP) PO SCH (22:29)
[2020-04-15] MEDS ORDERED: METHADONE HCL 5 MG TABLET (FOR DETOX USE ONLY) PO ONE (06:00)
[2020-04-15] MEDS ORDERED: diazePAM 5 MG TABLET PO ONE (06:00)
[2020-04-15] MEDS: IBUPROFEN 400 MG TABLET (FP) PO PRN (09:56)
[2020-04-15] MEDS: MAG HYDROX/AL HYDROX/SIMETH 30 ML UNIT-DOSE CUP PO PRN (09:56)
[2020-04-15 11:27] VITALS: BP 122/90; PULSE 97; TEMP 97.5
== END 2020-04-15 11:07 | disposition home or self-care (01) | DRG 773 ==
LOC: YASAS 09:16 → Y6N 14:05
PROVIDERS: ADMIT Allergy & Immunology; ATTEND Allergy & Immunology
PROC: HZ2ZZZZ Detoxification Services for Substance Abuse Treatment (ICD-10-PCS; principal; 2020-04-10)
DX: F11.23 Opioid dependence with withdrawal (principal); F13.230 Sedative, hypnotic or anxiolytic dependence with withdrawal, uncomplicated; F14.20 Cocaine dependence, uncomplicated; F12.10 Cannabis abuse, uncomplicated; F17.210 Nicotine dependence, cigarettes, uncomplicated; F41.1 Generalized anxiety disorder; F90.9 Attention-deficit hyperactivity disorder, unspecified type; F19.24 Other psychoactive substance dependence with psychoactive substance-induced mood disorder; F19.282 Other psychoactive substance dependence with psychoactive substance-induced sleep disorder; F39 Unspecified mood [affective] disorder; I10 Essential (primary) hypertension; J43.9 Emphysema, unspecified; R73.03 Prediabetes; L90.5 Scar conditions and fibrosis of skin; R74.01 Elevation of levels of liver transaminase levels; K21.9 Gastro-esophageal reflux disease without esophagitis; M54.5 Low back pain; G89.29 Other chronic pain; Z88.0 Allergy status to penicillin; Z88.1 Allergy status to other antibiotic agents; Z91.013 Allergy to seafood; Z86.69 Personal history of other diseases of the nervous system and sense organs; Z59.0 Homelessness
CPT/HCPCS: 36415; 80053; 82947; 85027; 86780; C9803; J0735; U0003